=== PATIENT | female | born 1950 | race Caucasian/White ===

== ENCOUNTER → 2016-03-12 | Outpatient (CLI) | payer OTHER ==
[~2016-03-12] MED LIST: ASPI81TA21 PO; ATEN100T PO; BIOT1CAP8 PO; BIOTCAP2 PO; CHOL1TAB42 PO; CINN500T PO; CLON0.1T12 PO; COEN100C7 PO; COEN50CA22 PO; COQ10 PO; CTP/1 PO; CYAN100T6 PO; FLUT1SPR12 NAE; KRIL1CAP7 PO; LISI-461 PO; LISI-725 PO; LORA-741 PO; MECL1TAB42 PO; MULT-1016 PO; NTRGSL/4 UT; OMEG10007 PO; PANT40TA PO; PRT40 PO; PRVHFAIN INH; STRESS TAB PO; TRAM-453 PO; TURM1CAP4 PO; [UNRECOGNIZED DRUG - CODE] PO
[2016-03-12 14:36] LABS: BASO % 0.4 %; BASO ABS # 0.03 K/uL (0-0.2); COMPLETE YES; EOS % 0.7 %; HEMATOCRIT 41.1 % (37-47); IG% 0.1 %; LYMPH % 37.2 %; LYMPH ABS # 3.03 K/uL (1.2-3.4); MEAN CELL VOLUME 88.4 fL (80-100); MEAN CORPUSCULAR HEMOGLOBIN 30.3 pg (25-34); MEAN CORPUSCULAR HGB CONC 34.3 g/dl (32-36); MEAN PLATELET VOLUME 10.2 fL (7.4-10.4); NEUT % 56.6 %; PLATELET COUNT 282 K/uL (130-400); RED BLOOD COUNT 4.65 M/uL (4.2-5.4); WHITE BLOOD COUNT 8.14 K/uL (4.8-10.8)
[2016-03-12 15:07] LABS: ALT/SGPT 24 U/L (12-78); AST/SGOT 13 U/L (15-37); BLOOD UREA NITROGEN 12 mg/dl (7-18); BUN/CREATININE RATIO 14.5 (10-20); CALCIUM 8.8 mg/dl (8.5-10.1); CARBON DIOXIDE 29 mmol/L (21-32); CHLORIDE 104 mmol/L (98-107); CREATININE 0.81 mg/dl (0.60-1.20); GLUCOSE 81 mg/dl (70-99); SODIUM 141 mmol/L (136-145); TRIGLYCERIDES 497 mg/dl (0-150)
[2016-03-12 15:19] LABS: ALB/GLOB RATIO 1.2 (0.9-2); ALKALINE PHOSPHATASE 71 U/L (45-117); CHOLESTEROL 250 mg/dl (0-200); CHOLESTEROL/HDL RATIO 6.1; HDL CHOLESTEROL 41 mg/dl
--- NOTE | 2016-03-16 11:46 | CODING QUERY MEDICAL NECESSITY ---
SUPPORTING DIAGNOSIS NEEDED A supporting diagnosis is required for the test/procedure performed on this patient in order for us to be reimbursed by the patient's insurance. Please provide a supporting diagnosis for the following test/procedure listed below next to the test name along with your signature. *If there is no additional diagnosis for this patient that would support the following test/procedure please document that below next to the test/procedure. Test(s)/Procedure(s) that require a supporting diagnosis: DOS 03/12 * Vitamin D DIAGNOSIS: Provider Signature: Date: Thank you Ana Colindres Health Information Management Once completed, please kindly fax back to [phone] For questions please call [phone]
== END | disposition home or self-care (01) ==
LOC: C.LAB1850 13:26
PROVIDERS: ATTEND Internal Medicine
DX: R73.9 Hyperglycemia, unspecified (principal); E78.00 Pure hypercholesterolemia, unspecified; R53.83 Other fatigue; E55.9 Vitamin D deficiency, unspecified

== ENCOUNTER → 2016-04-13 | Outpatient (CLI) | payer OTHER | END | disposition home or self-care (01) | LOC: C.MAMM 10:34 | PROVIDERS: ATTEND Internal Medicine | DX: Z13.820 Encounter for screening for osteoporosis (principal); M85.852 Other specified disorders of bone density and structure, left thigh ==

== ENCOUNTER → 2016-04-15 | Outpatient (CLI) | payer OTHER ==
--- NOTE | 2016-04-15 16:34 | MAMMOGRAPHY REPORT ---
BILATERAL DIGITAL SCREENING MAMMOGRAM WITH CAD: 04/15/2016 CLINICAL HISTORY: Routine screening. Patient has no complaints. TECHNIQUE: Current study was also evaluated with a Computer Aided Detection (CAD) system. Bilatera l CC and MLO views were obtained. COMPARISON: Comparison is made to exams dated: 11/12/2014 mammogram and 04/25/2003 mammogram - [facility]. BREAST COMPOSITION: There are scattered areas of fibroglandular density in both breasts. FINDINGS: No suspicious masses, calcifications, or areas of architectural distortion are noted in e ither breast. There has been no significant interval change compared to prior exams. Scattered bilat eral benign-appearing calcifications are not significantly changed. IMPRESSION: ACR BI-RADS CATEGORY 2: BENIGN There is no mammographic evidence of malignancy. A 1 year screening mammogram is recommended. The p atient will receive written notification of the results. Approximately 10% of breast cancers are not detected with mammography. A negative mammographic repor t should not delay biopsy if a clinically suggestive mass is present. Elida Ackerman M.D. ah/:04/15/2016 16:21:04 Facility Operations Manager: Keyona ANDREAR, M, [facility] letter sent: Normal 1/2 BI-RADS Code: ACR BI-RADS Category 2: Benign
== END | disposition home or self-care (01) ==
LOC: C.MAMM 15:45
PROVIDERS: ATTEND Internal Medicine
DX: Z12.31 Encounter for screening mammogram for malignant neoplasm of breast (principal)

== ENCOUNTER → 2016-05-25 | Outpatient (CLI) | payer OTHER ==
[2016-05-25 10:18] LABS: ALB/GLOB RATIO 1.1 (0.9-2); ALKALINE PHOSPHATASE 82 U/L (45-117); ALT/SGPT 21 U/L (12-78); AST/SGOT 13 U/L (15-37); BLOOD UREA NITROGEN 14 mg/dl (7-18); BUN/CREATININE RATIO 17.3 (10-20); CALCIUM 8.8 mg/dl (8.5-10.1); CARBON DIOXIDE 26 mmol/L (21-32); CHLORIDE 108 mmol/L (98-107); CHOLESTEROL 258 mg/dl (0-200); CREATININE 0.79 mg/dl (0.60-1.20); GLUCOSE 113 mg/dl (70-99); POTASSIUM 4.2 mmol/L (3.5-5.1); SODIUM 142 mmol/L (136-145); TRIGLYCERIDES 234 mg/dl (0-150); VERY LOW DENSITY LIPOPROT CALC 47 mg/dl
[2016-05-25 10:21] LABS: CHOLESTEROL/HDL RATIO 6.1; HDL CHOLESTEROL 42 mg/dl; LDL CHOLESTEROL CALCULATED 169 mg/dl
== END | disposition home or self-care (01) ==
LOC: C.LAB1850 08:34
PROVIDERS: ATTEND Internal Medicine
DX: E78.00 Pure hypercholesterolemia, unspecified (principal); Z11.59 Encounter for screening for other viral diseases

== ENCOUNTER 2016-06-02 13:31 | Observation (INO) | payer OTHER ==
[~2016-06-02] VITALS: Ht 167.6 cm; Wt 89.4 kg
[~2016-06-02 13:31] MED LIST changes: -BIOT1CAP8 PO; -CLON0.1T12 PO; -COEN100C7 PO; -COQ10 PO; -CYAN100T6 PO; -FLUT1SPR12 NAE; -KRIL1CAP7 PO; -LISI-461 PO; -LORA-741 PO; -MULT-1016 PO; -PANT40TA PO; -PRVHFAIN INH; -STRESS TAB PO; -TRAM-453 PO; -TURM1CAP4 PO
[2016-06-02 14:33] LABS: BASO % 0.4 %; BASO ABS # 0.03 K/uL (0-0.2); COMPLETE YES; EOS % 0.8 %; HEMATOCRIT 40.9 % (37-47); IG% 0.1 %; LYMPH % 34.2 %; LYMPH ABS # 2.46 K/uL (1.2-3.4); MEAN CELL VOLUME 88.3 fL (80-100); MEAN CORPUSCULAR HEMOGLOBIN 30.7 pg (25-34); MEAN CORPUSCULAR HGB CONC 34.7 g/dl (32-36); MEAN PLATELET VOLUME 10.2 fL (7.4-10.4); MONO % 5.8 %; NEUT % 58.7 %; PLATELET COUNT 266 K/uL (130-400); RED BLOOD COUNT 4.63 M/uL (4.2-5.4); WHITE BLOOD COUNT 7.19 K/uL (4.8-10.8)
[2016-06-02] MEDS ORDERED: OPTIRAY 320 IV PRN (14:45)
[2016-06-02 15:05] LABS: ALKALINE PHOSPHATASE 75 U/L (45-117); ALT/SGPT 21 U/L (12-78); AST/SGOT 17 U/L (15-37); BLOOD UREA NITROGEN 14 mg/dl (7-18); BUN/CREATININE RATIO 16.5 (10-20); CALCIUM 8.7 mg/dl (8.5-10.1); CARBON DIOXIDE 27 mmol/L (21-32); CHLORIDE 107 mmol/L (98-107); CREATININE 0.85 mg/dl (0.60-1.20); GLUCOSE 99 mg/dl (70-99); POTASSIUM 4.1 mmol/L (3.5-5.1); SODIUM 141 mmol/L (136-145)
--- NOTE | 2016-06-02 15:08 | DIAGNOSTIC IMAGING REPORT ---
CHEST ONE VIEW PORTABLE HISTORY: chest pressure COMPARISON: Chest 10/31/2014. FINDINGS: No pneumothorax. No pleural fusions. The heart remains mildly enlarged. Mild diffuse interstitial thickening remains unchanged. Bibasilar linear densities favor subsegmental atelectasis or scarring. There is a tortuous thoracic aorta, unchanged. IMPRESSION: No change in the cardiomegaly and mild interstitial thickening. No acute process within the chest. Electronically signed by: Carl Oropeza M.D. 06/02/2016 3:06 PM Dictated Date/Time: 06/02/2016 3:04 PM
[2016-06-02] MEDS ORDERED: MULT-1016 PO (15:11)
[2016-06-02] MEDS ORDERED: LISI-461 PO (15:11)
[2016-06-02 15:51] LABS: URINE APPEARANCE CLEAR (CLEAR); URINE BILIRUBIN NEG (NEG); URINE COLOR YELLOW; URINE NITRITE NEG (NEG); URINE SPECIFIC GRAVITY 1.007 (1.000-1.030); UROBILINOGEN NEG (NEG); ZZUR CULT IF INDIC CLEAN CATCH NO
[2016-06-02 15:52] LABS: MANUAL MICROSCOPIC REQUIRED? NO; REVIEW REQ? NO
--- NOTE | 2016-06-02 16:03 | DIAGNOSTIC IMAGING REPORT ---
CT ABD/PELVIS IV CONTRAST ONLY CLINICAL HISTORY: Left lower quadrant abdominal pain COMPARISON STUDY: 07/21/2015 TECHNIQUE: Following the IV administration of 94 mL of Optiray-320, CT scan of the abdomen and pelvis was performed from the lung bases to the proximal femurs. Images are reviewed in the axial, sagittal, and coronal planes. IV contrast was administered without complication. CT DOSE: 547.90 mGy.cm FINDINGS: Lower chest: There are minor basilar atelectatic changes. There is a small hiatal hernia. Liver: The contrast-enhanced liver is normal in size, contour, and attenuation. There is no intrahepatic biliary ductal dilatation. The hepatic veins and portal veins are patent. Gallbladder: Cholelithiasis. Spleen: Normal in size and attenuation. Pancreas: Unremarkable. Adrenal glands: There is a stable 2 cm left adrenal nodule. This was previously demonstrated to represent an adenoma. 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 There is a 3 mm left renal hypodensity likely representing a cyst Bowel: There are no transition zones to indicate bowel obstruction. There is no evidence of acute diverticulitis. The appendix is not visualized with certainty. There are no findings to indicate acute appendicitis. Peritoneum: There is no intraperitoneal free air or abdominal ascites. Vasculature: The abdominal aorta is normal in course and caliber. Adenopathy: None. Pelvic viscera: The uterus appears surgically absent. Skeletal structures: No destructive osseous lesions are seen. IMPRESSION: 1. No evidence of bowel obstruction. No evidence of free air 2. Stable 2 cm left adrenal adenoma 3. Small hiatal hernia 4. Cholelithiasis 5. No acute inflammatory changes. No evidence of acute diverticulitis. Electronically signed by: Kaden Villela M.D. 06/02/2016 4:01 PM Dictated Date/Time: 06/02/2016 3:55 PM
[2016-06-02] MEDS ORDERED: ASPIRIN 324 MG CHEW PO STA (16:11)
[2016-06-02] MEDS ORDERED: ACETAMINOPHEN 325 MG TAB PO PRN (16:15)
[2016-06-02] MEDS ORDERED: ONDANSETRON INJ 2 MG/ML 2 ML VIAL IV PRN (16:15)
[2016-06-02] MEDS ORDERED: MoRPHine SULFATE 2 MG/ML CARP IV PRN (16:15)
[2016-06-02] MEDS ORDERED: NITROGLYCERIN 0.4 MG SL PER TAB CHARGE SL PRN (16:15)
--- NOTE | 2016-06-02 16:25 | EMERGENCY ROOM VISIT NOTE ---
History Report prepared by Bonita: Rocio New Under the Supervision of: Dr. Jaswinder Bradford M.D. First contact with patient: 14:14 Chief Complaint: CHEST PAIN Stated Complaint: HEART ATTACK SX Nursing Triage Summary: states she had a heart attack in 2011 and that it was "atypical" and so today when she had abdominal pain and "jaw and ear pain" she got scared that she was having an atypical heartattack-took 2 nitro in route-private vehicle from [place] History of Present Illness The patient is a 65 year old female who presents to the Emergency Room with complaints of improving chest pain that started earlier today. She describes the pain as heaviness. She came to the ED by private vehicle, but took [address] into the ED. The patient is also experiencing shortness of breath, which started one week ago, but was worse this morning. She states that she is also experiencing jaw and ear pain along with diffuse abdominal pain that started this morning also. She is also experiencing intermittent back pain, but she states that is chronic. The patient denies hematochezia, diarrhea, and urinary symptoms. She denies any recent sick contacts along with eating anything suspicious. The patient denies any history of diverticulitis, but she states that she has a history of H. pylori. The patient also has a history of a CT in 2011 and she had two stents placed. When she had that CT she also experienced minimal chest pain with intermittent chest pressure, so she wanted to make sure her current symptoms weren't a result of problems with her heart. The patient traveled to [facility] over this past weekend, but otherwise denies any recent travel. The patient denies any history of kidney problems. Source of History: patient Onset: earlier today Position: chest Quality: other (heaviness) Timing: other (improving) Modifying Factors (Relieving): other (nitroglycerin) Associated Symptoms: + SOB, + abdominal pain, + back pain (intermittent), No diarrhea, No hematochezia, No urinary symptoms Note: jaw pain, ear pain Review of Systems See HPI for pertinent positives & negatives. A total of 10 systems reviewed and were otherwise negative. Past Medical & Surgical Medical Problems: (1) Ac Myocard Infarct,Oth Inferior Wall,Init Epis Car (2) Coronary Atherosclerosis Of [place] Coronary Vessel (3) Diaphragmatic Hernia (4) Hypertension Nos Family History Diabetes mellitus Heart disease Hypertension Social History Smoking Status: Former Smoker Alcohol Use: none Drug Use: none Marital Status: single Housing Status: lives alone Occupation Status: employed Current/Historical Medications Scheduled Aspirin Enteric Coated (Ecotrin Or Generic), 81 MG PO DAILY Atenolol (Tenormin), 100 MG PO DAILY Biotin (Biotin 5000), 1 CAP PO DAILY Cholecalciferol (Vitamin D), 5,000 UNITS PO DAILY Cinnamon (Cinnamon), 1,000 MG PO DAILY Coenzyme Q10 (Ubidecarenone) (Coq10), 1 TAB PO DAILY Fish Oil (Levan-3), 1 CAP PO AMPM Lisinopril (Lisinopril), 10 MG PO QAM Multiple Vitamins W/ Minerals (Multivitamin Women 50+), 1 TAB PO QAM Pantoprazole (Pantoprazole Sodium), 40 MG PO QAM Scheduled PRN Clonidine Hcl (Catapres), 0.1 MG PO Q8-12H PRN for SBP =<160 Meclizine Hcl (Meclizine Hcl), 1 TAB PO TID PRN for Dizziness or Vertigo Nitroglycerin (Nitrostat), 0.4 MG UT UD PRN for Chest Pain Allergies Coded Allergies: Clopidogrel (Verified Allergy, Unknown, UNKNOWN, 06/02/16) Codeine (Verified Allergy, Unknown, CODEINE DERIVATIVES, 06/02/16) Latex (Verified Allergy, Unknown, UNKNOWN, 06/02/16) Physical Exam Vital Signs Date Time Temp Pulse Resp B/P Pulse Ox O2 Delivery O2 Flow Rate FiO2 06/02/16 16:14 61 16 158/85 16 06/02/16 14:59 53 16 158/81 99 Room Air 06/02/16 14:03 95 Room Air 06/02/16 14:03 14 144/75 95 Room Air 06/02/16 14:01 53 06/02/16 13:40 36.9 57 18 172/88 97 Room Air Physical Exam GENERAL: Patient is well appearing and in no acute distress. HEENT: No acute trauma, normocephalic atraumatic, mucous membranes moist, no nasal congestion, no scleral icterus. NECK: No stridor, no adenopathy, no meningismus, trachea is midline. LUNGS: No dyspnea. Clear to auscultation and equal bilaterally. No wheeze, no rhonchi. HEART: Regular rate and rhythm. No murmurs, rubs, gallops appreciated. ABDOMEN: Soft, mild LLQ tenderness to palpation, bowel sounds positive, no masses appreciated, no peritonitis. BACK: No midline tenderness, no CVA tenderness EXTREMITIES: Normal motion all extremities, no cyanosis, no edema. NEUROLOGIC: Alert and oriented, no acute motor or sensory deficits, no focal weakness, cranial nerves grossly intact. SKIN: No rash, no jaundice, no diaphoresis. Medical Decision & Procedures ER Provider Diagnostic Interpretation: Radiology results and stated below per my review and radiologist interpretation: CHEST ONE VIEW PORTABLE IMPRESSION: No change in the cardiomegaly and mild interstitial thickening. No acute process within the chest. Electronically signed by: Carl Oropeza M.D. 06/02/2016 3:06 PM Dictated Date/Time: 06/02/2016 3:[address] ABD/PELVIS IV CONTRAST ONLY IMPRESSION: 1. No evidence of bowel obstruction. No evidence of free air 2. Stable 2 cm left adrenal adenoma 3. Small hiatal hernia 4. Cholelithiasis 5. No acute inflammatory changes. No evidence of acute diverticulitis. Electronically signed by: Kaden Villela M.D. 06/02/2016 4:01 PM Dictated Date/Time: 06/02/2016 3:55 PM Laboratory Results 06/02/16 14:05 Red Blood Count 4.63, Mean Corpuscular Volume 88.3, Mean Corpuscular Hemoglobin 30.7, Mean Corpuscular Hemoglobin Concent 34.7, Mean Platelet Volume 10.2, Neutrophils (%) (Auto) 58.7, Lymphocytes (%) (Auto) 34.2, Monocytes (%) (Auto) 5.8, Eosinophils (%) (Auto) 0.8, Basophils (%) (Auto) 0.4, Neutrophils # (Auto) 4.21, Lymphocytes # (Auto) 2.46, Monocytes # (Auto) 0.42, Eosinophils # (Auto) 0.06, Basophils # (Auto) 0.03 06/02/16 14:05 Test 06/02/16 14:05 06/02/16 15:20 White Blood Count 7.19 K/uL (4.8-10.8) Red Blood Count 4.63 M/uL (4.2-5.4) Hemoglobin 14.2 g/dL (12.0-16.0) Hematocrit 40.9 % (37-47) Mean Corpuscular Volume 88.3 fL (80-100) Mean Corpuscular Hemoglobin 30.7 pg (25-34) Mean Corpuscular Hemoglobin Concent 34.7 g/dl (32-36) Platelet Count 266 K/uL (130-400) Mean Platelet Volume 10.2 fL (7.4-10.4) Neutrophils (%) (Auto) 58.7 % Lymphocytes (%) (Auto) 34.2 % Monocytes (%) (Auto) 5.8 % Eosinophils (%) (Auto) 0.8 % Basophils (%) (Auto) 0.4 % Neutrophils # (Auto) 4.21 K/uL (1.4-6.5) Lymphocytes # (Auto) 2.46 K/uL (1.2-3.4) Monocytes # (Auto) 0.42 K/uL (0.11-0.59) Eosinophils # (Auto) 0.06 K/uL (0-0.5) Basophils # (Auto) 0.03 K/uL (0-0.2) RDW Standard Deviation 41.8 fL (36.4-46.3) RDW Coefficient of Variation 12.9 % (11.5-14.5) Immature Granulocyte % (Auto) 0.1 % Immature Granulocyte # (Auto) 0.01 K/uL (0.00-0.02) Anion Gap 7.0 mmol/L (3-11) Est Creatinine Clear Calc Drug Dose 74.5 ml/min Estimated GFR () 83.3 Estimated GFR (Non- 71.9 BUN/Creatinine Ratio 16.5 (10-20) Calcium Level 8.7 mg/dl (8.5-10.1) Total Bilirubin 0.4 mg/dl (0.2-1) Direct Bilirubin < 0.1 mg/dl (0-0.2) Aspartate Amino Transf (AST/SGOT) 17 U/L (15-37) Alanine Aminotransferase (ALT/SGPT) 21 U/L (12-78) Alkaline Phosphatase 75 U/L (45-117) Troponin I < 0.015 ng/ml (0-0.045) Total Protein 7.2 gm/dl (6.4-8.2) Albumin 3.7 gm/dl (3.4-5.0) Lipase 217 U/L (73-393) Urine Color YELLOW Urine Appearance CLEAR (CLEAR) Urine pH 7.0 (4.5-7.5) Urine Specific [place] 1.007 (1.000-1.030) Urine Protein NEG (NEG) Urine Glucose (UA) NEG (NEG) Urine Ketones NEG (NEG) Urine Occult Blood NEG (NEG) Urine Nitrite NEG (NEG) Urine Bilirubin NEG (NEG) Urine Urobilinogen NEG (NEG) Urine Leukocyte Esterase NEG (NEG) Urine WBC (Auto) 0 /hpf (0-5) Urine RBC (Auto) 0-4 /hpf (0-4) Urine Hyaline Casts (Auto) 0 /lpf (0-5) Urine Epithelial Cells (Auto) 10-20 /lpf (0-5) Urine Bacteria (Auto) NEG (NEG) Laboratory results as reviewed by me. ECG Indication: chest pain Rate (beats per minute): 57 Rhythm: sinus bradycardia Findings: no acute ischemic change, no ectopy ED Course 1418: The patient was evaluated in room C5. A complete history and physical exam was performed. 1610: Upon reevaluation, the patient is resting comfortably. Discussed results and treatment plan with the patient. She verbalized understanding and agreement with the treatment plan. The patient will be evaluated for further management. 1611: Ordered Aspirin 324 mg PO 1613: Discussed the patient's case with Dr. Rj LEON. The patient will be evaluated for further treatment and disposition. Medical Decision Differential: Cardiac Ischemia (STEMI, NSTEMI, Unstable Angina, etc), Aortic Dissection, Arrhythmia, Pulmonary Embolism, Pneumonia, Pneumothorax, MSK, Infectious, Pericarditis/Myocarditis, Esophageal Rupture, Gastrointestinal, amongst other pathologies entertained. 65 yr old female arrives with resolving chest pressure and LLQ abdominal discomfort. Work-up benign with normal CT abdo. EKG and trop negative. With her history will need cardiac rule out. No evidence sepsis and symptoms not consistent with PE. Stable and in no distress at time of hospitalist evaluation. Given ASA 324mg PO. Consults Time Called: 161 Consulting Physician: Dr. Rj LEON Returned Call: [phone] Discussed the patient's case with Dr. Rj LEON. The patient will be evaluated for further treatment and disposition. Impression Primary Impression: Chest pressure Additional Impression: LLQ abdominal pain Scribe Attestation The scribe's documentation has been prepared under my direction and personally reviewed by me in its entirety. I confirm that the note above accurately reflects all work, treatment, procedures, and medical decision making performed by me. Departure Information Dispostion Being Evaluated By Hospitalist Referrals RV. Sommer MD (PCP) Patient Instructions My [facility] Problem Qualifiers
[2016-06-02] MEDS ORDERED: MECLIZINE HCL 12.5 MG TAB PO PRN (16:30)
[2016-06-02] MEDS ORDERED: IV FLUIDS COMPLETED PRN (16:45)
--- NOTE | 2016-06-02 17:09 | History and Physical ---
History & Physical Date & Time of Service: Jun 02, 2016 at 16:55 Chief Complaint: Heart Attack Sx Primary Care Physician: RV. Sommer MD History of Present Illness Source: patient, hospital records 65 yo female with history of CAD with stenting in 2011 to the RCA after a STEMI and then later to the LAD due to 80% lesion, presents to the ED today with c/o chest pain/pressure. The chest pressure occurred while she was working, she cleans houses for a living. She was not exerting herself any more than she typically does. The pressure was substernal and she also had some associated epigastric pain and nausea and she felt short of breath. Denied diaphoresis. She had nitro and aspirin en route and her symptoms resolved. She admits that her symptoms today have been ongoing intermittently for a few weeks. She has just felt "off." She made an appointment to see cardiology and she saw them last week. They arranged for a nuclear stress test in early June. As far as the abdominal pain, she typically does not have any pain. She has known gall stones and admits to some epigastric pain if she eats too much fats. She moves her bowels regularly and had a BM this morning that was normal. EKG was normal and troponin negative and vitals stable in the ED. CT of the abdomen/pelvis did not show any acute changes to explain her pain. Admission requested. Past Medical/Surgical History HTN Hyperlipidemia Obesity GERD CAD with stenting to the RCA and LAD STEMI in 2011 Gall stones h/o tobacco abuse, quit in 2011 Family History Diabetes mellitus Heart disease Hypertension Social History Smoking Status: Former Smoker (quit 2011) Drug Use: none Marital Status: single Occupational Status: employed Immunizations History of Influenza Vaccine: No History of Tetanus Vaccine?: No History of Pneumococcal: No History of Hepatitis B Vaccine: No Multi-Drug Resistant Organisms History of MDRO: No Allergies Coded Allergies: Clopidogrel (Verified Allergy, Unknown, UNKNOWN, 06/02/16) Codeine (Verified Allergy, Unknown, CODEINE DERIVATIVES, 06/02/16) Latex (Verified Allergy, Unknown, UNKNOWN, 06/02/16) Home Medications Scheduled Aspirin Enteric Coated (Ecotrin Or Generic), 81 MG PO DAILY Atenolol (Tenormin), 100 MG PO DAILY Biotin (Biotin 5000), 1 CAP PO DAILY Cholecalciferol (Vitamin D), 5,000 UNITS PO DAILY Cinnamon (Cinnamon), 1,000 MG PO DAILY Coenzyme Q10 (Ubidecarenone) (Coq10), 1 TAB PO DAILY Fish Oil (Brooks-3), 1 CAP PO AMPM Lisinopril (Lisinopril), 10 MG PO QAM Multiple Vitamins W/ Minerals (Multivitamin Women 50+), 1 TAB PO QAM Pantoprazole (Pantoprazole Sodium), 40 MG PO QAM Scheduled PRN Clonidine Hcl (Catapres), 0.1 MG PO Q8-12H PRN for SBP =<160 Meclizine Hcl (Meclizine Hcl), 1 TAB PO TID PRN for Dizziness or Vertigo Nitroglycerin (Nitrostat), 0.4 MG UT UD PRN for Chest Pain Review of Systems Constitutional: + fatigue, + sweats, + weakness, No chills, No fever, No problem reported, No weight loss Eyes: No diplopia, No discharge, No eye pain, No problem reported, No redness, No worsening of vision ENT: No dental problems, No hearing loss, No nasal symptoms, No problem reported, No sore throat, No tinnitus, No trouble swallowing, No unusual epistaxis Respiratory: + dyspnea on exertion, No cough, No dyspnea at rest, No hemoptysis , No problem reported, No shortness of breath, No sputum, No wheezing Cardiovascular: + chest pain, No PND, No claudication, No edema, No orthopnea, No palpitations Abdomen: + nausea, + pain (epigastric), No GI bleeding, No constipation, No diarrhea, No vomiting Musculoskeletal: No calf pain, No joint pain, No muscle pain, No problem reported, No swelling Genitourinary - Female: No dysuria, No hematuria, No urinary frequency, No urinary incontinence, No urinary retention, No urinary urgency Neurologic: No balance problems, No memory loss, No numbness/tingling, No paralysis, No problem reported, No vertigo, No weakness Psychiatric: No anhedonism, No anxiety, No depression symptoms, No insomnia, No problem reported, No substance abuse Endocrine: No excessive thirst, No excessive urination, No fatigue, No problem reported Hematologic / Lymphatic: No abnormal bleeding/bruising, No clotting problems, No night sweats, No problem reported, No swollen lymph nodes Integumentary: No bleeding, No color change, No itch, No new/changing skin lesions, No problem reported, No rash Allergic / Immunologic: No environmental allergies, No food allergies, No frequent infections, No hives, No pet sensitivities, No poor healing, No problem reported, No prolonged convalescence, No seasonal allergies Physical Exam Vital Signs Date Time Temp Pulse Resp B/P Pulse Ox O2 Delivery O2 Flow Rate FiO2 06/02/16 16:14 61 16 158/85 16 06/02/16 14:59 53 16 158/81 99 Room Air 06/02/16 14:03 95 Room Air 06/02/16 14:03 14 144/75 95 Room Air 06/02/16 14:01 53 06/02/16 13:40 36.9 57 18 172/88 97 Room Air General Appearance: no apparent distress, + obese Head: normocephalic, atraumatic Eyes: normal inspection, EOMI, sclerae normal ENT: normal ENT inspection, hearing grossly normal, pharynx normal Neck: supple, no adenopathy, no JVD, trachea midline Respiratory/Chest: chest non-tender, lungs clear, normal breath sounds, no respiratory distress, no accessory muscle use Cardiovascular: regular rate, rhythm, no edema, no gallop, no JVD, no murmur, normal peripheral pulses Abdomen/GI: normal bowel sounds, soft, no organomegaly, + tenderness (mild RUQ tenderness, negative Tali's sign) Back: normal inspection, no CVA tenderness, no muscle spasm, normal range of motion Extremities/Musculoskelatal: normal inspection, no calf tenderness, normal capillary refill, no pedal edema, normal range of motion 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, no motor/sensory deficits, alert, normal mood/affect, normal reflexes, oriented x 3 Skin: normal color, warm/dry, no rash Diagnostics Laboratory Results Results Past 24 Hours Test 06/02/16 14:05 06/02/16 15:20 Range/Units White Blood Count 7.19 4.8-10.8 K/uL Red Blood Count 4.63 4.2-5.4 M/uL Hemoglobin 14.2 12.0-16.0 g/dL Hematocrit 40.9 37-47 % Mean Corpuscular Volume 88.3 80-100 fL Mean Corpuscular Hemoglobin 30.7 25-34 pg Mean Corpuscular Hemoglobin Concent 34.7 32-36 g/dl Platelet Count 266 130-400 K/uL Mean Platelet Volume 10.2 7.4-10.4 fL Neutrophils (%) (Auto) 58.7 % Lymphocytes (%) (Auto) 34.2 % Monocytes (%) (Auto) 5.8 % Eosinophils (%) (Auto) 0.8 % Basophils (%) (Auto) 0.4 % Neutrophils # (Auto) 4.21 1.4-6.5 K/uL Lymphocytes # (Auto) 2.46 1.2-3.4 K/uL Monocytes # (Auto) 0.42 0.11-0.59 K/uL Eosinophils # (Auto) 0.06 0-0.5 K/uL Basophils # (Auto) 0.03 0-0.2 K/uL RDW Standard Deviation 41.8 36.4-46.3 fL RDW Coefficient of Variation 12.9 11.5-14.5 % Immature Granulocyte % (Auto) 0.1 % Immature Granulocyte # (Auto) 0.01 0.00-0.02 K/uL Sodium Level 141 136-145 mmol/L Potassium Level 4.1 3.5-5.1 mmol/L Chloride Level 107 98-107 mmol/L Carbon Dioxide Level 27 21-32 mmol/L Anion Gap 7.0 3-11 mmol/L Blood Urea Nitrogen 14 7-18 mg/dl Creatinine 0.85 0.60-1.20 mg/dl Est Creatinine Clear Calc Drug Dose 74.5 ml/min Estimated GFR () 83.3 Estimated GFR (Non- 71.9 BUN/Creatinine Ratio 16.5 10-20 Random Glucose 99 70-99 mg/dl Calcium Level 8.7 8.5-10.1 mg/dl Total Bilirubin 0.4 0.2-1 mg/dl Direct Bilirubin < 0.1 0-0.2 mg/dl Aspartate Amino Transf (AST/SGOT) 17 15-37 U/L Alanine Aminotransferase (ALT/SGPT) 21 12-78 U/L Alkaline Phosphatase 75 45-117 U/L Troponin I < 0.015 0-0.045 ng/ml Total Protein 7.2 6.4-8.2 gm/dl Albumin 3.7 3.4-5.0 gm/dl Lipase 217 73-393 U/L Urine Color YELLOW Urine Appearance CLEAR CLEAR Urine pH 7.0 4.5-7.5 Urine Specific Hewlett 1.007 1.000-1.030 Urine Protein NEG NEG Urine Glucose (UA) NEG NEG Urine Ketones NEG NEG Urine Occult Blood NEG NEG Urine Nitrite NEG NEG Urine Bilirubin NEG NEG Urine Urobilinogen NEG NEG Urine Leukocyte Esterase NEG NEG Urine WBC (Auto) 0 0-5 /hpf Urine RBC (Auto) 0-4 0-4 /hpf Urine Hyaline Casts (Auto) 0 0-5 /lpf Urine Epithelial Cells (Auto) 10-20 0-5 /lpf Urine Bacteria (Auto) NEG NEG Diagnostic Radiology CT ABD/PELVIS IV CONTRAST ONLY CLINICAL HISTORY: Left lower quadrant abdominal pain COMPARISON STUDY: 07/21/2015 TECHNIQUE: Following the IV administration of 94 mL of Optiray-320, CT scan of the abdomen and pelvis was performed from the lung bases to the proximal femurs. Images are reviewed in the axial, sagittal, and coronal planes. IV contrast was administered without complication. CT DOSE: 547.90 mGy.cm FINDINGS: Lower chest: There are minor basilar atelectatic changes. There is a small hiatal hernia. Liver: The contrast-enhanced liver is normal in size, contour, and attenuation. There is no intrahepatic biliary ductal dilatation. The hepatic veins and portal veins are patent. Gallbladder: Cholelithiasis. Spleen: Normal in size and attenuation. Pancreas: Unremarkable. Adrenal glands: There is a stable 2 cm left adrenal nodule. This was previously demonstrated to represent an adenoma. 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 There is a 3 mm left renal hypodensity likely representing a cyst Bowel: There are no transition zones to indicate bowel obstruction. There is no evidence of acute diverticulitis. The appendix is not visualized with certainty. There are no findings to indicate acute appendicitis. Peritoneum: There is no intraperitoneal free air or abdominal ascites. Vasculature: The abdominal aorta is normal in course and caliber. Adenopathy: None. Pelvic viscera: The uterus appears surgically absent. Skeletal structures: No destructive osseous lesions are seen. IMPRESSION: 1. No evidence of bowel obstruction. No evidence of free air 2. Stable 2 cm left adrenal adenoma 3. Small hiatal hernia 4. Cholelithiasis 5. No acute inflammatory changes. No evidence of acute diverticulitis. CXR normal EKG sinus bradycardia Impression Assessment and Plan 65 yo female with h/o CAD s/p stenting, presents with chest pressure and nausea and epigastric pain - Chest pain/pressure in patient with known CAD: no signs of acute CT currently observe on tele, cycle troponin x 2 more sets, repeat EKG with chest pain and in the AM if troponin negative, will perform Lexiscan stress test tomorrow for answer on CAD (was scheduled as outpatient in a few weeks) continue aspirin, Atenolol, fish oil use Nitro SL and Morphine PRN for increased pain - Epigastric pain: check GB ultrasound to look for any cholecystitis doubt this with normal WBC and LFT - HTN: stable, continue home meds - Hyperlipidemia: fish oil - DVT prophylaxis: Lovenox Level of Care Telemetry Resuscitation Status FULL RESUSCITATION VTE Prophylaxis VTE Risk Assessment Done? Y/N: Yes Risk Level: Moderate Given or contraindicated: Enoxaparin (Lovenox)SQ Additional Copies To RV. Sommer MD; Kamron Fuentes M.D.
[2016-06-02 19:04] VITALS: BP 161/90; PULSE 55; TEMP 36.8; O2SAT 100; Ht 167.6 cm; Wt 89.4 kg
[2016-06-02 19:35] VITALS: BP 158/88; PULSE 59; TEMP 36.8; O2SAT 94
[2016-06-02] MEDS: OMEGA-3 (PURIFIED FISH OIL) 1 GM CAP PO SCH (20:25)
[2016-06-02 20:26] LABS: PROTHROMBIN TIME (PATIENT) 10.2 SECONDS (9.0-12.0)
[2016-06-02] MEDS ORDERED: ENOXAPARIN 40 MG/0.4 ML SYR SC SCH (22:00)
[2016-06-02 23:26] VITALS: BP 151/79; PULSE 62; TEMP 36.7; O2SAT 96
[2016-06-03] VITALS (7 sets, daily range): BP systolic 119–174; BP diastolic 67–97; PULSE 51–89; TEMP 36.6–36.9; O2SAT 95–97
[2016-06-03 06:29] LABS: BASO % 0.3 %; BASO ABS # 0.02 K/uL (0-0.2); COMPLETE YES; EOS % 1.1 %; HEMATOCRIT 41.5 % (37-47); IG% 0.2 %; LYMPH % 36.4 %; LYMPH ABS # 2.32 K/uL (1.2-3.4); MEAN CELL VOLUME 88.7 fL (80-100); MEAN CORPUSCULAR HEMOGLOBIN 30.1 pg (25-34); MEAN PLATELET VOLUME 10.2 fL (7.4-10.4); PLATELET COUNT 233 K/uL (130-400); RED BLOOD COUNT 4.68 M/uL (4.2-5.4); WHITE BLOOD COUNT 6.37 K/uL (4.8-10.8)
[2016-06-03 07:04] LABS: BLOOD UREA NITROGEN 14 mg/dl (7-18); BUN/CREATININE RATIO 18.6 (10-20); CALCIUM 8.5 mg/dl (8.5-10.1); CARBON DIOXIDE 26 mmol/L (21-32); CHLORIDE 110 mmol/L (98-107); CREATININE 0.74 mg/dl (0.60-1.20); GLUCOSE 101 mg/dl (70-99); SODIUM 144 mmol/L (136-145)
--- NOTE | 2016-06-03 07:47 | DIAGNOSTIC IMAGING REPORT ---
ABDOMINAL ULTRASOUND, RIGHT UPPER QUADRANT HISTORY: Pain. Nausea. Epigastric pain, evaluate gall bladder. COMPARISON: None. FINDINGS: Pancreas: The pancreas demonstrates a normal echotexture. Liver: Unremarkable. Gallbladder: Several gallstones. Normal caliber gallbladder wall CBD: 4 mm Right kidney: No hydronephrosis. IMPRESSION: Several small gallstones. Normal caliber bile ducts and otherwise negative study Electronically signed by: Flip Beckwith M.D. 06/03/2016 7:45 AM Dictated Date/Time: 06/03/2016 7:44 AM
[2016-06-03] MEDS ORDERED: REGADENOSON 0.4 MG/5 ML SYR ONE (08:07)
[2016-06-03] MEDS ORDERED: PANTOprazole SOD 40 MG TAB PO SCH (09:00)
[2016-06-03] MEDS ORDERED: LISINOPRIL 10 MG TAB PO SCH (09:00)
[2016-06-03] MEDS ORDERED: ASPIRIN 81 MG ECTAB PO SCH (09:00)
[2016-06-03] MEDS: OMEGA-3 (PURIFIED FISH OIL) 1 GM CAP PO SCH (10:39)
--- NOTE | 2016-06-03 13:13 | MYOCARDIAL PERFUSION SCAN ---
DATE OF PROCEDURE: 06/03/2016. TIME: 12:36 p.m. ORDERING PHYSICIAN: Dr. Lewis De La Rosa. PRIMARY GUILLOTINE TRIMMER: Dr. Fuentes. PROCEDURE: 1. Myocardial perfusion study performed in multiple views/images. 2. Lexiscan pharmacologic stress ECG. INDICATIONS: 1. Chest pain. 2. CAD status post PCI in 2012 to RCA and LAD. CONSENT: Informed written consent was obtained. PROCEDURAL DETAILS: For the stress portion of the study, Lexiscan 0.4 mg was intravenously administered over 10-15 seconds followed by saline flush. This was followed by 33.2 mCi of technetium-99m Cardiolite injected intravenously at 9:25 a.m. on 06/03/2016. Thirty minutes following the injection, imaging of the heart was performed in multiple projections. For the rest portion of the study 10.7 mCi of technetium-99m Cardiolite was intravenously injected at 7:40 a.m. on the same day. One hour following the injection, imaging of the heart was performed in the same projections. LEXISCAN ECG STRESS: Baseline ECG demonstrated sinus bradycardia at 57 BPM. Possible septal infarct. Lexiscan ECG demonstrated no significant ST changes. No arrhythmia. No significant pause. There was mild chest discomfort following Lexiscan infusion which quickly resolved without intervention. Maximum heart rate was 81 beats per minute representing 52% maximum predicted heart rate. Resting blood pressure was 176/88 mmHg. Peak blood pressure was 183/97 mmHg. FINDINGS: Rotating raw imaging demonstrated no significant motion artifact or lung uptake. Heart size appeared normal. Myocardial perfusion demonstrated a moderate-sized area of moderately reduced uptake in the inferolateral wall from base to distal left ventricle which was fixed in post-stress and rest imaging. There was a small area of mildly reduced uptake in the mid to distal anterior septum which was also fixed in post-stress and rest imaging. There were no significant reversible defects to suggest ischemia. Ejection fraction calculated 60%. WALL MOTION: The mid to distal anterior septum appeared hypokinetic. The inferolateral wall appeared hypokinetic. Other wall motion segments appeared normal. There was no significant transient ischemic dilation. IMPRESSION: 1. There were no significant ischemic changes suggestive of myocardial perfusion study. 2. Proximal to distal inferolateral wall, and mid to distal anteroseptal had fixed defects suggesting prior infarcts. 3. Hypokinesis of the mid to distal anteroseptal and proximal to distal inferolateral wall. 4. Normal left ventricular systolic function with calculated ejection fraction 60%. 5. Lexiscan induced chest discomfort. 6. Nondiagnostic Lexiscan electrocardiogram.
--- NOTE | 2016-06-03 13:35 | Discharge Instructions ---
Discharge Instructions Date of Service Jun 03, 2016. Admission Reason for Admission: Chest Pain Discharge Discharge Diagnosis / Problem: Chest pain/discomfort Discharge Goals Goal(s): Decrease discomfort, Improve function, Diagnostic testing, Therapeutic intervention Activity Recommendations Activity Limitations: resume your previous activity . Instructions / Follow-Up Instructions / Follow-Up You were admitted to the hospital for overnight observation after presenting to the ER with chest discomfort. You received a full cardiac work up which included cardiac monitoring, EKGs, cardiac enzymes, and a nuclear stress test. Cardiac monitoring did not reveal any arrhythmias or acute events. Your EKGs also did not show any ischemic changes. Cardiac enzymes were normal. Your nuclear stress test did not show any significant ischemic changes, although the agent given did seem to induce more chest discomfort. From a cardiology standpoint, there does not seem to be any concern for an acute event, and you are medically stable for discharge. Medications: *No changes have been made to your medications. Please continue to take your home medications as prescribed. Follow up: *Please follow up with your primary care provider within 1 week regarding your hospital stay. *Due to the presentation of your chronic right upper quadrant abdominal pain, it is recommended that you follow up with Dr. Art of gastroenterology for further diagnostic studies and a possible elective cholecystectomy (removal of the gall bladder). You may try eating a low fat diet to see if this helps with your symptoms. Try to take note if the abdominal pain is correlated to eating, especially fatty foods. Please seek medical attention if you experience fevers, chills, sweats, chest pain, shortness of breath, nausea, vomiting, lightheadedness, loss of consciousness, numbness or tingling. Current Hospital Diet Patient's current hospital diet: AHA Diet (Heart Healthy) Discharge Diet Recommended Diet: AHA Diet (Heart Healthy) Procedures Procedures Performed: Nuclear stress test--no ischemic changes Pending Studies Studies pending at discharge: no Laboratory Results Lipid Panel Test 05/25/16 08:36 Range/Units Triglycerides Level 234 H 0-150 mg/dl Cholesterol Level 258 H 0-200 mg/dl HDL Cholesterol 42 mg/dl Cholesterol/HDL Ratio 6.1 LDL Cholesterol, Calculated 169 mg/dl Medical Emergencies . Who to Call and When: Medical Emergencies: If at any time you feel your situation is an emergency, please call 911 immediately. . Non-Emergent Contact Non-Emergency issues call your: Primary Care Provider Call Non-Emergent contact if: you have a fever, your pain is not controlled, your pain is worsening, your pain is unusual for you, your pain is concerning you, you have any medication questions . Past History Medical & Surgical History: (1) Chest pain (2) Abdominal pain . "Provider Documentation" section prepared by Shannan Mcdaniel. . VTE Core Measure Inpt VTE Proph given/why not?: Enoxaparin (Lovenox)SQ
--- NOTE | 2016-06-03 13:58 | Discharge Summary ---
Discharge Summary Date of Service Jun 03, 2016. (Shannan Mcdaniel PA-C) Discharge Summary Admission Date: Jun 02, 2016 at 16:17 Discharge Date: Jun 03, 2016 Discharge Disposition: Home Principal Diagnosis: Chest pain Immunizations: Have You Had Influenza Vaccine: No History of Tetanus Vaccine?: No History of Pneumococcal: No History of Hepatitis B Vaccine: No Procedures: Nuclear stress test: IMPRESSION: 1. There were no significant ischemic changes suggestive of myocardial perfusion study. 2. Proximal to distal inferolateral wall, and mid to distal anteroseptal had fixed defects suggesting prior infarcts. 3. Hypokinesis of the mid to distal anteroseptal and proximal to distal inferolateral wall. 4. Normal left ventricular systolic function with calculated ejection fraction 60%. 5. Lexiscan induced chest discomfort. 6. Nondiagnostic Lexiscan electrocardiogram. (Shannan Mcdaniel PA-C) Medication Reconciliation Continued Medications: Aspirin Enteric Coated (Ecotrin Or Generic) 81 Mg Tab 81 MG PO DAILY Atenolol (Tenormin) 100 Mg Tab 100 MG PO DAILY Biotin (Biotin 5000) 5 Mg Cap 1 CAP PO DAILY Cholecalciferol (Vitamin D) 5,000 Unit Tab 5000 UNITS PO DAILY Cinnamon (Cinnamon) 500 Mg Tab 1000 MG PO DAILY Clonidine Hcl (Catapres) 0.1 Mg Tab 0.1 MG PO Q8-12H PRN for SBP =<160, TAB Coenzyme Q10 (Ubidecarenone) (Coq10) Unknown Strength Cap 1 TAB PO DAILY Fish Oil (Anselmo-3) 1 Ea Cap 1 CAP PO AMPM, CAP Lisinopril (Lisinopril) 10 Mg Tab 10 MG PO QAM Meclizine Hcl (Meclizine Hcl) 25 Mg Tab 1 TAB PO TID PRN for Dizziness or Vertigo for 10 Days, #30 TAB Multiple Vitamins W/ Minerals (Multivitamin Women 50+) 1 Tab Tab 1 TAB PO QAM Nitroglycerin (Nitrostat) 0.4 Mg Tab 0.4 MG UT UD PRN for Chest Pain Pantoprazole (Pantoprazole Sodium) 40 Mg Tab 40 MG PO QAM, #30 TAB Referrals At Discharge Follow up Referrals: Family Practice Referral - Within 1 Week with RV. Sommer MD Reception Interviewer Referral - Within a Month with Phil Art D.O. Discharge Exam Patient complains of a 6/10 tight/cramping pain in her RUQ, although this is improved compared to admission, which was a 10/10 pain. The patient states that this pain has been chronic for the last 3 years. It is not always this severe, but it is constant. She has had several other "attacks" in the past, which were thought to be due to her gallbladder. Abdomen/pelvis CT and RUQ ultrasound show gallstones but no other acute findings. The patient currently denies any chest discomfort or nausea. She does report feeling fatigued with everything going on. The patient denies fevers, chills, sweats, palpitations, claudication, cough, wheezing, shortness of breath, nausea, vomiting, dysuria, hematuria, urinary retention, paralysis, weakness, numbness and tingling. Review of Systems: Constitutional: + fatigue, No chills, No fever, No sweats, No weakness Eyes: No diplopia, No eye pain, No worsening of vision ENT: No hearing loss, No sore throat, No trouble swallowing Respiratory: No cough, No shortness of breath, No wheezing Cardiovascular: No chest pain, No claudication, No palpitations Abdomen: + pain (6/10 tight/cramping pain in RUQ), No nausea, No vomiting Musculoskeletal: No calf pain, No joint pain, No muscle pain Genitourinary - Female: No dysuria, No hematuria, No urinary retention Neurologic: No numbness/tingling, No paralysis, No weakness Integumentary: No color change, No itch, No rash Physical Exam: General Appearance: WD/WN, no apparent distress, + obese Eyes: normal inspection, PERRL, EOMI ENT: normal ENT inspection, hearing grossly normal, pharynx normal Neck: supple, no JVD, trachea midline Respiratory/Chest: lungs clear, normal breath sounds, no respiratory distress Cardiovascular: regular rate, rhythm, no gallop, no murmur Abdomen / GI: normal bowel sounds, soft, + tenderness (marked RUQ tenderness , mild LUQ tenderness), + pertinent finding (+ Rueda's sign) Extremities: normal inspection, no calf tenderness, no pedal edema Neurologic/Psychiatric: alert, normal mood/affect, oriented x 3 Skin: normal color, warm/dry, no rash (Shannan Mcdaniel, DARREN) Hospital Course 65 y/o female with a history of CAD s/p stenting, STEMI, HTN, HLD, and GERD who presents to the ED with chest pressure, nausea and epigastric pain. Chest pain--pt reports episode feels just like previous MN -Admitted to telemetry. Pt had no acute events overnight on tele, remained in sinus bradycardia with HR in 50s -Troponin negative x 3 -Repeat EKG no ischemic changes -Lexiscan stress test negative for ischemic changes. Normal LVEF. -Continue ASA, BB, fish oil Epigastric pain--chronic for last 3 years, pt has had several more acute attacks which have been though to be GB related -Abd/pelvis CT shows no evidence bowel obstruction or free air. Stable 2 cm left adrenal adenoma. Small hiatal hernia. Cholelithiasis without acute cholecystitis. No acute inflammatory changes or acute diverticulitis. -RUQ ultrasound confirms gallstones, otherwise negative -No fevers, leukocytosis, or LFT changes -Positive Rueda's sign on physical exam -Recommended following up with GI regarding gallbladder for further testing, possible cholecystectomy despite normal CT and ultrasound HTN--stable -Continue atenolol 100 mg PO qd and lisinopril 10 mg PO qd -Pt initially hypertensive on arrival, possible secondary to stress and pt admits to anxiety -After receiving morning BP meds, BP improved to 158/91 HLD -Continue fish oil supplement GERD -Continue Protonix 40 mg PO qd DVT prophylaxis -Enoxaparin 40 mg SC q24h Code Status -Level I, FULL RESUSCITATION STATUS Dispo -Cardiac chest pain ruled out, pt stable for discharge home -Discussed following up with GI regarding chronic abdominal pain. Pt has seen Dr. Art in the past for scopes Total Time Spent: Greater than 30 minutes This includes examination of the patient, discharge planning, medication reconciliation, and communication with other providers. (Shannan Mcdaniel, FRANCISCO-C) I agree with PA assessment and plan and have seen and examined pt myself Pt resting comfortably in bed Presents with chest pain Trops neg x 3 sets Strong cardiac hx Underwent stress test, preserved EF, no ischemic changes Pt stable for discharge home (Lamine Harris, D.O.) Discharge Instructions Please refer to the electronic Patient Visit Report (Discharge Instructions) for additional information. (Shannan Mcdaniel ., PA-C) Follow-Up F/u with PCP in 1 week F/u with GI (Dr. Art) w/in 1 month (Shannan Mcdaniel PA-C) Additional Copies To RV. Sommer MD
[2016-06-24] MEDS ORDERED: COEN100C7 PO (11:34)
[2016-06-24] MEDS ORDERED: LORA-741 PO (11:34)
[2016-06-24] MEDS ORDERED: TURM1CAP4 PO (11:34)
[2016-06-24] MEDS ORDERED: FLUT1SPR12 NAE (11:34)
[2016-06-24] MEDS ORDERED: STRESS TAB PO (11:34)
[2016-08-20] MEDS ORDERED: CYAN100T6 PO (09:04)
[2016-08-20] MEDS ORDERED: COQ10 PO (09:04)
[2016-08-20] MEDS ORDERED: BIOT1CAP8 PO (09:04)
[2016-08-20] MEDS ORDERED: CLON0.1T12 PO (09:06)
[2016-08-20] MEDS ORDERED: PANT40TA PO (09:06)
[2016-08-20] MEDS ORDERED: KRIL1CAP7 PO (09:07)
[2016-08-20] MEDS ORDERED: PRVHFAIN INH (09:15)
== END 2016-06-03 14:45 | disposition home or self-care (01) ==
LOC: ENRESERVDT → ENRESERVTM → C.EDB 13:32 → C.2T 16:17
PROVIDERS: ADMIT Internal Medicine; ATTEND Internal Medicine
DX: R07.9 Chest pain, unspecified (principal); R10.13 Epigastric pain; I10 Essential (primary) hypertension; E78.5 Hyperlipidemia, unspecified; K21.9 Gastro-esophageal reflux disease without esophagitis; E66.9 Obesity, unspecified; I25.10 Atherosclerotic heart disease of native coronary artery without angina pectoris; K80.20 Calculus of gallbladder without cholecystitis without obstruction; I25.2 Old myocardial infarction; Z79.82 Long term (current) use of aspirin; Z87.891 Personal history of nicotine dependence; Z83.3 Family history of diabetes mellitus; Z82.49 Family history of ischemic heart disease and other diseases of the circulatory system

== ENCOUNTER → 2016-06-18 | Outpatient (CLI) | payer OTHER ==
[~2016-06-18] MED LIST changes: +BIOT1CAP8 PO; +CLON0.1T12 PO; +COEN100C7 PO; +COQ10 PO; +CYAN100T6 PO; +FLUT1SPR12 NAE; +KRIL1CAP7 PO; +LISI-461 PO; -LISI-725 PO; +LORA-741 PO; +MULT-1016 PO; +PANT40TA PO; +PRVHFAIN INH; +STRESS TAB PO; +TRAM-453 PO; +TURM1CAP4 PO; -[UNRECOGNIZED DRUG - CODE] PO
--- NOTE | 2016-06-18 13:41 | DIAGNOSTIC IMAGING REPORT ---
NUCLEAR MEDICINE HEPATOBILIARY SCAN CLINICAL HISTORY: Right upper quadrant abdominal pain. Cholelithiasis. COMPARISON: Right upper quadrant ultrasound June 02, 2016 and hepatobiliary scan May 09, 2014. TECHNIQUE: 5.5 mCi of technetium 99m Choletec IV was injected at 12:25 PM on June 18, 2016. Immediately following injection, imaging of the abdomen was carried out for 60 minutes in the anterior projection. FINDINGS: Hepatic uptake of radiotracer is prompt and homogeneous. Activity is first identified within the common bile duct and gallbladder at 10 minutes. Small bowel activity is first identified at 45 minutes. IMPRESSION: Normal hepatobiliary scan. No evidence of acute cholecystitis. Electronically signed by: Lucio Orozco M.D. 06/18/2016 1:40 PM Dictated Date/Time: 06/18/2016 1:38 PM
== END | disposition home or self-care (01) ==
LOC: C.NUCL 12:00
PROVIDERS: ATTEND Nurse Practitioner Adult Health
DX: K80.20 Calculus of gallbladder without cholecystitis without obstruction (principal); R10.11 Right upper quadrant pain

== ENCOUNTER → 2016-06-24 | Outpatient (CLI) | payer OTHER ==
--- NOTE | 2016-06-24 17:02 | DIAGNOSTIC IMAGING REPORT ---
CHEST 2 VIEWS ROUTINE CLINICAL HISTORY: Shortness of breath. Fatigue. COMPARISON STUDY: Chest radiograph June 02, 2016. FINDINGS: Lung volumes are normal. Lungs are clear. There is no pneumothorax or pleural effusion. Mild cardiomegaly is unchanged. There is no evidence of pulmonary edema. IMPRESSION: No acute cardiopulmonary findings. Electronically signed by: Lucio Orozco M.D. 06/24/2016 5:01 PM Dictated Date/Time: 06/24/2016 5:00 PM
[2016-06-24 17:37] LABS: BASO % 0.4 %; BASO ABS # 0.04 K/uL (0-0.2); COMPLETE YES; EOS % 0.8 %; HEMATOCRIT 44.1 % (37-47); IG% 0.1 %; LYMPH % 31.3 %; LYMPH ABS # 3.02 K/uL (1.2-3.4); MEAN CELL VOLUME 88.2 fL (80-100); MEAN CORPUSCULAR HEMOGLOBIN 29.6 pg (25-34); MEAN CORPUSCULAR HGB CONC 33.6 g/dl (32-36); MONO % 4.9 %; NEUT % 62.5 %; PLATELET COUNT 299 K/uL (130-400); WHITE BLOOD COUNT 9.64 K/uL (4.8-10.8)
[2016-06-24 18:13] LABS: BLOOD UREA NITROGEN 11 mg/dl (7-18); CALCIUM 9.2 mg/dl (8.5-10.1); CARBON DIOXIDE 31 mmol/L (21-32); CHLORIDE 104 mmol/L (98-107); CREATININE 0.76 mg/dl (0.60-1.20); GLUCOSE 100 mg/dl (70-99); POTASSIUM 4.1 mmol/L (3.5-5.1); SODIUM 140 mmol/L (136-145)
== END ==
LOC: C.RAD1850 16:33
PROVIDERS: ATTEND Nurse Practitioner Adult Health
DX: R06.02 Shortness of breath (principal); R53.83 Other fatigue; I10 Essential (primary) hypertension

== ENCOUNTER → 2016-06-29 | Outpatient (CLI) | payer OTHER ==
[~2016-06-29] MED LIST changes: -COEN50CA22 PO; -CTP/1 PO; +OPTIRAY 320 IV PRN
--- NOTE | 2016-06-29 11:09 | DIAGNOSTIC IMAGING REPORT ---
CT SCAN OF THE CHEST WITH IV CONTRAST CLINICAL HISTORY: Chronic dyspnea. COMPARISON STUDY: Chest x-ray dated 06/24/2016. TECHNIQUE: Following the IV administration of 120 cc of Optiray 320, CT scan of the thorax was performed from the thoracic inlet to the upper abdomen. Images are reviewed in the axial, sagittal, and coronal planes. IV contrast was administered without complication. CT DOSE: 402.29 mGy.cm FINDINGS: Thyroid: Imaged portions of the thyroid gland are normal in size and attenuation. Bilateral low-attenuation nodules measure up to 1.3 cm. Thoracic aorta: There is mild atherosclerotic calcification of the thoracic aorta, which is normal in caliber and demonstrates 4-vessel variant arch anatomy. An aberrant right subclavian artery arises as the fourth branch and courses posterior to the esophagus. No dissection is seen. Pulmonary vasculature: The pulmonary trunk is normal in caliber. There are no filling defects identified in the central pulmonary vessels to indicate pulmonary embolus. Note that this examination was not protocoled for evaluation of the pulmonary arteries. Heart: The heart is enlarged and without pericardial effusion. The coronary arteries are densely calcified. Lungs and pleural spaces: There are mild emphysematous changes. No airspace consolidation or pleural effusion is identified. There are scattered calcified granulomas. The trachea and central airways are clear. Mediastinum: There are scattered subcentimeter mediastinal lymph nodes. These are not pathologically enlarged by size criteria. Rosi: Clear. Axillae: There is no axillary lymphadenopathy. Upper abdomen: A 2.3 cm left adrenal nodule meets CT criteria for a fat-containing adenoma. There is a moderate hiatal hernia. Skeletal structures: The skeletal structures are osteopenic. Mild degenerative change is noted throughout the thoracic spine. No lytic or blastic bony lesions are seen. IMPRESSION: 1. Cardiomegaly and mild emphysema. 2. There is no airspace consolidation or pleural effusion. 3. An aberrant right subclavian artery is incidentally noted. 4. Moderate hiatal hernia. 5. There are low-attenuation thyroid nodules measure up to 1.3 cm. Follow-up with a nonemergent thyroid ultrasound is recommended for further assessment. 6. Additional changes as above. Electronically signed by: Josue Corral M.D. 06/29/2016 11:08 AM Dictated Date/Time: 06/29/2016 11:00 AM
== END | disposition home or self-care (01) ==
LOC: C.CTS 10:25
PROVIDERS: ATTEND Nurse Practitioner Adult Health
DX: R06.02 Shortness of breath (principal)

== ENCOUNTER → 2016-06-30 | Day surgery (SDC) | payer OTHER ==
[2016-06-24 11:35] VITALS: Ht 168.9 cm; Wt 89.1 kg
[~2016-06-30] VITALS: Ht 168.9 cm; Wt 89.1 kg
[~2016-06-30] MED LIST changes: +LIDOCAINE HCL 2% 2 ML VIAL (20MG/ML) ONE; +ONDANSETRON INJ 2 MG/ML 2 ML VIAL ONE; -OPTIRAY 320 IV PRN; +PROPOFOL IV EMULSION 10 MG/ML 20 ML VIAL IV ONE; +SODIUM CHLORIDE 0.9% 500ML 500 ML IV ONE
[2016-06-30 08:05] VITALS: TEMP 36.7
--- NOTE | 2016-06-30 08:36 | Endo History and Physical ---
History & Physical Date of Service: June 30, 2016. Chief Complaint: RUQ pain, reflux, hiatal hernia, schatzki ring Referring Physician: Dr Louis History of Present Illness 65 yo CF who presents for EGD secondary to RUQ abdominal pain, GERD, Hiatal hernia and Schatzki's Ring. Past Medical History Angioplasty/Stent, Arthritis, Anxiety, Reflux, High Cholesterol, Hypertension, HI Past Surgical History Hx Cardiac Surgery: No (HEART CATH X 2-2 STENTS PLACED) Hx Internal Defibrillator: No Hx Pacemaker: No Hx Abdominal Surgery: Yes ( X 3, JUDE BSO) Hx of Implantable Prosthesis: No Hx Post-Op Nausea and Vomiting: No Hx Cancer Surgery: No Hx Thoracic Surgery: No Hx Orthopedic: No Hx Urinary Tract Surgery: No Family History Colon CA, Polyp Social History Smoking Status: Former Smoker Hx Substance Use: No Hx Alcohol Use: No Allergies Coded Allergies: Clopidogrel (Verified Allergy, Unknown, BRUISING, 06/24/16) Codeine (Verified Allergy, Unknown, CODEINE DERIVATIVES-CODED AFTER TAKING , 06/24/16) Latex (Verified Allergy, Unknown, SWELLING, 06/24/16) Current Medications Reported Home Medications Medications Dose Route/Sig Max Daily Dose Days Date Category Ativan (Lorazepam) 0.5 Mg Tab 0.5 Mg PO TID PRN 06/24/16 Reported [Stress Tab] 1 Tab PO QAM 06/24/16 Reported Turmeric (Turmeric (Curcuma Longa)) 500 Mg Cap 1 Cap PO QAM 06/24/16 Reported Flonase Allergy Relief Ch (Fluticasone Propionate (Nasal)) 50 Mcg/Act Spr 1 [place] TAMICA BID 06/24/16 Reported Coq10 (Coenzyme Q10 (Ubidecarenone)) 100 Mg Cap 1 Cap PO QAM 06/24/16 Reported Lisinopril 10 Mg Tab 10 Mg PO QAM 06/02/16 Reported Multivitamin Women 50+ (Multiple Vitamins W/ Minerals) 1 Tab Tab 1 Tab PO QAM 06/02/16 Reported Meclizine Hcl 25 Mg Tab 1 Tab PO TID PRN 10 07/31/15 Reported [place]-3 (Fish Oil) 1 Ea Cap 1 Cap PO AMPM 07/07/15 Reported Pantoprazole Sodium (Pantoprazole) 40 Mg Tab 40 Mg PO QAM 08/28/14 Rx Vitamin D (Cholecalciferol) 5,000 Unit Tab 5,000 Units PO DAILY 08/27/14 Reported Nitrostat (Nitroglycerin) 0.4 Mg Tab 0.4 Mg UT UD PRN 02/27/14 Reported Biotin 5000 (Biotin) 5 Mg Cap 1 Cap PO DAILY 09/06/13 Reported Cinnamon 500 Mg Tab 1,000 Mg PO DAILY 09/06/13 Reported Tenormin (Atenolol) 100 Mg Tab 100 Mg PO QAM 10/07/12 Reported Ecotrin Or Generic (Aspirin) 81 Mg Tab 81 Mg PO QAM 02/11/12 Reported Vital Signs Weight (Kilograms): 89.09 Height (Feet): 5 Height (Inches): 6.5 Date Time Temp Pulse Resp B/P Pulse Ox O2 Delivery O2 Flow Rate FiO2 06/30/16 08:05 36.7 53 20 149/100 97 Room Air Physical Exam General Appearance: WD/WN, no apparent distress Respiratory/Chest: Auscultation: breath sounds normal Cardiovascular: Heart Auscultation: RRR Abdomen: Bowel Sounds: normal Inspection & Palpation: soft, non-distended, no tenderness, guarding & rebound Assessment and Plan Assessment: 65 yo CF who presents for EGD secondary to RUQ abdominal pain, GERD, Hiatal hernia and Schatzki's Ring. Plan: Proceed with EGD.
--- NOTE | 2016-06-30 08:52 | GI REPORT ---
Procedure Date: 06/30/2016 8:26 AM Procedure: Upper GI endoscopy Indications: Abdominal pain in the right upper quadrant, Follow-up of gastro-esophageal reflux disease Medicines: Monitored Anesthesia Care Complications: No immediate complications. Estimated Blood Loss: Estimated blood loss: none. Procedure: Pre-Anesthesia Assessment: - Prior to the procedure, a History and Physical was performed, and patient medications and allergies were reviewed. The patient's tolerance of previous anesthesia was also reviewed. The risks and benefits of the procedure and the sedation options and risks were discussed with the patient. All questions were answered, and informed consent was obtained. Prior Anticoagulants: The patient has taken aspirin, last dose was 10 days prior to procedure. ASA Grade Assessment: III - A patient with severe systemic disease. After reviewing the risks and benefits, the patient was deemed in satisfactory condition to undergo the procedure. After obtaining informed consent, the endoscope was passed under direct vision. Throughout the procedure, the patient's blood pressure, pulse, and oxygen saturations were monitored continuously. The scope was introduced through the mouth, and advanced to the second part of duodenum. The upper GI endoscopy was accomplished without difficulty. The patient tolerated the procedure well. Findings: LA Grade A (one or more mucosal breaks less than 5 mm, not extending between tops of 2 mucosal folds) esophagitis with no bleeding was found. Biopsies were taken with a cold forceps for histology. A medium-sized hiatus hernia was present. The examined duodenum was normal. Impression: - LA Grade A reflux esophagitis. Biopsied. - Medium-sized hiatus hernia. - Normal examined duodenum. Recommendation: - Resume previous diet. - Use Protonix (pantoprazole) 40 mg PO BID. - Await pathology results. - Return to GI office as previously scheduled. Phil Art DO 06/30/2016 8:51:34 AM This report has been signed electronically. Note Initiated On: 06/30/2016 8:26 AM I attest to the content of the Intraoperative Record and orders documented therein, exceptions below
--- NOTE | 2016-06-30 08:57 | Discharge Instructions ---
Endoscopy Patient Instructions Date / Procedure(s) Performed June 30, 2016. EGD Allergy Information Coded Allergies: Clopidogrel (Verified Allergy, Unknown, BRUISING, 06/24/16) Codeine (Verified Allergy, Unknown, CODEINE DERIVATIVES-CODED AFTER TAKING , 06/24/16) Latex (Verified Allergy, Unknown, SWELLING, 06/24/16) Discharge Date / Findings June 30, 2016. Hiatal hernia Esophagitis s/p biopsies Medication Instructions Stopped Medication(s): ASA 1) Increase Pantoprazole to 40mg by mouth twice daily, 1/2 hour prior to breakfast and dinner. 2) Continue all other medications today as prescribed. Reported Home Medications Medications Dose Route/Sig Max Daily Dose Days Date Category Ativan (Lorazepam) 0.5 Mg Tab 0.5 Mg PO TID PRN 06/24/16 Reported [Stress Tab] 1 Tab PO QAM 06/24/16 Reported Turmeric (Turmeric (Curcuma Longa)) 500 Mg Cap 1 Cap PO QAM 06/24/16 Reported Flonase Allergy Relief Ch (Fluticasone Propionate (Nasal)) 50 Mcg/Act Spr 1 [place] TAMICA BID 06/24/16 Reported Coq10 (Coenzyme Q10 (Ubidecarenone)) 100 Mg Cap 1 Cap PO QAM 06/24/16 Reported Lisinopril 10 Mg Tab 10 Mg PO QAM 06/02/16 Reported Multivitamin Women 50+ (Multiple Vitamins W/ Minerals) 1 Tab Tab 1 Tab PO QAM 06/02/16 Reported Meclizine Hcl 25 Mg Tab 1 Tab PO TID PRN 10 07/31/15 Reported [place]-3 (Fish Oil) 1 Ea Cap 1 Cap PO AMPM 07/07/15 Reported Pantoprazole Sodium (Pantoprazole) 40 Mg Tab 40 Mg PO QAM 08/28/14 Rx Vitamin D (Cholecalciferol) 5,000 Unit Tab 5,000 Units PO DAILY 08/27/14 Reported Nitrostat (Nitroglycerin) 0.4 Mg Tab 0.4 Mg UT UD PRN 02/27/14 Reported Biotin 5000 (Biotin) 5 Mg Cap 1 Cap PO DAILY 09/06/13 Reported Cinnamon 500 Mg Tab 1,000 Mg PO DAILY 09/06/13 Reported Tenormin (Atenolol) 100 Mg Tab 100 Mg PO QAM 10/07/12 Reported Ecotrin Or Generic (Aspirin) 81 Mg Tab 81 Mg PO QAM 02/11/12 Reported Provider Instructions Activity Restrictions - No exercising or heavy lifting for 24 hours. - Do not drink alcohol the day of the procedure. - Do not drive a car or operate machinery until the day after the procedure. - Do not make any important decisions or sign important papers in 24 hours after the procedure. Following Day: - Return to full activity which may include returning to work/school. Diet Start your diet with liquids and light foods (jello, soup, juice, toast). Then eat your usual diet if not nauseated. Treatment For Common After Affects For mild abdominal pain, bloating, or excessive gas: - Rest - Eat lightly - Lie on right side Follow-Up Information Follow-up with Dr Louis as scheduled Anesthesia Information What You Should Know You have had a procedure that required some medicine to reduce anxiety and discomfort. This treatment is called moderate sedation. After receiving the treatment, you may be sleepy, but you will be able to breathe on your own. The effects of the treatment may last for several hours. Follow these instructions along with Activity/Diet recommendations noted above: * Do NOT do anything where dizziness or clumsiness would be dangerous. * Rest quietly at home today, then you can be up and about tomorrow. * Have a responsible person stay with you the rest of today. * You may have had an I.V. today. If so, you may take the dressing off later today. Recommendations Call your doctor if: * Trouble breathing * Continuous vomiting for more than 24 hours * Temperature above 101 degrees * Severe abdominal pain or bloating * Pain not relieved by pain medicine ordered * There is increased drainage or redness from any incision * A large amount of rectal bleeding greater than 2-3 tablespoons. (If you had a polyp/s removed or have hemorrhoids, a small amount of blood - from the rectum is to be expected.) * You have any unanswered questions or concerns. IN THE EVENT OF A SERIOUS EMERGENCY, GO TO THE NEAREST EMERGENCY ROOM Your discharge instructions were prepared by provider Phil Art. Patient Instructions Signature Page Daja Spivey Patient (or Guardian) Signature/Date: I have read and understand the instructions given to me by my caregivers. Caregiver/RN/Doctor Signature/Date: The above-named patient and/or guardian has received patient instructions on this date. + Original Patient Signature Page (only) stays with chart. Please make copy for patient.
--- NOTE | 2016-06-30 09:25 | Anesthesiology Progress Note ---
Anesthesia Post Op Note Date & Time June 30, 2016 at 09:25 Vital Signs Pain Intensity: 0 Vital Signs Past 12 Hours Date Time Temp Pulse Resp B/P Pulse Ox O2 Delivery O2 Flow Rate FiO2 06/30/16 09:12 55 18 143/72 97 Room Air 06/30/16 08:57 58 16 114/53 95 Room Air 06/30/16 08:05 36.7 53 20 149/100 97 Room Air Notes Mental Status: alert / awake / arousable, participated in evaluation Pt Amnestic to Procedure: Yes Nausea / Vomiting: adequately controlled Pain: adequately controlled Airway Patency, RR, SpO2: stable & adequate BP & HR: stable & adequate Hydration State: stable & adequate Anesthetic Complications: no major complications apparent
[2016-06-30 09:27] VITALS: BP 159/86; PULSE 55; O2SAT 96
== END | disposition home or self-care (01) ==
LOC: C.GI 07:39
PROVIDERS: ATTEND Internal Medicine
DX: R10.11 Right upper quadrant pain (principal); K44.9 Diaphragmatic hernia without obstruction or gangrene; K21.0 Gastro-esophageal reflux disease with esophagitis; Z95.5 Presence of coronary angioplasty implant and graft; M19.90 Unspecified osteoarthritis, unspecified site; I25.10 Atherosclerotic heart disease of native coronary artery without angina pectoris; F41.9 Anxiety disorder, unspecified; E78.00 Pure hypercholesterolemia, unspecified; I10 Essential (primary) hypertension; I25.2 Old myocardial infarction; Z96.649 Presence of unspecified artificial hip joint; Z83.71 Family history of colonic polyps; Z87.891 Personal history of nicotine dependence; Z79.82 Long term (current) use of aspirin

== ENCOUNTER → 2016-08-05 | Outpatient (CLI) | payer OTHER ==
[~2016-08-05] MED LIST changes: -LIDOCAINE HCL 2% 2 ML VIAL (20MG/ML) ONE; -ONDANSETRON INJ 2 MG/ML 2 ML VIAL ONE; -PROPOFOL IV EMULSION 10 MG/ML 20 ML VIAL IV ONE; -SODIUM CHLORIDE 0.9% 500ML 500 ML IV ONE
--- NOTE | 2016-08-05 14:31 | DIAGNOSTIC IMAGING REPORT ---
THYROID ULTRASOUND HISTORY: Nodule E04.1 Solitary thyroid [id number] COMPARISON: 12/06/2014 FINDINGS: Right lobe: Maximum dimension 5.2 cm. Multiple cystic as well as nodular-type densities. Largest measures 1.1 cm at the lower pole. The largest partially cystic nodule measuring up to 2 cm. This is unchanged. Left lobe: Maximum dimension 4.2 cm. Heterogeneous internal architecture. Several nodules and and/or cystic nodules measuring up to 8 mm. Isthmus: No nodules. IMPRESSION: Multicystic multinodular thyroid. Essentially unchanged compared to the prior study. Electronically signed by: Flip Beckwith M.D. 08/05/2016 2:29 PM Dictated Date/Time: 08/05/2016 2:24 PM
== END | disposition home or self-care (01) ==
LOC: C.ULTR 13:50
PROVIDERS: ATTEND Nurse Practitioner Adult Health
DX: E04.1 Nontoxic single thyroid nodule (principal)

== ENCOUNTER 2016-08-31 06:48 | Day surgery (SDC) | payer OTHER ==
[2016-08-20 09:10] VITALS: BMI 31.0
--- NOTE | 2016-08-20 09:38 | PAT Medication Instructions ---
Service Date Aug 20, 2016. Current Home Medication List Albuterol (Ventolin Hfa), 1-2 PUFFS INH BID Aspirin Enteric Coated (Ecotrin Or Generic), 81 MG PO QAM Atenolol (Tenormin), 100 MG PO QAM Biotin (Biotin), 1 MG PO QAM Cholecalciferol (Vitamin D), 5,000 UNITS PO QAM Cinnamon (Cinnamon), 1,000 MG PO QAM Clonidine Hcl (Catapres), 1 TAB PO Q8-12H Cyanocobalamin (Vitamin B12 100 Mcg), 100 MCG PO QAM Fluticasone Propionate (Nasal) (Flonase Allergy Relief Ch), 1 SPRAY [place] BID Krill Oil (Krill Oil [place]odeo-3), 1 TAB PO QAM Lisinopril (Lisinopril), 10 MG PO QAM Lorazepam (Ativan), 0.5 MG PO TID PRN for Anxiety Meclizine Hcl (Meclizine Hcl), 1 TAB PO TID PRN for Dizziness or Vertigo Multiple Vitamins W/ Minerals (Multivitamin Women 50+), 1 TAB PO QAM Nitroglycerin (Nitrostat), 0.4 MG UT UD PRN for Chest Pain Pantoprazole (Protonix), 40 MG PO BID Turmeric (Curcuma Longa) (Turmeric), 1 CAP PO QAM [Coq10], 25 MG PO QAM [Stress Tab], 1 TAB PO QAM Medication Instructions For Your Scheduled Surgery - Continue as directed: Nitroglycerin (Nitrostat), 0.4 MG UT UD PRN for Chest Pain - Hold the following medications as of 08/21/16: Biotin (Biotin), 1 MG PO QAM Krill Oil (Krill Oil Rodeo-3), 1 TAB PO QAM Turmeric (Curcuma Longa) (Turmeric), 1 CAP PO QAM [Coq10], 25 MG PO QAM [Stress Tab], 1 TAB PO QAM Cinnamon (Cinnamon), 1,000 MG PO QAM - Hold the following medications the morning of surgery: Lisinopril (Lisinopril), 10 MG PO QAM Cholecalciferol (Vitamin D), 5,000 UNITS PO QAM Multiple Vitamins W/ Minerals (Multivitamin Women 50+), 1 TAB PO QAM Cyanocobalamin (Vitamin B12 100 Mcg), 100 MCG PO QAM - Take the following medications the morning of surgery with a sip of water OTHERWISE NOTHING TO EAT OR DRINK AFTER MIDNIGHT: Fluticasone Propionate (Nasal) (Flonase Allergy Relief Ch), 1 SPRAY [place]AM[place] BID Albuterol (Ventolin Hfa), 1-2 PUFFS INH BID (use if needed; BRING TO HOSPITAL) Atenolol (Tenormin), 100 MG PO QAM Clonidine Hcl (Catapres), 1 TAB PO Q8-12H Pantoprazole (Protonix), 40 MG PO BID Lorazepam (Ativan), 0.5 MG PO TID PRN for Anxiety Meclizine Hcl (Meclizine Hcl), 1 TAB PO TID PRN for Dizziness or Vertigo Aspirin Enteric Coated (Ecotrin Or Generic), 81 MG PO QAM (okay to continue per surgeon) - Take the following medications as scheduled the night before surgery: Fluticasone Propionate (Nasal) (Flonase Allergy Relief Ch), 1 SPRAY [place]AM[place] BID Albuterol (Ventolin Hfa), 1-2 PUFFS INH BID Clonidine Hcl (Catapres), 1 TAB PO Q8-12H Pantoprazole (Protonix), 40 MG PO BID Lorazepam (Ativan), 0.5 MG PO TID PRN for Anxiety Meclizine Hcl (Meclizine Hcl), 1 TAB PO TID PRN for Dizziness or Vertigo If you have any questions please call us at [phone] or [phone] or [phone]
[2016-08-20 10:06] LABS: BASO % 0.5 %; BASO ABS # 0.03 K/uL (0-0.2); COMPLETE YES; EOS % 0.7 %; HEMATOCRIT 43.8 % (37-47); IG% 0.2 %; LYMPH % 32.1 %; LYMPH ABS # 1.95 K/uL (1.2-3.4); MEAN CELL VOLUME 88.8 fL (80-100); MEAN CORPUSCULAR HEMOGLOBIN 30.2 pg (25-34); MEAN PLATELET VOLUME 9.9 fL (7.4-10.4); MONO % 6.3 %; NEUT % 60.2 %; PLATELET COUNT 261 K/uL (130-400); RED BLOOD COUNT 4.93 M/uL (4.2-5.4); WHITE BLOOD COUNT 6.07 K/uL (4.8-10.8)
[2016-08-20 11:08] LABS: BUN/CREATININE RATIO 18.1 (10-20); CREATININE 0.77 mg/dl (0.60-1.20); POTASSIUM 4.6 mmol/L (3.5-5.1)
[~2016-08-31] VITALS: Ht 167.6 cm; Wt 88.6 kg
[~2016-08-31 06:48] MED LIST changes: -BIOTCAP2 PO; -COEN100C7 PO; +LACTATED RINGER'S 1000ML 1,000 ML IV SCH; -OMEG10007 PO; -PRT40 PO; +SCOPOLAMINE 1.5 MG TDSY TD SCH; -TRAM-453 PO
[2016-08-31] MEDS ORDERED: MIDAZOLAM HCL 1 MG/ML 2ML VIAL ONE (07:01)
[2016-08-31] MEDS ORDERED: FENTANYL CITRATE INJ 50 MCG/1 ML 2 ML VIAL ONE ×2 (07:01→09:10)
[2016-08-31 07:10] VITALS: BP 166/87; PULSE 59; TEMP 36.7; O2SAT 96; Ht 167.6 cm; Wt 88.6 kg
[2016-08-31] MEDS ORDERED: LIDOCAINE/EPINEPHRINE 1% 20 ML VIAL ONE (07:15)
[2016-08-31] MEDS ORDERED: CONRAY 60% 50 ML VIAL ONE (07:15)
[2016-08-31] MEDS ORDERED: ATROPINE SULFATE 0.1 MG/ML 5ML SYR IV PRN (07:30)
[2016-08-31] MEDS ORDERED: HYDROmorphone INJ 1 MG/ML SYR IV PRN (07:30)
[2016-08-31] MEDS ORDERED: EpHEDrine SULFATE INJ 50 MG/ML AMP IV PRN (07:30)
[2016-08-31] MEDS ORDERED: ONDANSETRON INJ 2 MG/ML 2 ML VIAL IV PRN ×2 (07:30→09:45)
[2016-08-31] MEDS ORDERED: FENTANYL CITRATE INJ 50 MCG/1 ML 2 ML VIAL IV PRN (07:30)
[2016-08-31] MEDS ORDERED: ACETAMINOPHEN 500 MG TAB PO ONE (07:57)
[2016-08-31] MEDS ORDERED: ACETAMINOPHEN 500 MG TAB PO STA (07:58)
[2016-08-31] MEDS ORDERED: MoRPHine SULFATE 10 MG/ML CARP/VIAL IV PRN (08:00)
--- NOTE | 2016-08-31 08:05 | History & Physical Bridge Note ---
H&P Re-Evaluation Bridge Note: I have examined the patient, reviewed the History & Physical and in the interval since the performance of the History & Physical I have noted the following changes of clinical significance: No changes noted son at bedside
[2016-08-31] MEDS ORDERED: PROPOFOL IV EMULSION 10 MG/ML 20 ML VIAL IV ONE (09:11)
[2016-08-31] MEDS ORDERED: GLYCOPYRROLATE INJ 0.2 MG/ML VIAL ONE ×2 (09:11→09:23)
[2016-08-31] MEDS ORDERED: LIDOCAINE HCL 2% 2 ML VIAL (20MG/ML) ONE (09:12)
[2016-08-31] MEDS ORDERED: DEXAMETHASONE SOD INJ 4 MG/ML VIAL ONE (09:12)
[2016-08-31] MEDS ORDERED: EpHEDrine SULFATE INJ 50 MG/ML AMP ONE (09:12)
[2016-08-31] MEDS ORDERED: ROCURONIUM BROMIDE 10 MG/ML 5 ML VIAL ONE (09:12)
[2016-08-31] MEDS ORDERED: ONDANSETRON INJ 2 MG/ML 2 ML VIAL ONE (09:12)
[2016-08-31] MEDS ORDERED: NEOSTIGMINE METHYLSULFATE 5 MG/5 ML SYR ONE (09:13)
--- NOTE | 2016-08-31 09:17 | DIAGNOSTIC IMAGING REPORT ---
CHOLANGIOGRAM O.R. CLINICAL HISTORY: 65 years-old Female presenting with LAP ALEJANDRO. TECHNIQUE: Fluoroscopy was provided for an intraoperative cholangiogram status post cholecystectomy. Contrast was injected through the cystic duct remnant. COMPARISON: Correlation made to nuclear medicine hepatobiliary scan from 06/18/[address] from 07/21/2015. FLUOROSCOPY TIME: 2.8 seconds. FINDINGS: The common bile duct is normal in course and caliber. There are no filling defects seen within the common bile duct to suggest a retained stone. Apparent filling defect within the cystic duct may represent a gallstone. The gallbladder is reportedly absent. Contrast extends into the small bowel. Conventional intrahepatic biliary bifurcation. There is no intrahepatic bile duct dilatation. IMPRESSION: Fluoroscopy provided for an intraoperative cholangiogram status post cholecystectomy. No filling defects within the common bile duct. Electronically signed by: Heber Marin M.D. 08/31/2016 9:16 AM Dictated Date/Time: 08/31/2016 9:14 AM
[2016-08-31] MEDS ORDERED: LACTATED RINGER'S 1000ML 1,000 ML IV SCH (09:36)
--- NOTE | 2016-08-31 09:36 | [facility] Operative Report ---
Operative Report Operative Date Aug 31, 2016. Pre-Operative Diagnosis Cholelithiasis Post-Operative Diagnosis Same as preoperative Procedure(s) Performed Laparoscopic Cholecystectomy with Cholangiogram Surgeon Dr. Jake Broosk Dental Resident Surgeon(s) Leif Wilson PA-C Estimated Blood Loss 5ML Findings chronic cholecystitis cholelithiasis Specimens A.) Gallbladder and contents Anesthesia >5% marcaine preemptive trocar sites Disposition Recovery Room / PACU Indications symptomatic chronic cholecystitis cholelithiasis Description of Procedure general endotracheal anesthesia sterile prep Veres needle supraumbilically followed by 5 mm trocar also 5 mm epigastric and 2 5mm subcostal with preemptive local, triangle calot dissected 2 structure going into gallbladder 4 ureteral cath transversing abd wall in 14 angio cath positioned in cystic duct cholangiogram obtained no filling defect, cystic duct doubly clipped and divided cystic artery similar clipped and divided(used 1 cm clip replacing 5 mm trocar epigastric area with 11 since 5mm clip agricultural plow operator x3 failed to work), gallbladder removed antigrade fashion with electric cautery leaving posterior peritoneum placed in endo pouch and removed intact, hemostasis checked all port sites and liver bed. wound closed with 0 vycryl epigastric area and 4-0 monocryl sub cut ss applied procedure tolerated well ebl 5-10cc spec gallbladder and contents to path I attest to the content of the Intraoperative Record and any orders documented therein. Any exceptions are noted below.
[2016-08-31] MEDS ORDERED: TRAM-453 PO (09:39)
--- NOTE | 2016-08-31 09:40 | Discharge Instructions ---
Discharge Instructions Date of Service Aug 31, 2016. Visit Reason for Visit: Cholelithiasis Discharge Discharge Diagnosis / Problem: laparoscopic cholecystectomy Discharge Goals Goal(s): Decrease discomfort Activity Recommendations Activity Limitations: as noted below Lifting Limitations: no more than 10 pounds Shower/Bathe: tomorrow Driving or Machine Use: resume 3 days after discharge Anesthesia . Post Anesthesia Instructions: If you have had General Anesthesia or IV Sedation: * Do not drive today. * Resume driving when surgeon permits. * Do not make important decisions or sign legal documents today. * Call surgeon for: 1. Temperature elevations greater than 101 degrees F. 2. Uncontrollable pain. 3. Excessive bleeding. 4. Persistent nausea and vomiting. 5. Medication intolerance (nausea, vomiting or rash). * For nausea and vomiting use only clear liquids such as: tea, soda, bouillon until nausea subsides, then gradually increase diet as tolerated. * If you have any concerns or questions, call your surgeon's office. If physician is unavailable and it is an emergency, call 911 or go to the nearest emergency room. . Instructions / Follow-Up Instructions / Follow-Up Dr. Brooks in 1 week, call [phone] for any questions or for an appt if you do not already have one Diet Recommendations Recommended Home Diet: no limitations Procedures Procedures Performed: Laparoscopic Cholecystectomy with Cholangiogram Pending Studies Studies pending at discharge: no Medical Emergencies . Who to Call and When: Medical Emergencies: If at any time you feel your situation is an emergency, please call 911 immediately. . Non-Emergent Contact Non-Emergency issues call your: Surgeon Call Non-Emergent contact if: you have a fever, temperature is above 101.5, your pain is not controlled, wound has increased redness, you have any medication questions . . "Provider Documentation" section prepared by Leif Wilson. . [place] Drug Monitoring Program Search Results: no issues identified
[2016-08-31] MEDS ORDERED: DiphenhydrAMINE HCL 50 MG/ML VIAL ONE (09:45)
[2016-08-31] MEDS ORDERED: TRAMADOL HCL 50 MG TAB PO PRN (09:45)
[2016-08-31] MEDS ORDERED: NURSING VERBAL MED ORDER ONE (10:15)
[2016-08-31] MEDS ORDERED: KETOROLAC TROMETHAMINE 30 MG/ML VIAL ONE (10:16)
[2016-08-31 10:45] VITALS: BP 140/68; PULSE 50; TEMP 36.8; O2SAT 95
[2016-08-31 11:15] VITALS: BP 139/73; PULSE 61; TEMP 36.8; O2SAT 93
--- NOTE | 2016-08-31 11:19 | Anesthesiology Progress Note ---
Anesthesia Post Op Note Date & Time Aug 31, 2016 at 11:18 Vital Signs Pain Intensity: 0 Vital Signs Past 12 Hours Date Time Temp Pulse Resp B/P (MAP) Pulse Ox O2 Delivery O2 Flow Rate FiO2 08/31/16 10:45 36.8 50 18 140/68 95 Room Air 08/31/16 10:35 36.2 08/31/16 10:25 36.2 53 18 133/71 92 Room Air 08/31/16 10:15 55 18 130/85 92 Room Air 08/31/16 10:05 62 18 135/73 100 Oxymask 10 08/31/16 09:55 65 18 144/83 100 Oxymask 10 08/31/16 09:49 36.1 69 18 143/81 98 Oxymask 10 08/31/16 07:10 36.7 59 18 166/87 (113) 96 Room Air Notes Mental Status: alert / awake / arousable, participated in evaluation Pt Amnestic to Procedure: Yes Nausea / Vomiting: adequately controlled Pain: adequately controlled Airway Patency, RR, SpO2: stable & adequate BP & HR: stable & adequate Hydration State: stable & adequate Anesthetic Complications: no major complications apparent
[2016-08-31 11:45] VITALS: BP 138/76; PULSE 61; TEMP 36.8; O2SAT 93
[2016-08-31] MEDS ORDERED: CHECK SCOPOLAMINE PATCH PLACEMENT SCH (16:00)
== END 2016-08-31 12:30 | disposition home or self-care (01) ==
LOC: C.ACU 06:48
PROVIDERS: ATTEND Surgery
DX: K80.12 Calculus of gallbladder with acute and chronic cholecystitis without obstruction (principal); K21.9 Gastro-esophageal reflux disease without esophagitis; F41.9 Anxiety disorder, unspecified; I25.10 Atherosclerotic heart disease of native coronary artery without angina pectoris; H81.10 Benign paroxysmal vertigo, unspecified ear; J43.9 Emphysema, unspecified; I10 Essential (primary) hypertension; E78.00 Pure hypercholesterolemia, unspecified; K22.2 Esophageal obstruction; K44.9 Diaphragmatic hernia without obstruction or gangrene; I25.2 Old myocardial infarction; E04.2 Nontoxic multinodular goiter; E55.9 Vitamin D deficiency, unspecified; Z87.891 Personal history of nicotine dependence; Z79.82 Long term (current) use of aspirin; Z79.899 Other long term (current) drug therapy

== ENCOUNTER → 2016-11-29 | Outpatient (CLI) | payer OTHER ==
[~2016-11-29] MED LIST changes: -LACTATED RINGER'S 1000ML 1,000 ML IV SCH; -SCOPOLAMINE 1.5 MG TDSY TD SCH
--- NOTE | 2016-11-29 13:26 | DIAGNOSTIC IMAGING REPORT ---
LEFT HAND 3 VIEWS CLINICAL HISTORY: Finger swelling. FINDINGS: 3 views of left hand are compared to study dated 04/19/2013. The skeletal structures are osteopenic. No fracture is seen. Moderate to advanced osteoarthritic change is seen at the first carpometacarpal joint where there is bony sclerosis, overgrowth, and mild subluxation. Mild osteoarthritic change is seen at the first metacarpophalangeal joint. Osteoarthritic change is seen in the interphalangeal joints, distal greater than proximal. Mild erosion is seen at the second, third, and fifth distal interphalangeal joints as well as the fourth proximal interphalangeal joint. A large bone island is present in the fifth metacarpal head. Soft tissue swelling is present in the fingers, greatest in the fourth digit around the proximal interphalangeal joint. IMPRESSION: 1. No acute bony abnormality is seen in the left hand. 2. Osteopenia with osteoarthritic and erosive osteoarthritic change as above with associated soft tissue swelling. Electronically signed by: Josue Corral M.D. 11/29/2016 1:25 PM Dictated Date/Time: 11/29/2016 1:22 PM
== END | disposition home or self-care (01) ==
LOC: C.RAD1850 13:09
PROVIDERS: ATTEND Internal Medicine
DX: M79.89 Other specified soft tissue disorders (principal)

== ENCOUNTER → 2016-12-03 | Outpatient (CLI) | payer OTHER ==
[2016-12-03 18:22] LABS: C-REACTIVE PROTEIN 0.83 mg/dl (0-0.29); RHEUMATOID FACTOR < 10.0 U/mL (0-15)
== END | disposition home or self-care (01) ==
LOC: C.LAB1850 17:00
PROVIDERS: ATTEND Internal Medicine
DX: M15.4 Erosive (osteo)arthritis (principal)

== ENCOUNTER → 2016-12-06 | Outpatient (CLI) | payer OTHER ==
[2016-12-06 10:12] LABS: TOTAL IRON BINDING CAPACITY 367 mcg/dl (250-450)
[2016-12-06 10:24] LABS: URINE APPEARANCE CLEAR (CLEAR); URINE BILIRUBIN NEG (NEG); URINE COLOR YELLOW; URINE EPITHELIAL CELL AUTO >30 /lpf (0-5); URINE NITRITE NEG (NEG); URINE PH 6.5 (4.5-7.5); URINE SPECIFIC GRAVITY 1.012 (1.000-1.030); UROBILINOGEN NEG (NEG)
[2016-12-06 10:25] LABS: MANUAL MICROSCOPIC REQUIRED? NO; REVIEW REQ? NO
[2016-12-11 11:05] LABS: ANTI-CENTROMERE AB <1.0 NEG AI (<1.0 NEG); ANTI-SS-A <1.0 NEG AI (<1.0 NEG); ANTI-SS-B <1.0 NEG AI (<1.0 NEG); DNA ds CRITHIDIA NEGATIVE (NEGATIVE); Sm Antibody <1.0 NEG AI (<1.0 NEG)
== END | disposition home or self-care (01) ==
LOC: C.LAB1850 08:46
PROVIDERS: ATTEND Internal Medicine Rheumatology
DX: M79.89 Other specified soft tissue disorders (principal); M15.4 Erosive (osteo)arthritis; R70.0 Elevated erythrocyte sedimentation rate; M25.449 Effusion, unspecified hand

== ENCOUNTER → 2016-12-28 | Outpatient (CLI) | payer OTHER ==
--- NOTE | 2016-12-28 11:07 | DIAGNOSTIC IMAGING REPORT ---
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 COMPARISON: None. DISCUSSION: There is a small joint effusion. There are moderately advanced osteoarthritic changes most pronounced involving the medial joint compartment. No acute fractures are visualized. IMPRESSION: Moderately advanced osteoarthritic changes, most pronounced involving the medial joint compartment. No acute fractures. Small joint effusion. Electronically signed by: Kaden Villela M.D. 12/28/2016 11:06 AM Dictated Date/Time: 12/28/2016 11:04 AM
== END | disposition home or self-care (01) ==
LOC: C.RAD1850 10:50
PROVIDERS: ATTEND Internal Medicine Rheumatology
DX: M25.469 Effusion, unspecified knee (principal); M71.20 Synovial cyst of popliteal space [Baker], unspecified knee

== ENCOUNTER → 2017-02-09 | Outpatient (CLI) | payer OTHER ==
[~2017-02-09] MED LIST changes: +ACET-1222 PO; +ASPI-319 PO; -ASPI81TA21 PO; +ATEN-175 PO; +BACL10TA PO; +CEPH500C PO; +COEN50CA2 PO; +COEN50CA22 PO; +CYM20 PO; +DICLOFENAC GEL TOP; +FENO48TA9 PO; +KRIL1000 PO; +LISI20TA3 PO; +NYST100033 TD; +ONDA4TAB46 PO; +PHEN-775 PO
--- NOTE | 2017-02-09 07:55 | DIAGNOSTIC IMAGING REPORT ---
R LOWER EXT JOINT WITHOUT CLINICAL HISTORY: 66 years-old Female presenting with M25.469 Knee [id number], right knee pain for several years. TECHNIQUE: Multisequence, multiplanar MR imaging of the right knee was performed without the use of intravenous contrast. IV contrast: None. COMPARISON: Plain radiographs of the right knee from 12/28/2016. FINDINGS: Localizer images: Unremarkable. Cystic change noted in the intercondylar notch of the tibial plateau. Subchondral cystic change also noted in the lateral patellar facet. There is full-thickness cartilage fissuring and irregularity of the lateral patellar facet. Near full-thickness articular cartilage thinning of the lateral trochlea. The medial patellar facet and median prominence of the patella also demonstrate near full-thickness cartilage thinning and irregularity. The medial trochlea is relatively preserved. Over 50% cartilage thinning of the posterior aspect of the mid weightbearing portion of the medial femoral condyle. Irregularity of the anterior weightbearing portion of the medial femoral condyle suggesting grade 1 cartilage injury. Over 50% cartilage thinning of the medial tibial plateau centrally. This results in joint space narrowing medially. Prominent osteophytosis of the femoral condyles, medial greater than lateral, as well as the medial tibial plateau. Subchondral sclerosis noted in the medial tibial plateau. Irregularity, increased signal intensity, and a blunted appearance of the posterior horn of the medial meniscus, which is slightly extruded laterally. This likely represents a complex and/or degenerative type tear. Increased signal intensity of the free edge of the body of the lateral meniscus as well as increased intrasubstance signal intensity in the anterior horn. A degenerative type tear is suspected in the body. Thickening, increased signal intensity, and wavy appearance of the anterior cruciate ligament most consistent with mucoid degeneration. Posterior cruciate ligament intact. Slight thickening of the origin of the medial cruciate ligament without evidence of a tear. Lateral collateral ligament intact, including the biceps femoris tendon, fibular collateral ligament, popliteal tendon, and iliotibial band. Quadriceps and patellar tendons intact. Nonspecific infrapatellar subcutaneous edema. Parameniscal cyst noted anteriorly in the intercondylar region. Small knee joint effusion with evidence of synovitis and/or debris. No popliteal cyst. Normal muscle bulk and muscle signal intensity. IMPRESSION: 1. Tricompartmental degenerative change greatest in the medial compartment, where there is significant cartilage loss, osteophytosis, subchondral sclerosis, and joint space narrowing as detailed above. 2. Complex and are degenerative type tear of the posterior horn of the medial meniscus. 3. Degenerative type tear of the body of the lateral meniscus suspected. 4. Mucoid degeneration of the anterior cruciate ligament. 5. Small knee joint effusion with evidence of synovitis and/or intra-articular debris. Electronically signed by: Heber Marin M.D. 02/09/2017 7:54 AM Dictated Date/Time: 02/09/2017 7:42 AM
== END | disposition home or self-care (01) ==
LOC: C.MRI 06:48
PROVIDERS: ATTEND Internal Medicine Rheumatology
DX: M23.221 Derangement of posterior horn of medial meniscus due to old tear or injury, right knee (principal); M25.761 Osteophyte, right knee; M17.11 Unilateral primary osteoarthritis, right knee; M85.88 Other specified disorders of bone density and structure, other site

== ENCOUNTER → 2017-03-10 | Outpatient (CLI) | payer OTHER ==
[~2017-03-10] MED LIST changes: -ACET-1222 PO; -ASPI-319 PO; +ASPI81TA21 PO; -ATEN-175 PO; -BACL10TA PO; -CEPH500C PO; -COEN50CA2 PO; -COEN50CA22 PO; -CYM20 PO; -DICLOFENAC GEL TOP; -FENO48TA9 PO; -KRIL1000 PO; -LISI20TA3 PO; -NYST100033 TD; -ONDA4TAB46 PO; -PHEN-775 PO
[2017-03-10 10:04] LABS: ALBUMIN 3.7 gm/dl (3.4-5.0); ALT/SGPT 25 U/L (12-78); AST/SGOT 17 U/L (15-37); BLOOD UREA NITROGEN 18 mg/dl (7-18); CALCIUM 8.7 mg/dl (8.5-10.1); CARBON DIOXIDE 27 mmol/L (21-32); CREATININE 1.06 mg/dl (0.60-1.20); GLUCOSE 118 mg/dl (70-99); POTASSIUM 4.4 mmol/L (3.5-5.1); SODIUM 137 mmol/L (136-145)
[2017-03-10 10:13] LABS: ALKALINE PHOSPHATASE 75 U/L (45-117); CHOLESTEROL 306 mg/dl (0-200); LDL CHOLESTEROL CALCULATED 200 mg/dl; TOTAL PROTEIN 7.7 gm/dl (6.4-8.2)
== END | disposition home or self-care (01) ==
LOC: C.LAB1850 08:46
PROVIDERS: ATTEND Internal Medicine
DX: I10 Essential (primary) hypertension (principal); E04.1 Nontoxic single thyroid nodule; E55.9 Vitamin D deficiency, unspecified

== ENCOUNTER 2017-03-21 00:24 | Emergency (ER) | payer OTHER ==
[~2017-03-21] VITALS: Ht 168.9 cm; Wt 89.8 kg
[2017-03-21 00:26] VITALS: TEMP 36.7; Ht 168.9 cm; Wt 89.8 kg
[2017-03-21 01:12] LABS: BASO % 0.5 %; BASO ABS # 0.04 K/uL (0-0.2); EOS % 1.3 %; EOS ABS # 0.11 K/uL (0-0.5); HEMATOCRIT 40.9 % (37-47); HEMOGLOBIN 14.3 g/dL (12.0-16.0); IG# 0.01 K/uL (0.00-0.02); LYMPH % 33.9 %; LYMPH ABS # 2.98 K/uL (1.2-3.4); MEAN CELL VOLUME 88.7 fL (80-100); MEAN PLATELET VOLUME 9.7 fL (7.4-10.4); MONO % 6.9 %; MONO ABS # 0.61 K/uL (0.11-0.59); NEUT % 57.3 %; NEUT ABS # 5.05 K/uL (1.4-6.5); PLATELET COUNT 275 K/uL (130-400); RED CELL DISTRIBUTION WIDTH CV 13.1 % (11.5-14.5); RED CELL DISTRIBUTION WIDTH SD 41.9 fL (36.4-46.3)
[2017-03-21] MEDS ORDERED: ACETAMINOPHEN IV 650 MG in EMPTY BAG 0 ML IV STA (01:31)
[2017-03-21] MEDS ORDERED: SODIUM CHLORIDE 0.9% 1000ML 1,000 ML IV STA (01:31)
[2017-03-21] MEDS ORDERED: ONDANSETRON INJ 2 MG/ML 2 ML VIAL IV STA (01:31)
[2017-03-21] MEDS ORDERED: OPTIRAY 320 IV PRN (01:45)
[2017-03-21 01:51] LABS: ALBUMIN 3.6 gm/dl (3.4-5.0); ALKALINE PHOSPHATASE 73 U/L (45-117); ALT/SGPT 22 U/L (12-78); AST/SGOT 18 U/L (15-37); BLOOD UREA NITROGEN 15 mg/dl (7-18); CALCIUM 8.7 mg/dl (8.5-10.1); CARBON DIOXIDE 24 mmol/L (21-32); CREATININE 0.78 mg/dl (0.60-1.20); GLUCOSE 108 mg/dl (70-99); LIPASE 278 U/L (73-393); POTASSIUM 4.1 mmol/L (3.5-5.1); SODIUM 138 mmol/L (136-145); TOTAL PROTEIN 7.5 gm/dl (6.4-8.2)
[2017-03-21] MEDS ORDERED: COEN50CA2 PO (01:59)
--- NOTE | 2017-03-21 05:10 | EMERGENCY ROOM VISIT NOTE ---
History Report prepared by Bonita: Graham Roberts Under the Supervision of: Dr. Julia Guerra D.O. First contact with patient: 01:20 Chief Complaint: ABDOMINAL PAIN Stated Complaint: PAIN IN BACK/RT SIDE OF ABD,DRY THROAT,HIGH BP Nursing Triage Summary: c/o right back pain that radiates into right upper abd. pt reports that she had her gall bladder out 6 months ago and symptoms feel just like a gallbladder attack. pt concerned that she is having a reaction to fenofibrate which she started 5 days ago. and her abdominal pains and nausea started approx 3-4 days ago. pt states she has been watching her diet and doesn't eat things she shouldn't except last tuesday she ate some chips but feels the symptoms wouldn't be persisting. pt states "i just feel awful". pt took 2 tylenol arthritis this evening. pt researched symptoms of fenofibrate and states she has had itching in her abdomen, indigestion, and right sided abdominal pain that radiates to her back, all of which are listed in the reaction section of the the drug info sheet. History of Present Illness The patient is a 66 year old female who presents to the Emergency Room with complaints of worsening RUQ abdominal pain beginning three days ago. Her pain wraps around to her back. Her pain was initially intermittent, but has become constant. The patient's pain is improved with rest. Her pain is worsened with eating any food. She also complains of nausea and dizziness. The patient has a history of cholecystectomy occurring six months ago. She states that she experienced similar pain prior to her surgery. She has a history of similar pain associated with eating, but states that it always resolves shortly. The patient denies vomiting, diarrhea, urinary symptoms, fevers, chills, or cough. She has a history of duodenal ulcers, H. pylori and GERD. She has been able to pass gas today. The patient recently began taking medication for high cholesterol. Source of History: patient Onset: Three days ago Position: abdomen (RUQ) Timing: worsening Modifying Factors (Worsening): eating (any food) Modifying Factors (Relieving): rest Associated Symptoms: + nausea, + back pain, No fevers, No chills, No cough, No vomiting, No diarrhea, No urinary symptoms Note: Additional symptoms: dizziness. Review of Systems See HPI for pertinent positives & negatives. A total of 10 systems reviewed and were otherwise negative. Past Medical & Surgical Medical Problems: (1) Ac Myocard Infarct,Oth Inferior Wall,Init Epis Car (2) Coronary Atherosclerosis Of [place] Coronary Vessel (3) Diaphragmatic Hernia (4) Hypertension Nos Family History Diabetes mellitus Heart disease Hypertension Social History Smoking Status: Former Smoker Alcohol Use: none Drug Use: none Marital Status: single Housing Status: lives alone Occupation Status: employed Current/Historical Medications Scheduled Aspirin Enteric Coated (Ecotrin Or Generic), 81 MG PO QAM Atenolol (Tenormin), 100 MG PO QAM Biotin (Biotin), 1 MG PO QAM Cholecalciferol (Vitamin D), 5,000 UNITS PO QAM Cinnamon (Cinnamon), 1,000 MG PO QAM Coenzyme Q10 (Ubidecarenone) (Co Q-10), 50 MG PO QAM Cyanocobalamin (Vitamin B12 100 Mcg), 100 MCG PO QAM Fluticasone Propionate (Nasal) (Flonase Allergy Relief Ch), 1 SPRAY TAMICA DAILY Krill Oil (Krill Oil [place]-3), 1 TAB PO QAM Lisinopril (Lisinopril), 10 MG PO HS Multiple Vitamins W/ Minerals (Multivitamin Women 50+), 1 TAB PO QAM Pantoprazole (Protonix), 40 MG PO DAILY Scheduled PRN Albuterol (Ventolin Hfa), 1-2 PUFFS INH BID PRN for SOB/Wheezing Clonidine Hcl (Catapres), 1 TAB PO Q8-12H PRN for Dizziness or Vertigo Lorazepam (Ativan), 0.5 MG PO TID PRN for Anxiety Meclizine Hcl (Meclizine Hcl), 1 TAB PO TID PRN for Dizziness or Vertigo Nitroglycerin (Nitrostat), 0.4 MG UT UD PRN for Chest Pain Allergies Coded Allergies: Clopidogrel (Verified Allergy, Unknown, BRUISING, 03/21/17) Codeine (Verified Allergy, Unknown, CODEINE DERIVATIVES-CODED AFTER TAKING -VERY LOW BP,PASSING, 03/21/17) OUT Latex (Verified Allergy, Unknown, SWELLING AT SITE OF CONTACT, 03/21/17) SOB NAUSEA IN ROOM PAINTING WITH LATEX PAINT AND BLOWING UP BALLOONS Statins (Verified Allergy, Unknown, MUSCLE ACHES, 2/5/18) Physical Exam Vital Signs Date Time Temp Pulse Resp B/P (MAP) Pulse Ox O2 Delivery O2 Flow Rate FiO2 03/21/17 05:46 59 20 168/98 96 03/21/17 05:01 57 20 175/90 96 Room Air 03/21/17 03:01 57 17 152/83 96 Room Air 03/21/17 02:31 56 17 146/80 95 Room Air 03/21/17 02:01 55 14 142/87 95 Room Air 03/21/17 01:31 55 15 173/94 95 Room Air 03/21/17 01:04 50 03/21/17 01:00 48 17 183/91 96 Room Air 03/21/17 00:26 36.7 61 20 182/85 96 Room Air Physical Exam GENERAL: alert, well appearing, well nourished, no distress, non-toxic EYE EXAM: normal conjunctiva, PERRL and EOM's grossly intact OROPHARYNX: no exudate, no erythema, lips, buccal mucosa, and tongue normal and mucous membranes are mildly dry. NECK: supple, no nuchal rigidity, no adenopathy, non-tender LUNGS: Clear to auscultation. Normal chest wall mechanics HEART: no murmurs, S1 normal and S2 normal ABDOMEN: abdomen soft, normo-active bowel sounds, no masses, no rebound or guarding. Mild tenderness to the RUQ. BACK: Back is symmetrical on inspection and there is no deformity, no midline tenderness, no CVA tenderness. SKIN: no rashes and no bruising UPPER EXTREMITIES: upper extremities are grossly normal. LOWER EXTREMITIES: No pitting edema. NEURO EXAM: Normal sensorium, cranial nerves II-XII grossly intact, normal speech, no gross weakness of arms, no gross weakness of legs. Medical Decision & Procedures ER Provider Diagnostic Interpretation: CT results per statrad and my review. CT ABDOMEN & PELVIS With Contrast: Comparison 06/02/2016. Gallbladder is surgically absent. Liver, pancreas, and spleen are unremarkable. Mild thickening of the left adrenal gland. Cysts are noted within both kidneys. No hydronephrosis. Uterus is surgically absent. Small hiatal hernia. Appendix is likely surgically absent or diminutive. Noninflammed colonic diverticulosis. No acute osseous abnormality. Laboratory Results 03/21/17 00:55 Red Blood Count 4.61, Mean Corpuscular Volume 88.7, Mean Corpuscular Hemoglobin 31.0, Mean Corpuscular Hemoglobin Concent 35.0, Mean Platelet Volume 9.7, Neutrophils (%) (Auto) 57.3, Lymphocytes (%) (Auto) 33.9, Monocytes (%) (Auto) 6.9, Eosinophils (%) (Auto) 1.3, Basophils (%) (Auto) 0.5, Neutrophils # (Auto) 5.05, Lymphocytes # (Auto) 2.98, Monocytes # (Auto) 0.61, Eosinophils # (Auto) 0.11, Basophils # (Auto) 0.04 03/21/17 00:55 Test 03/21/17 00:55 White Blood Count 8.80 K/uL (4.8-10.8) Red Blood Count 4.61 M/uL (4.2-5.4) Hemoglobin 14.3 g/dL (12.0-16.0) Hematocrit 40.9 % (37-47) Mean Corpuscular Volume 88.7 fL (80-100) Mean Corpuscular Hemoglobin 31.0 pg (25-34) Mean Corpuscular Hemoglobin Concent 35.0 g/dl (32-36) Platelet Count 275 K/uL (130-400) Mean Platelet Volume 9.7 fL (7.4-10.4) Neutrophils (%) (Auto) 57.3 % Lymphocytes (%) (Auto) 33.9 % Monocytes (%) (Auto) 6.9 % Eosinophils (%) (Auto) 1.3 % Basophils (%) (Auto) 0.5 % Neutrophils # (Auto) 5.05 K/uL (1.4-6.5) Lymphocytes # (Auto) 2.98 K/uL (1.2-3.4) Monocytes # (Auto) 0.61 K/uL (0.11-0.59) Eosinophils # (Auto) 0.11 K/uL (0-0.5) Basophils # (Auto) 0.04 K/uL (0-0.2) RDW Standard Deviation 41.9 fL (36.4-46.3) RDW Coefficient of Variation 13.1 % (11.5-14.5) Immature Granulocyte % (Auto) 0.1 % Immature Granulocyte # (Auto) 0.01 K/uL (0.00-0.02) Urine Color YELLOW Urine Appearance CLEAR (CLEAR) Urine pH 5.0 (4.5-7.5) Urine Specific [place] 1.021 (1.000-1.030) Urine Protein NEG (NEG) Urine Glucose (UA) NEG (NEG) Urine Ketones NEG (NEG) Urine Occult Blood NEG (NEG) Urine Nitrite NEG (NEG) Urine Bilirubin NEG (NEG) Urine Urobilinogen NEG (NEG) Urine Leukocyte Esterase MODERATE (NEG) Urine WBC (Auto) 10-30 /hpf (0-5) Urine RBC (Auto) 0-4 /hpf (0-4) Urine Hyaline Casts (Auto) 1-5 /lpf (0-5) Urine Epithelial Cells (Auto) >30 /lpf (0-5) Urine Bacteria (Auto) NEG (NEG) Anion Gap 8.0 mmol/L (3-11) Est Creatinine Clear Calc Drug Dose 80.8 ml/min Estimated GFR () 91.8 Estimated GFR (Non- 79.2 BUN/Creatinine Ratio 19.6 (10-20) Calcium Level 8.7 mg/dl (8.5-10.1) Total Bilirubin 0.2 mg/dl (0.2-1) Aspartate Amino Transf (AST/SGOT) 18 U/L (15-37) Alanine Aminotransferase (ALT/SGPT) 22 U/L (12-78) Alkaline Phosphatase 73 U/L (45-117) Troponin I < 0.015 ng/ml (0-0.045) Total Protein 7.5 gm/dl (6.4-8.2) Albumin 3.6 gm/dl (3.4-5.0) Globulin 3.9 gm/dl (2.5-4.0) Albumin/Globulin Ratio 0.9 (0.9-2) Lipase 278 U/L (73-393) Chemistry Specimen Hemolysis Laboratory results per my review. Medications Administered Medications (Trade) Dose Ordered Sig/Rosalinda Route Start Time Stop Time Status Last Admin Dose Admin Sodium Chloride 1,000 ml @ 999 mls/hr Q1H1M STAT IV 03/21/17 01:31 03/21/17 02:31 DC 03/21/17 02:13 999 MLS/HR Acetaminophen 650 mg/Empty Bag 65 ml @ 260 mls/hr NOW STAT IV 03/21/17 01:31 03/21/17 01:45 DC 03/21/17 02:26 260 MLS/HR Ondansetron HCl (Zofran Inj) 4 mg NOW STAT IV 03/21/17 01:31 03/21/17 01:34 DC 03/21/17 02:12 4 MG ECG Indication: abdominal pain Rate (beats per minute): 48 Rhythm: sinus bradycardia Findings: Q waves (V2-V3), no acute ischemic change, no ectopy, other (Normal axis. Normal intervals. ) ED Course 0123: The patient was evaluated in room B12B. A complete history and physical exam was performed. 0440: I updated the patient on her results. She will complete a PO challenge. 0530: Upon reevaluation, the patient is feeling better. She has tolerated sips, and has been able to successfully ambulate to the bathroom. I discussed the findings and the treatment plan with the patient. She verbalizes agreement and understanding. She was discharged home. Medical Decision Differential diagnosis: Etiologies such as appendicitis, diverticulitis, PUD, biliary pathology, UTI, pancreatitis, obstruction, mesenteric ischemia, aortic pathology, infections, inflammatory bowel disease, renal colic, as well as others were entertained. Patient presented with worsening upper abdominal pain over the last 3 days. Labs and imaging reassuring. Doubt cardiac or pulmonary pathology. Doubt PE. Discussed with patient possibly related to history of peptic ulcer disease and duodenitis. Patient states she has been compliant with her routine medications which include an acid reducing medication. Discussed bland diet, follow-up with family doctor, follow-up with GI specialist, symptoms to watch and return for, she verbalized understanding was agreeable with plan. Patient stated pain improved following administration of initial GI medications. Patient with no vomiting or diarrhea while here, afebrile. Doubt occult infectious etiology, bacteremia/sepsis. Patient feels possibly related to cholesterol medication as she has had issue with prior cluster medications in the past. Discussed while possible, additional testing may be required. No evidence for perforation, doubt mesenteric ischemia, colitis. Have a low suspicion for an occult GI bleed. Patient hemodynamically stable throughout, stable H&H. UA suboptimal specimen, likely contaminated, doubt acute infection including UTI. Medication Reconcilliation Current Medication List: was personally reviewed by me Blood Pressure Screening Patient's blood pressure: Elevated blood pressure Blood pressure disposition: Referred to PCP Impression Primary Impression: Abdominal pain Scribe Attestation The scribe's documentation has been prepared under my direction and personally reviewed by me in its entirety. I confirm that the note above accurately reflects all work, treatment, procedures, and medical decision making performed by me. Departure Information Dispostion Home / Self-Care Referrals RV. Sommer MD (PCP) Patient Instructions My [facility] Additional Instructions Please call and follow-up with your family doctor. Please continue your regular medications. You may try stopping your new cholesterol medication in the interim, but if your symptoms return or persist, you may need to see a GI specialist also. Please continue taking your pantoprazole daily. If you have any recurrent pain, vomiting, black or bloody stools, develop fevers/chills, back pain, chest pain, trouble breathing, dizziness, or you have any other new or concerning symptoms, please return to the emergency room. Problem Qualifiers Primary Impression: Abdominal pain Abdominal location: right upper quadrant Qualified Codes: R10.11 - Right upper quadrant pain
[2017-03-21 05:46] VITALS: BP 168/98; PULSE 59; O2SAT 96
--- NOTE | 2017-03-21 07:27 | DIAGNOSTIC IMAGING REPORT ---
CT SCAN OF THE ABDOMEN AND PELVIS WITH IV CONTRAST CLINICAL HISTORY: Right upper quadrant abdominal pain. COMPARISON STUDY: Abdominal CT dated 06/02/2016. TECHNIQUE: Following the IV administration of 115 cc of Optiray 320, CT scan of the abdomen and pelvis is performed from the lung bases to the proximal femora. Images are reviewed in the axial, sagittal, and coronal planes. IV contrast was administered without complication. A dose lowering technique was utilized adhering to the principles of ALARA. CT DOSE: 709.96 mGy.cm FINDINGS: Lung bases: The heart is normal in size and without pericardial effusion. The coronary arteries are densely calcified. The lung bases are clear. There is a small to moderate hiatal hernia. Liver: The contrast-enhanced liver is enlarged, measuring 20 cm in length. The liver demonstrates diffusely diminished attenuation consistent with hepatic steatosis. There is no intrahepatic biliary ductal dilatation. The hepatic veins and portal veins are patent. Gallbladder: Surgically absent noting clips in the gallbladder fossa. Spleen: Normal in size and attenuation. Pancreas: Unremarkable. Adrenal glands: A 1.7 cm left adrenal nodule adenoma is unchanged. The right adrenal gland is unremarkable. Kidneys: The contrast enhanced kidneys are normal in size and without hydronephrosis. The kidneys enhance symmetrically. 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 Abdominal vasculature: The abdominal aorta is normal in course and caliber noting moderate atherosclerotic calcification. Bowel: There is mild colonic diverticulosis without CT evidence of acute diverticulitis. Mild colonic fecal retention is observed. No bowel obstruction is seen. The appendix is not identified. Postoperative change in the right lower quadrant suggests previous appendectomy. Peritoneum: There is no intraperitoneal free air or abdominal ascites. Lymphadenopathy: None. Pelvic viscera: The bladder is normal as visualized. The uterus is surgically absent. No adnexal lesion is seen. Skeletal structures: The skeletal structures are osteopenic. There is mild lumbosacral spondylosis. No lytic or blastic lesions are seen. IMPRESSION: 1. There are no acute infectious or inflammatory findings in the abdomen or pelvis. 2. Hepatomegaly and hepatic steatosis. 3. Mild colonic diverticulosis without CT evidence of acute diverticulitis. 4. Additional findings as above. Electronically signed by: Josue Corral M.D. 03/21/2017 7:26 AM Dictated Date/Time: 03/21/2017 7:19 AM
--- NOTE | 2017-03-23 11:56 | Pharmacy Progress Note ---
ED Pharmacist Culture FollowUp Date of Service: Mar 23, 2017. Patient's urine culture growing Gardnerella-like bacilli >100,000 CFU/ml. UA > 30 epis, neg bacteria. Likely contaminate. Discussed with Dr. Benedict who agrees no treatment necessary at this time.
== END 2017-03-21 05:48 | disposition home or self-care (01) ==
LOC: C.EDB 00:25
DX: R10.11 Right upper quadrant pain (principal); Z90.49 Acquired absence of other specified parts of digestive tract; K21.9 Gastro-esophageal reflux disease without esophagitis; I25.2 Old myocardial infarction; I25.10 Atherosclerotic heart disease of native coronary artery without angina pectoris; I10 Essential (primary) hypertension; Z83.3 Family history of diabetes mellitus; Z82.49 Family history of ischemic heart disease and other diseases of the circulatory system; Z87.891 Personal history of nicotine dependence; Z79.82 Long term (current) use of aspirin; Z79.899 Other long term (current) drug therapy

== ENCOUNTER → 2017-07-04 | Outpatient (CLI) | payer OTHER ==
[~2017-07-04] MED LIST changes: +ASPI-319 PO; -ASPI81TA21 PO; +ATEN-175 PO; -ATEN100T PO; +BACL10TA PO; +COEN50CA22 PO; -COQ10 PO; +FENO48TA9 PO; +KRIL1000 PO; -KRIL1CAP7 PO; -STRESS TAB PO; -TURM1CAP4 PO
[2017-07-04 11:17] LABS: BLOOD UREA NITROGEN 13 mg/dl (7-18); CREATININE 0.87 mg/dl (0.60-1.20)
== END | disposition home or self-care (01) ==
LOC: C.LAB1850 10:30
PROVIDERS: ATTEND Urology
DX: D49.7 Neoplasm of unspecified behavior of endocrine glands and other parts of nervous system (principal)

== ENCOUNTER → 2017-09-10 | Outpatient (CLI) | payer OTHER ==
[~2017-09-10] MED LIST changes: +CYM20 PO
[2017-09-10 13:01] LABS: ALBUMIN 3.7 gm/dl (3.4-5.0); ALKALINE PHOSPHATASE 84 U/L (45-117); ALT/SGPT 30 U/L (12-78); AST/SGOT 20 U/L (15-37); BLOOD UREA NITROGEN 13 mg/dl (7-18); CALCIUM 8.8 mg/dl (8.5-10.1); CARBON DIOXIDE 27 mmol/L (21-32); CHOLESTEROL 313 mg/dl (0-200); GLUCOSE 104 mg/dl (70-99); LDL CHOLESTEROL CALCULATED 218 mg/dl; SODIUM 140 mmol/L (136-145); TOTAL PROTEIN 7.4 gm/dl (6.4-8.2)
[2017-09-10 13:04] LABS: HEMOGLOBIN A1C 5.7 % (4.5-5.6)
== END | disposition home or self-care (01) ==
LOC: C.LAB1850 10:13
PROVIDERS: ATTEND Internal Medicine
DX: R73.9 Hyperglycemia, unspecified (principal); E78.00 Pure hypercholesterolemia, unspecified

== ENCOUNTER → 2017-09-28 | Day surgery (SDC) | payer OTHER ==
[2017-09-26 15:41] VITALS: Ht 172.7 cm; Wt 84.1 kg
[~2017-09-28] VITALS: Ht 172.7 cm; Wt 84.1 kg
[~2017-09-28] MED LIST changes: +ACET-1222 PO; +DICLOFENAC GEL TOP; -FLUT1SPR12 NAE; +LIDOCAINE HCL 2% 2 ML VIAL (20MG/ML) ONE; -LISI-461 PO; +LISI20TA3 PO; +NYST100033 TD; +ONDA4TAB46 PO; +PROPOFOL IV EMULSION 10 MG/ML 20 ML VIAL ONE; +SODIUM CHLORIDE 0.9% 500ML 500 ML IV ONE
--- NOTE | 2017-09-28 12:56 | Endo History and Physical ---
History & Physical Date of Service: Sep 28, 2017. Chief Complaint: History of Gastric ulcer, H. pylori, Schatzki's ring Referring Physician: Dr. Louis History of Present Illness 66 yo CF who presents for EGD secondary to history of gastric ulcer, history of H. pylori and Schatzki's Ring. Past Medical History Angioplasty/Stent, Arthritis, Anxiety, Reflux, High Cholesterol, Hypertension, SD Past Surgical History Hx Cardiac Surgery: Yes (HEART CATH X 2-2 STENTS PLACED-01/2012) Hx Internal Defibrillator: No Hx Pacemaker: No Hx Abdominal Surgery: Yes ( X 3, JUDE BSO, ALEJANDRO) Hx of Implantable Prosthesis: No Hx Post-Op Nausea and Vomiting: Yes (HX VERTIGO-WORRIED SHE WILL GET PONV/ VERTIGO IF WAKES UP TOO FAST) Hx Cancer Surgery: No Hx Thoracic Surgery: No Hx Orthopedic: No Hx Urinary Tract Surgery: No Family History Colon CA Social History Smoking Status: Former Smoker Hx Substance Use: Yes (LORAZEPAM PRN) Hx Alcohol Use: No Allergies Coded Allergies: Clopidogrel (Verified Allergy, Unknown, BRUISING, 09/26/17) Codeine (Verified Allergy, Unknown, CODEINE DERIVATIVES-CODED AFTER TAKING -VERY LOW BP,PASSING, 09/26/17) OUT pt prefers to avoid all pain medication other than tylenol Latex (Verified Allergy, Unknown, SWELLING AT SITE OF CONTACT, 09/26/17) SOB NAUSEA IN ROOM PAINTING WITH LATEX PAINT AND BLOWING UP BALLOONS Statins (Verified Allergy, Unknown, MUSCLE ACHES, 09/26/17) Current Medications Reported Home Medications Medications Dose Route/Sig Max Daily Dose Days Date Category Acetaminophen Extra Stren (Acetaminophen) 500 Mg Tab 2 Tab PO Q6 09/26/17 Reported Zofran (Ondansetron HCl) 4 Mg Tab 4 Mg PO Q6 PRN 09/26/17 Reported Nystatin (Nystatin (Topical)) 100,000 Unit/Gm Pow 2-3 Appln TD DIRECTED 09/26/17 Reported [Diclofenac Gel] 1 Appln TOP DIRECTED 09/26/17 Reported Prinivil (Lisinopril) 20 Mg Tab 20 Mg PO HS 09/26/17 Reported Duloxetine HCl 20 Mg Cap 40 Mg PO DAILY 08/09/17 Reported Tricor (Fenofibrate) 48 Mg Tab 1 Tab PO QPM 03/29/17 Reported Protonix (Pantoprazole Sodium) 40 Mg Tab 40 Mg PO BID 03/29/17 Reported Krill Oil 1 Cap Cap 1 Cap PO QPM 03/29/17 Reported Coq10 (Coenzyme Q10 (Ubidecarenone)) 50 Mg Cap 1 Cap PO QPM 03/29/17 Reported Tenormin (Atenolol) 100 Mg Tab 100 Mg PO HS 03/29/17 Reported Lioresal (Baclofen) 10 Mg Tab 5 Mg PO BID 03/29/17 Reported Ventolin Hfa (Albuterol) 60 Puffs/5400 Mcg Aers 1-2 Puffs INH BID PRN 08/20/16 Reported Catapres (Clonidine Hcl) 0.1 Mg Tab 1 Tab PO Q8-12H PRN 90 08/20/16 Reported Vitamin B12 100 Mcg (Cyanocobalamin) 100 Mcg Tab 100 Mcg PO QAM 08/20/16 Reported Biotin 1 Mg Cap 1 Mg PO QAM 08/20/16 Reported Ativan (Lorazepam) 0.5 Mg Tab 0.5 Mg PO TID PRN 06/24/16 Reported Multivitamin Women 50+ (Multiple Vitamins W/ Minerals) 1 Tab Tab 1 Tab PO QAM 06/02/16 Reported Meclizine Hcl 25 Mg Tab 1 Tab PO TID PRN 10 07/31/15 Reported Vitamin D (Cholecalciferol) 5,000 Unit Tab 5,000 Units PO QAM 08/27/14 Reported Nitrostat (Nitroglycerin) 0.4 Mg Tab 0.4 Mg UT UD PRN 02/27/14 Reported Cinnamon 500 Mg Tab 1,000 Mg PO QAM 09/06/13 Reported Ecotrin Or Generic (Aspirin) 81 Mg Tab 81 Mg PO QAM 02/11/12 Reported Vital Signs Weight (Kilograms): 84.09 Height (Feet): 5 Height (Inches): 8 Physical Exam General Appearance: WD/WN, no apparent distress Respiratory/Chest: Auscultation: breath sounds normal Cardiovascular: Heart Auscultation: RRR Abdomen: Bowel Sounds: normal Inspection & Palpation: soft, non-distended, no tenderness, guarding & rebound Assessment and Plan Assessment: 66 yo CF who presents for EGD secondary to history of gastric ulcer, history of H. pylori and Schatzki's Ring. Plan: Proceed with EGD.
--- NOTE | 2017-09-28 14:17 | GI REPORT ---
Patient Name: Daja Spivey Procedure Date: 09/28/2017 1:43 PM Date of : 1950 Admit Type: Outpatient Age: 66 Gender: Female Attending MD: Phil Art DO Procedure: Upper GI endoscopy Providers: Phil Art DO Referring MD: Alisha Croft Indications: Follow-up of gastric ulcer, History of H. pylori infection, History of Schatzki's ring Medicines: Monitored Anesthesia Care Complications: No immediate complications. Estimated Blood Loss: Estimated blood loss: none. Procedure: Pre-Anesthesia Assessment: - Prior to the procedure, a History and Physical was performed, and patient medications and allergies were reviewed. The patient's tolerance of previous anesthesia was also reviewed. The risks and benefits of the procedure and the sedation options and risks were discussed with the patient. All questions were answered, and informed consent was obtained. Prior Anticoagulants: The patient has taken aspirin, last dose was 1 day prior to procedure. ASA Grade Assessment: III - A patient with severe systemic disease. After reviewing the risks and benefits, the patient was deemed in satisfactory condition to undergo the procedure. After obtaining informed consent, the endoscope was passed under direct vision. Throughout the procedure, the patient's blood pressure, pulse, and oxygen saturations were monitored continuously. The Scope was introduced through the mouth, and advanced to the second part of duodenum. The upper GI endoscopy was accomplished without difficulty. The patient tolerated the procedure well. Findings: A mild Schatzki ring (acquired) was found at the gastroesophageal junction. A TTS dilator was passed through the scope. Dilation with an 18-19-20 mm balloon dilator was performed to 20 mm. A small hiatal hernia was present. Biopsies were taken with a cold forceps in the gastric antrum for Helicobacter pylori testing. The examined duodenum was normal. Impression: - Mild Schatzki ring. Dilated. - Small hiatal hernia. - Normal examined duodenum. - Biopsies were taken with a cold forceps for Helicobacter pylori testing. Recommendation: - Resume previous diet. - Continue present medications. - Await pathology results. - Return to primary care physician as previously scheduled. Phil Art DO 09/28/2017 2:17:17 PM This report has been signed electronically. Note Initiated On: 09/28/2017 1:43 PM Number of Addenda: 0 I attest to the content of the Intraoperative Record and orders documented therein, exceptions below {[id number]}
--- NOTE | 2017-09-28 14:18 | Anesthesiology Progress Note ---
Anesthesia Post Op Note Date & Time Sep 28, 2017 at 14:18 Vital Signs Pain Intensity: 0 Vital Signs Past 12 Hours Date Time Temp Pulse Resp B/P (MAP) Pulse Ox O2 Delivery O2 Flow Rate FiO2 09/28/17 14:08 56 16 129/74 (92) 94 Room Air 09/28/17 13:03 36.8 60 18 163/82 (109) 97 Room Air Notes Mental Status: alert / awake / arousable, participated in evaluation Pt Amnestic to Procedure: Yes Nausea / Vomiting: adequately controlled Pain: adequately controlled Airway Patency, RR, SpO2: stable & adequate BP & HR: stable & adequate Hydration State: stable & adequate Anesthetic Complications: no major complications apparent
--- NOTE | 2017-09-28 14:29 | Discharge Instructions ---
Endoscopy Patient Instructions Date / Procedure(s) Performed Sep 28, 2017. EGD Allergy Information Coded Allergies: Clopidogrel (Verified Allergy, Unknown, BRUISING, 09/26/17) Codeine (Verified Allergy, Unknown, CODEINE DERIVATIVES-CODED AFTER TAKING -VERY LOW BP,PASSING, 09/26/17) OUT pt prefers to avoid all pain medication other than tylenol Latex (Verified Allergy, Unknown, SWELLING AT SITE OF CONTACT, 09/26/17) SOB NAUSEA IN ROOM PAINTING WITH LATEX PAINT AND BLOWING UP BALLOONS Statins (Verified Allergy, Unknown, MUSCLE ACHES, 09/26/17) Discharge Date / Findings Sep 28, 2017. Schatzki's ring s/p dilation Hiatal hernia Gastric antrum biopsies Medication Instructions Stopped Medication(s): Patient only took her protonix this am. OK to resume all medications today as prescribed Reported Home Medications Medications Dose Route/Sig Max Daily Dose Days Date Category Acetaminophen Extra Stren (Acetaminophen) 500 Mg Tab 2 Tab PO Q6 09/26/17 Reported Zofran (Ondansetron HCl) 4 Mg Tab 4 Mg PO Q6 PRN 09/26/17 Reported Nystatin (Nystatin (Topical)) 100,000 Unit/Gm Pow 2-3 Appln TD DIRECTED 09/26/17 Reported [Diclofenac Gel] 1 Appln TOP DIRECTED 09/26/17 Reported Prinivil (Lisinopril) 20 Mg Tab 20 Mg PO HS 09/26/17 Reported Duloxetine HCl 20 Mg Cap 40 Mg PO DAILY 08/09/17 Reported Tricor (Fenofibrate) 48 Mg Tab 1 Tab PO QPM 03/29/17 Reported Protonix (Pantoprazole Sodium) 40 Mg Tab 40 Mg PO BID 03/29/17 Reported Krill Oil 1 Cap Cap 1 Cap PO QPM 03/29/17 Reported Coq10 (Coenzyme Q10 (Ubidecarenone)) 50 Mg Cap 1 Cap PO QPM 03/29/17 Reported Tenormin (Atenolol) 100 Mg Tab 100 Mg PO HS 03/29/17 Reported Lioresal (Baclofen) 10 Mg Tab 5 Mg PO BID 03/29/17 Reported Ventolin Hfa (Albuterol) 60 Puffs/5400 Mcg Aers 1-2 Puffs INH BID PRN 08/20/16 Reported Catapres (Clonidine Hcl) 0.1 Mg Tab 1 Tab PO Q8-12H PRN 90 08/20/16 Reported Vitamin B12 100 Mcg (Cyanocobalamin) 100 Mcg Tab 100 Mcg PO QAM 08/20/16 Reported Biotin 1 Mg Cap 1 Mg PO QAM 08/20/16 Reported Ativan (Lorazepam) 0.5 Mg Tab 0.5 Mg PO TID PRN 06/24/16 Reported Multivitamin Women 50+ (Multiple Vitamins W/ Minerals) 1 Tab Tab 1 Tab PO QAM 06/02/16 Reported Meclizine Hcl 25 Mg Tab 1 Tab PO TID PRN 10 07/31/15 Reported Vitamin D (Cholecalciferol) 5,000 Unit Tab 5,000 Units PO QAM 08/27/14 Reported Nitrostat (Nitroglycerin) 0.4 Mg Tab 0.4 Mg UT UD PRN 02/27/14 Reported Cinnamon 500 Mg Tab 1,000 Mg PO QAM 09/06/13 Reported Ecotrin Or Generic (Aspirin) 81 Mg Tab 81 Mg PO QAM 02/11/12 Reported Provider Instructions Activity Restrictions - No exercising or heavy lifting for 24 hours. - Do not drink alcohol the day of the procedure. - Do not drive a car or operate machinery until the day after the procedure. - Do not make any important decisions or sign important papers in 24 hours after the procedure. Following Day: - Return to full activity which may include returning to work/school. Diet Start your diet with liquids and light foods (jello, soup, juice, toast). Then eat your usual diet if not nauseated. Treatment For Common After Affects For mild abdominal pain, bloating, or excessive gas: - Rest - Eat lightly - Lie on right side Follow-Up Information Follow-up with Dr. Sommer as scheduled Anesthesia Information What You Should Know You have had a procedure that required some medicine to reduce anxiety and discomfort. This treatment is called moderate sedation. After receiving the treatment, you may be sleepy, but you will be able to breathe on your own. The effects of the treatment may last for several hours. Follow these instructions along with Activity/Diet recommendations noted above: * Do NOT do anything where dizziness or clumsiness would be dangerous. * Rest quietly at home today, then you can be up and about tomorrow. * Have a responsible person stay with you the rest of today. * You may have had an I.V. today. If so, you may take the dressing off later today. Recommendations Call your doctor if: * Trouble breathing * Continuous vomiting for more than 24 hours * Temperature above 101 degrees * Severe abdominal pain or bloating * Pain not relieved by pain medicine ordered * There is increased drainage or redness from any incision * A large amount of rectal bleeding greater than 2-3 tablespoons. (If you had a polyp/s removed or have hemorrhoids, a small amount of blood - from the rectum is to be expected.) * You have any unanswered questions or concerns. IN THE EVENT OF A SERIOUS EMERGENCY, GO TO THE NEAREST EMERGENCY ROOM Your discharge instructions were prepared by provider Phil Art. Patient Instructions Signature Page Daja Spivey Patient (or Guardian) Signature/Date: I have read and understand the instructions given to me by my caregivers. Caregiver/RN/Doctor Signature/Date: The above-named patient and/or guardian has received patient instructions on this date. + Original Patient Signature Page (only) stays with chart. Please make copy for patient.
[2017-09-28 14:38] VITALS: BP 152/89; PULSE 61; O2SAT 98
== END | disposition home or self-care (01) ==
LOC: C.GI 12:23
PROVIDERS: ATTEND Internal Medicine
DX: Z09 Encounter for follow-up examination after completed treatment for conditions other than malignant neoplasm (principal); K22.2 Esophageal obstruction; K44.9 Diaphragmatic hernia without obstruction or gangrene; K29.50 Unspecified chronic gastritis without bleeding; I25.10 Atherosclerotic heart disease of native coronary artery without angina pectoris; I25.2 Old myocardial infarction; I10 Essential (primary) hypertension; Z87.891 Personal history of nicotine dependence; J44.9 Chronic obstructive pulmonary disease, unspecified; Z88.5 Allergy status to narcotic agent; Z88.8 Allergy status to other drugs, medicaments and biological substances

== ENCOUNTER 2018-03-20 18:50 | Inpatient (IN) ==
[2018-03-20] MEDS ORDERED: LORazepam 1 MG/2 ML VIAL IV PRN (20:07)
[2018-03-20] MEDS ORDERED: LORazepam 1 MG/2 ML VIAL IV STA (20:07)
[2018-03-20] MEDS ORDERED: GADOBUTROL 65ML VIAL IV PRN (21:18)
--- NOTE | 2018-03-20 21:34 | Magnetic Resonance Report ---
MR brain wo/w con HISTORY: 67 years-old Female dysarthria, word finding difficulty, fall on Satur acute strokelike sym ptoms COMPARISON: CT head 03/19/2018, MRI brain 08/20/2015 TECHNIQUE: Multiplanar multisequence MRI of the brain was obtained both with and without the use of 7 mL Gadavist FINDINGS: Ampoule Filler And Sealer localizer images demonstrate no gross extracranial abnormality. The midline structures includin g the corpus callosum, brainstem, optic chiasm, pituitary and pineal glands appear unremarkable the s agittal T1 series. No cerebellar tonsillar herniation. Degenerative changes about the cervical spine noted. There are multiple subcentimeter foci of restricted diffusion about the watershed distribution of the left centrum semiovale and subcortical white matter of the left parietal and temporal lobes measurin g up to 4 mm demonstrating intermediate to low signal on the ADC map and intermediate slightly increa sed signal on the T2/FLAIR series compatible with areas of acute to subacute infarction. No large acu te territorial infarct identified. Right cerebral hemisphere appears unremarkable. Single focus of sl ightly increased diffusion-weighted signal about the right frontal lobe on image 12 series 5 is favor ed be artifactual. Study is motion degraded. No acute intracranial hemorrhage, midline shift, abnormal extra axial colle ctions, hydrocephalus or intracranial mass. Mild age-related involutional changes. Moderate T2/FLAIR hyperintensities about the white matter are suggestive of chronic microvascular ischemic changes. No pathologic blooming artifact on the T2 star series. There is no abnormal intra-axial or extra-axial e nhancement identified. A normal right vertebral artery flow-void is not seen and may be secondary to hypoplastic or chronica lly occluded vessel. The remaining flow voids appear unremarkable. Orbits are unremarkable. Mastoid a ir cells are clear. Mild mucosal thickening about the ethmoid air cells. The skull and soft tissues a re unremarkable. IMPRESSION: 1. Multiple subcentimeter foci of restricted diffusion about the watershed distribution of the left c entrum semiovale and subcortical white matter of the left parietal and temporal lobes are compatible with areas of acute to subacute infarction. 2. No significant cytotoxic edema, midline shift or intracranial hemorrhage. 3. Suggestion of moderate chronic microvascular ischemic changes. 4. No abnormal enhancement. 5. Motion degraded exam. The above report was generated using voice recognition software. It may contain grammatical, syntax o r spelling errors. Electronically signed by: Jeremy Pelaez M.D. 03/20/2018 9:32 PM
[2018-03-20 21:36] LABS: Basophils # (auto) 0.03 K/uL (0-0.2); Basophils % (auto) 0.4 %; Eosinophils # (auto) 0.05 K/uL (0-0.5); Eosinophils % (auto) 0.6 %; Hematocrit (blood only) 40.5 % (37-47); Hemoglobin 13.1 g/dL (12.0-16.0); Immature Granulocytes # (auto) 0.02 K/uL (0.00-0.02); Immature Granulocytes % (auto) 0.2 %; Lymphocytes # (auto) 2.61 K/uL (1.2-3.4); Lymphocytes % (auto) 30.8 %; Mean Corpuscular Hgb Conc 32.3 g/dL (32-36); Mean Corpuscular Volume 86.5 fL (80-100); Monocytes # (auto) 0.45 K/uL (0.11-0.59); Monocytes % (auto) 5.3 %; Neutrophils # (auto) 5.32 K/uL (1.4-6.5); Neutrophils % (auto) 62.7 %; Platelet Count 323 K/uL (130-400); RDW Coefficient of Variation 13.6 % (11.5-14.5); RDW Standard Deviation 42.7 fL (36.4-46.3); Red Blood Count 4.68 M/uL (4.2-5.4); White Blood Count 8.48 K/uL (4.8-10.8)
[2018-03-20 21:39] LABS: Alanine Aminotransferase 29 U/L (12-78); Albumin Level 3.6 gm/dl (3.4-5.0); Aspartate Aminotransferase 17 U/L (15-37); BUN Creatinine Ratio 21.8 (10-20); Blood Urea Nitrogen 20 mg/dl (7-18); Calcium 9.1 mg/dl (8.5-10.1); Carbon Dioxide 27 mmol/L (21-32); Chloride 106 mmol/L (98-107); Creatinine Clr Calc Pharmacy 61.2 ml/min; Est GFR (African American) 76.7; Est GFR (Non-African American) 66.2; Glucose 101 mg/dl (70-99); Potassium 4.2 mmol/L (3.5-5.1); Sodium 139 mmol/L (136-145)
[2018-03-20 21:50] LABS: Albumin Globulin Ratio 0.9 (0.9-2); Alkaline Phosphatase 95 U/L (45-117); Bilirubin,Total 0.4 mg/dl (0.2-1); Total Protein 7.6 gm/dl (6.4-8.2); Troponin I < 0.015 ng/ml (0-0.045)
[2018-03-20] MEDS ORDERED: ASPIRIN CHEW 324 MG PO STA (22:12)
--- NOTE | 2018-03-21 00:37 | History & Physical Report ---
Addendum entered and electronically signed by Charissa Manriquez MD 03/21/18 05:17 : Addendum (Blank) Addendum March 21, 2018 05:16 Patient's son and point of contact is Luis Dickinson, cell phone number . He plans to be at his mother's bedside after work on 03/21/2018 at about 4 PM. Addendum entered and electronically signed by Charissa Manriquez MD 03/21/18 02:43 : Addendum (Blank) Addendum March 21, 2018 02:40 0218: Stat rad report reviewed of CTA head: Shows high-grade stenosis or critical occlusion of M 1 branch of the left MCA. CTA neck: Shows common carotid and internal carotid arteries are patent. Original Note: Date of Service March 21, 2018 Assessment & Plan (1) CVA (cerebral vascular accident): 67-year-old female here with PMH HLD, CAD s/p stents x2, HTN who presents with multiple neurological complaints starting 4 days ago with syncope at home, nonspecific weakness and difficulty finding her words. She was seen in the emergency room yesterday. A CT of the head without contrast showed no acute abnormalities. She did not present with any neurologic findings on exam. She was advised to proceed with MRI however patient declined and said she would go to her PCP to schedule as outpatient. Patient was seen for physical exam today in her PCP office. Imaging was scheduled. Patient then presented to the emergency room. Brain MRI with and without contrast showed acute to subacute infarct in the left temporal and parietal lobes. Imaging also suggests moderate chronic microvascular ischemic changes, no intracranial hemorrhage. Cerebrovascular accident -Per report nonspecific neurologic symptoms began at least 4 days ago, with dysarthria presenting on day 4. -CT of the head without contrast showed no acute abnormalities. MRI with and without contrast today shows evidence of acute/subacute infarct in the left parietal and temporal lobes consistent with patient's findings today of right facial droop and dysarthria. -Received 324 mg aspirin in ED Plan -Stroke pathway initiated -Consult neurology -will need to coordinate optimal medical therapy moving forward -CTA of the head and neck now -Not a candidate for TPA given timeline -N.p.o. until speech can evaluate -Neurochecks per protocol -Echocardiogram, lipids, A1c in the a.m. -PT OT FEN/GI: N.p.o. until speech can evaluate DVT ppx: Lovenox every 12 CODE STATUS: Full code, as confirmed with patient's son DISPO: Telemetry Other ongoing medical problems CAD, hyperlipidemia, status post 2 stents RCA and LAD, intolerant of statins and Plavix, hypercholesterolemia -This certainly presents a difficult situation with regard to risk prevention -Currently on fenofibrate 48 mg p.o. at bedtime, lisinopril 20 mg daily, atenolol 100 mg daily, aspirin 81 mg daily Anxiety Continue home p.o. meds when cleared by speech -Duloxetine, lorazepam 0.5 mg p.o. 3 times daily GERD -Pantoprazole 40 mg p.o. twice daily (2) CAD (coronary artery disease): (3) Hypercholesterolemia with LDL greater than 190 mg/dL: (4) Benign essential hypertension: (5) Statin intolerance: (6) History of coronary artery stent placement: (7) Anxiety: (8) Dysarthria as late effect of cerebrovascular accident (CVA): History of Present Illness Chief Complaint: Stroke Primary Care Provider: Broderick Sommer MD 67-year-old female here with multiple neurological complaints starting 4 days ago with syncope at home, nonspecific weakness and difficulty finding her words. She was seen in the emergency room yesterday. A CT of the head without contrast showed no acute abnormalities. She did not present with any neurologic findings on exam. She was advised to proceed with MRI however patient declined and said she would go to her PCP to schedule as outpatient. Patient was seen for physical exam today in her PCP office. Imaging was scheduled. Patient then presented to the emergency room. Brain MRI with and without contrast showed acute to subacute infarct in the left temporal and parietal lobes. Imaging also suggests moderate chronic microvascular ischemic changes, no intracranial hemorrhage. On my examination, patient was status post 1 mg of Ativan for sedation for MRI. Review of systems and history very limited due to her somnolence subsequently. History provided by review of outpatient records as well as patient's son Luis Dickinson at the bedside. He says she has not been able to form her words or make any sense today. On review of outpatient records, patient was seen earlier today and there was no mention of speech deficit. Her speech deficit seems to have progressed within a few hours upon presenting to the emergency room. PMH 1. GERD 2. Anxiety 3. Coronary artery disease, status post stents to RCA and LAD 4. Chronic pain 5. Intolerant of statins including atorvastatin, pravastatin, Crestor, Zetia. 6. Not on Plavix due to side effect of bruising 7. Hypertension 8. Hypercholesterolemia, LDL over 200 9. History of tobacco use PSH 1. Cardiac cath 2. 3. Cholecystectomy 4. Hysterectomy Social history: Owns her own business. Lives alone. Has a son Luis Dickinson who lives 45 minutes away, 2 other children in [place] and [place]. Former smoker, no alcohol or drug use. Allergies Allergy/AdvReac Type Severity Reaction Status Date / Time clopidogrel Allergy Unknown BRUISING Verified 03/19/18 16:04 codeine Allergy Unknown CODEINE Verified 03/19/18 16:04 DERIVATIVES-CODED AFTER TAKING-VERY LOW BP,PASSING latex Allergy Unknown SWELLING Verified 03/19/18 16:04 AT SITE OF CONTACT Mexmbox-[id number] Reductase Allergy Unknown MUSCLE Verified 03/19/18 16:04 Inhibitor ACHES analgesics AdvReac Hypotension Uncoded 03/19/18 16:04 Home Medications Home Medications Medication Instructions Recorded Confirmed Type acetaminophen [Tylenol Extra 1,000 mg PO Q6 PRN 03/19/18 03/20/18 History Strength] albuterol sulfate 1 - 2 puff INHALATION Q6H PRN 03/19/18 03/20/18 History aspirin [Aspir-81] 81 mg PO DAILY 03/19/18 03/20/18 History atenolol 100 mg PO DAILY 03/19/18 03/20/18 History biotin 1 mg PO DAILY 03/19/18 03/20/18 History cholecalciferol (vitamin D3) 5,000 unit PO DAILY 03/19/18 03/20/18 History cinnamon bark [Cinnamon] 1,000 mg PO DAILY 03/19/18 03/20/18 History clonidine HCl 0.1 mg PO UD PRN 03/19/18 03/20/18 History coenzyme Q10 [CoQ-10] 100 mg PO DAILY 03/19/18 03/20/18 History cyanocobalamin (vitamin B-12) 100 mcg PO DAILY 03/19/18 03/20/18 History diclofenac sodium 2 g TOPICAL UD PRN 03/19/18 03/20/18 History duloxetine 40 mg PO DAILY 03/19/18 03/20/18 History fenofibrate nanocrystallized 48 mg PO HS 03/19/18 03/20/18 History lisinopril 20 mg PO DAILY 03/19/18 03/20/18 History lorazepam 0.5 mg PO TID PRN 03/19/18 03/20/18 History meclizine 25 mg PO TID PRN 03/19/18 03/20/18 History multivitamin 1 tab PO DAILY 03/19/18 03/20/18 History nitroglycerin 0.4 mg SUBLINGUAL UD 03/19/18 03/20/18 History nystatin [Nystop] 1 applic TOPICAL UD PRN 03/19/18 03/20/18 History ondansetron HCl 4 mg PO Q6 PRN 03/19/18 03/20/18 History pantoprazole 40 mg PO BID 03/19/18 03/20/18 History Past Med/Surg History Medical History Heart attack (Acute) Anxiety (Chronic) Family History Other Cancer Diabetes Heart disease Hypertension Social History Current Living Situation: Alone Feels Safe at Home: Yes Safety Concerns: Feels Safe At This Time Smoking Status: Unknown if ever smoked Beliefs That Will Affect Care: None Preferred Language: [place] Review of Systems Unobtainable due to cognitive status (Status post Ativan sedation for imaging, somnolent.) Physical Exam 2 Vital Signs (Past 24 Hours): Last Vital Signs Temp 36.6 C 03/20/18 18:53 Pulse 67 03/20/18 22:50 Resp 16 03/20/18 22:50 BP 152/82 H 03/20/18 22:50 Pulse Ox 97 03/20/18 22:50 Physical Exam: Vitals noted as above and within normal limits with the exception of hypertension. GENERAL: Somnolent but arousable, , , and , nontoxic-appearing, in no distress HENT: , atraumatic. . Mucus membranes appear moist. Right facial droop present. EYES: Normal conjunctiva. Sclera non-icteric. Prefers rightward gaze.. NECK: Supple. Full range of motion. No JVD RESPIRATORY: Clear to auscultation. Normal work of breathing. CARDIAC: Regular rate, normal rhythm. Extremities warm and well perfused, 2+ radial pulses bilaterally; 2+ posterior tibialis pulses bilaterally. ABDOMEN: Soft, non-distended. No tenderness to palpation in all four quadrants. No rebound or guarding. No masses. Bowel sounds are normal. LOWER EXTREMITIES: Inspection of calves reveal equal size bilaterally. They are non-tender. Trace edema. No discoloration. NEURO: Mental status is somnolent but arousable, can follow directions but is also very sleepy. Musculoskeletal: Right facial droop noted, symmetric strength in upper and lower extremities.. Sensation in tact. CN II-XII grossly in tact with the exception of right facial droop.. Dysarthria present SKIN: Rash not present. No jaundice noted. Significant lesions not present. PSYCH: Sedated. Exam as done by Charissa Manriquez MD, Timber Management Technician. Results & Data Laboratory Results 03/20/18 03/20/18 03/20/18 Range/Units 20:30 19:55 19:55 WBC 8.48 (4.8-10.8) K/uL RBC 4.68 (4.2-5.4) M/uL Hgb 13.1 (12.0-16.0) g/dL Hct 40.5 (37-47) % MCV 86.5 (80-100) fL MCH 28.0 (25-34) pg MCHC 32.3 (32-36) g/dL RDW Std Deviation 42.7 (36.4-46.3) fL RDW Coeff of Joni 13.6 (11.5-14.5) % Plt Count 323 (130-400) K/uL MPV 10.0 (7.4-10.4) fL Immature Gran % (Auto) 0.2 % Neut % (Auto) 62.7 % Lymph % (Auto) 30.8 % Kerr % (Auto) 5.3 % Eos % (Auto) 0.6 % Baso % (Auto) 0.4 % Immature Gran # (Auto) 0.02 (0.00-0.02) K/uL Neut # (Auto) 5.32 (1.4-6.5) K/uL Lymph # (Auto) 2.61 (1.2-3.4) K/uL Kerr # (Auto) 0.45 (0.11-0.59) K/uL Eos # (Auto) 0.05 (0-0.5) K/uL Baso # (Auto) 0.03 (0-0.2) K/uL Sodium 139 (136-145) mmol/L Potassium 4.2 (3.5-5.1) mmol/L Chloride 106 (98-107) mmol/L Carbon Dioxide 27 (21-32) mmol/L Anion Gap 6.0 (3-11) BUN 20 H (7-18) mg/dl Creatinine 0.90 (0.6-1.2) mg/dl Est Cr Clr Drug Dosing 61.2 ml/min Est GFR ( Amer) 76.7 Est GFR (Non-Af Amer) 66.2 BUN/Creatinine Ratio 21.8 H (10-20) Glucose 101 H (70-99) mg/dl POC Glucose 109 H (70-99) Calcium 9.1 (8.5-10.1) mg/dl Total Bilirubin 0.4 (0.2-1) mg/dl AST 17 (15-37) U/L ALT 29 (12-78) U/L Alkaline Phosphatase 95 (45-117) U/L Troponin I < 0.015 (0-0.045) ng/ml Total Protein 7.6 (6.4-8.2) gm/dl Albumin 3.6 (3.4-5.0) gm/dl Globulin 4.0 (2.5-4.0) gm/dl Albumin/Globulin Ratio 0.9 (0.9-2) TSH 1.610 (0.300-4.500) uIu/ml Diagnostic Findings MR brain wo/w con HISTORY: 67 years-old Female dysarthria, word finding difficulty, fall on Satur acute strokelike symptoms COMPARISON: CT head 03/19/2018, MRI brain 08/20/2015 TECHNIQUE: Multiplanar multisequence MRI of the brain was obtained both with and without the use of 7 mL Gadavist FINDINGS: Visual Effects Editor localizer images demonstrate no gross extracranial abnormality. The midline structures including the corpus callosum, brainstem, optic chiasm, pituitary and pineal glands appear unremarkable the sagittal T1 series. No cerebellar tonsillar herniation. Degenerative changes about the cervical spine noted. There are multiple subcentimeter foci of restricted diffusion about the watershed distribution of the left centrum semiovale and subcortical white matter of the left parietal and temporal lobes measuring up to 4 mm demonstrating intermediate to low signal on the ADC map and intermediate slightly increased signal on the T2/FLAIR series compatible with areas of acute to subacute infarction. No large acute territorial infarct identified. Right cerebral hemisphere appears unremarkable. Single focus of slightly increased diffusion-weighted signal about the right frontal lobe on image 12 series 5 is favored be artifactual. Study is motion degraded. No acute intracranial hemorrhage, midline shift, abnormal extra axial collections, hydrocephalus or intracranial mass. Mild age- related involutional changes. Moderate T2/FLAIR hyperintensities about the white matter are suggestive of chronic microvascular ischemic changes. No pathologic blooming artifact on the T2 star series. There is no abnormal intra- axial or extra-axial enhancement identified. A normal right vertebral artery flow-void is not seen and may be secondary to hypoplastic or chronically occluded vessel. The remaining flow voids appear unremarkable. Orbits are unremarkable. Mastoid air cells are clear. Mild mucosal thickening about the ethmoid air cells. The skull and soft tissues are unremarkable. IMPRESSION: 1. Multiple subcentimeter foci of restricted diffusion about the watershed distribution of the left centrum semiovale and subcortical white matter of the left parietal and temporal lobes are compatible with areas of acute to subacute infarction. 2. No significant cytotoxic edema, midline shift or intracranial hemorrhage. 3. Suggestion of moderate chronic microvascular ischemic changes. 4. No abnormal enhancement. 5. Motion degraded exam. The above report was generated using voice recognition software. It may contain grammatical, syntax or spelling errors. Electronically signed by: Jeremy Pelaez M.D. 03/20/2018 9:32 PM Medications Administered Gadobutrol, Ativan, aspirin 324 mg p.o. ECG Additional Comments: Sinus rhythm, no prolonged QT or ischemic changes. Code Status & VTE Plan Code Status Full code, as confirmed by patient's son VTE Prophylaxis Plan VTE Prophylaxis will be ordered: Yes Supervising Physician Co-Signing Physician Notes Attending addendum: I have physically seen this patient, have supervised the medical residents activities, and agree with the H&P unless as otherwise noted. Assessment and Plan: Multiple subcentimeter areas of acute to subacute infarction of the left parietal and temporal lobes, as noted on MRI of brain with and without contrast. Follow-up CTA of head and neck shows high-grade stenosis or critical occlusion of M1 branch of left MCA, felt to be possible source of above stroke. Patient is well outside time interval for intervention. Symptoms have been ongoing for 4 days. She has been able to tolerate aspirin, which she was on as an outpatient, but has been intolerant of clopidogrel and all statins. Ischemic stroke without TPA protocol started. NPO Order complete echocardiogram. Consult PT/OT/social human services assistants/neurology. Discussed with Dr. Cabral, main additional treatment option is retry clopidogrel, or change to aggrenox. Resident Activity Tracking Resident Involvement: Resident Care Provided Care Provided: [facility] Medicine _ (1) CVA (cerebral vascular accident) CVA mechanism: unspecified Laterality of affected vessel: Precerebral and cerebral artery: Qualified Code(s): I63.9 - Cerebral infarction, unspecified
[2018-03-21] MEDS ORDERED: OPTIRAY 320 125ml IV PRN (01:29)
[2018-03-21] MEDS ORDERED: cloNIDine HCl 0.1 MG TAB PO PRN (02:16)
[2018-03-21] MEDS ORDERED: PHARMACIST DISCHARGE MED REC CONSULT PRN (02:16)
[2018-03-21] MEDS ORDERED: ONDANSETRON 4 MG TAB PO PRN (02:16)
[2018-03-21] MEDS ORDERED: NITROGLYCERIN SL 0.4 MG/TAB TAB SL SCH (02:16)
[2018-03-21] MEDS ORDERED: LORazepam 0.5 MG TAB PO PRN (02:16)
[2018-03-21] MEDS ORDERED: METOPROLOL TARTRATE 1 MG/ML VIAL IV PRN (03:03)
[2018-03-21] MEDS: SODIUM CHLORIDE 0.9% 1000ML 1,000 ML IV SCH ×2 (03:08→15:59)
[2018-03-21] MEDS: ENOXAPARIN INJ 30 MG/0.3 ML SYR SQ SCH ×2 (06:08→18:32)
[2018-03-21] MEDS ORDERED: PNEUMOCOCCAL POLYSACCHARIDES 25 MCG/0.5 ML VIAL/SYR IM ONE (06:30)
[2018-03-21] MEDS ORDERED: PNEUMOCOCCAL ADMINISTRATION CHARGE ONE (06:30)
--- NOTE | 2018-03-21 06:59 | CT Scan Report ---
CTA ANGIOGRAPHY OF THE HEAD CLINICAL HISTORY: Cerebrovascular accident. COMPARISON STUDY: Head CT March 19, 2018 and MRI of the brain March 20, 2018. TECHNIQUE: Helical axial images of the head were obtained following uneventful intravenous administr ation of 119 cc of Optiray 320. Automated exposure control was utilized for the study. A dose lower ing technique was utilized adhering to the principles of ALARA. CT DOSE: 558.86 mGy.cm FINDINGS: Please note that the CTA of the neck will be reported separately. No acute intracranial hem orrhage, midline shift or mass effect is present. Ventricular system is normal. The basilar cisterns are patent. There are no extra-axial collections. There is severe stenosis versus short segment occlu blu of the M1 segment of the left middle cerebral artery shown on axial image 50 of 125. There is re constitution of the MCA distally as well as patent sylvian branches of the left middle cerebral arter y. The intracranial portion of the right vertebral artery is not visualized. The right vertebral joseph ry on the CTA of the neck is diminutive. The findings likely reflect a hypoplastic vertebral artery. The right M1 and M2 segments are patent. No additional stenoses are identified. There is no intracran ial aneurysm. IMPRESSION: 1. Short segment occlusion versus severe stenosis of the M1 segment of the left middle cerebral arter y with distal reconstitution. 2. 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 3. No intracranial aneurysm. Electronically signed by: Lucio Orozco M.D. 03/21/2018 6:57 AM
[2018-03-21 07:00] LABS: Basophils # (auto) 0.03 K/uL (0-0.2); Basophils % (auto) 0.5 %; Eosinophils # (auto) 0.05 K/uL (0-0.5); Eosinophils % (auto) 0.8 %; Hematocrit (blood only) 39.2 % (37-47); Immature Granulocytes # (auto) 0.01 K/uL (0.00-0.02); Immature Granulocytes % (auto) 0.2 %; Lymphocytes % (auto) 30.9 %; Mean Corpuscular Hgb Conc 33.2 g/dL (32-36); Mean Corpuscular Volume 86.5 fL (80-100); Mean Platelet Volume 9.4 fL (7.4-10.4); Monocytes # (auto) 0.36 K/uL (0.11-0.59); Monocytes % (auto) 5.9 %; Neutrophils % (auto) 61.7 %; Platelet Count 248 K/uL (130-400); RDW Coefficient of Variation 13.4 % (11.5-14.5); RDW Standard Deviation 42.4 fL (36.4-46.3); Red Blood Count 4.53 M/uL (4.2-5.4); White Blood Count 6.15 K/uL (4.8-10.8)
--- NOTE | 2018-03-21 07:03 | CT Scan Report ---
CT angio neck with con HISTORY: Mental status change CVA TECHNIQUE: Multiaxial CT angiography of the neck was performed IV contrast: 50 cc All measurem ents were calculated based on NASCET criteria. Maximum intensity projection images were also obtaine d. A dose lowering technique was utilized adhering to the principles of ALARA. COMPARISON STUDY: None. FINDINGS: The aortic arch and proximal great vessels are widely patent. There is no significant sten osis, occlusion, or dissection identified within the bilateral common carotid, internal carotid, or l eft vertebral artery. Left vertebral artery is dominant. The proximal to mid right vertebral artery i s small in caliber possibly a congenital basis. Appears to be occlusion at its distal aspect of uncer tain etiology. His note is made of a high-grade stenosis of the proximal left middle cerebral artery. IMPRESSION: 1. No significant stenosis of the carotid system. 2. 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 3. High-grade stenosis proximal left middle cerebral artery. The above report was generated using voice recognition software. It may contain grammatical, syntax or spelling errors. Electronically signed by: Flip Beckwith M.D. 03/21/2018 7:02 AM
[2018-03-21 07:11] LABS: Prothrombin Time 10.2 Seconds (9.0-12.0)
[2018-03-21 07:16] LABS: Estimated Average Glucose 126 mg/dl
[2018-03-21 07:29] LABS: BUN Creatinine Ratio 21.5 (10-20); Calcium 8.6 mg/dl (8.5-10.1); Est GFR (African American) 95.6; Est GFR (Non-African American) 82.5; Potassium 3.8 mmol/L (3.5-5.1)
--- NOTE | 2018-03-21 09:47 | Neurology Consultation ---
Date of Consultation March 21, 2018 Assessment & Plan (1) CVA (cerebral vascular accident): This is a 67-year-old right-handed female who presents with subacute symptoms of mixed expressive and receptive aphasia after syncopal episode 4 days ago. Residual neurological deficits include mixed aphasia and a mild right lower facial droop. Stroke etiology may be secondary to large vessel atherosclerotic disease, but considering that she does have signs of moderate subcortical ischemic changes bilaterally on imaging, and had an episode of syncope 4 days ago, need to rule out cardiac arrhythmias causing cardioembolic thrombus. Known stroke risk factors include hypertension and uncontrolled dyslipidemia. Recommendations: Recommend initiating Plavix for secondary stroke prevention in the setting large vessel atherosclerotic disease. Discontinue aspirin 1 week after Plavix initiation. I am aware that she has been noted to have a Plavix intolerance in the past with noted bruising. It is unclear how severe this intolerance is. If the patient does have severe bleeding and bruising on Plavix, can try Aggrenox. Recommend starting low-dose pravastatin. Aware that she has been noted to have myalgias with multiple statin medications in the past. Unclear if this is dose dependent or not. Overall it would be beneficial from a stroke prevention standpoint to at least be on a low dose statin medication rather than no statin medication. Recommend trying co-Q10 supplement to see if this would prevent myalgias while taking statin medication. Follow-up echocardiogram results to rule out cardioembolic sources for stroke. If no arrhythmias are detected in hospital, recommend a 30-day cardiac event monitor as an outpatient to rule out cardiac arrhythmias and A. fib (especially since 1 of her initial symptoms was syncope.) Follow-up PT/OT and speech therapies for discharge planning. Blood pressure recommendations while in hospital 175/95-150/80 (MAPS 90-110) Avoid hypotension and dehydration Stroke risk factor modifications and recommendations: Blood pressure recommendations for the first month post hospital discharge 150/ 90-130/80, and after that blood pressure recommendations 130/80-110/70 Total cholesterol goal 100- 200 and LDL goal less than 100 Hemoglobin A1c goal less than 7 (at goal) Encourage cardiovascular exercise at least 3 times a week for 30 minutes. Follow-up in neurology clinic in 1 month for post stroke hospital follow-up. If there is any questions or concerns, feel free to call/page me. History of Present Illness Reason for Consultation: Consultation for stroke Attending Physician: Tommy Fleming DO History of Present Illness This is a 67-year-old right-handed female who presents with a history of speech changes and trouble getting her words out. Reportedly 4 days ago she had some sort of syncopal or near syncopal event with noted nonspecific weakness and word finding issues afterwards. She was seen in the emergency room with workup and was recommended an MRI of the brain, but declined at the time and followed up with her primary care physician as an outpatient. Ended up going back to the emergency room on the day of admission, although the patient has a difficult time telling me specifically why she returned back to the emergency room. History is somewhat limited from the patient due to mixed aphasia. Patient denied any side effects to statin medications stating that it was not necessary. In addition also denied any side effects to Plavix. Uncertain if this is true or if there is a lack of understanding. Outpatient chart was reviewed and per her outpatient chart there is noted to be intolerance to Plavix with bruising (not sure how bad) and reported statin intolerance to simvastatin, atorvastatin, pravastatin, Crestor, and Zetia with arthralgias and myalgias. According to the patient when she was never on dual antiplatelet with aspirin and Plavix. Does not sound like she is ever tried co-Q10 to avoid myalgias with statin medication. MRI of the brain report and images were reviewed by myself. There is multi small subacute ischemic infarcts in the left centrum semi-ovale and subcortical white matter of the left parietal and temporal lobes. In addition there is noted to be moderate chronic subcortical white matter ischemic changes bilaterally. CTA of the head and neck showed a high-grade stenosis versus occlusion of the left M1 MCA In addition there is also noted to be a distal high-grade stenosis or occlusion of the right vertebral. Total cholesterol 312, LDL 215, HDL 42, triglycerides 274, hemoglobin A1c 6.0 Past medical history significant for CAD, dyslipidemia, hypertension and anxiety Family history is unremarkable. Patient denies any strokes or heart attacks at a young age. Social history: Patient is normally independent her activities of daily living. Former tobacco use. No regular alcohol or illegal drug use. Allergies Allergy/AdvReac Type Severity Reaction Status Date / Time clopidogrel Allergy Unknown BRUISING Verified 03/19/18 16:04 codeine Allergy Unknown CODEINE Verified 03/19/18 16:04 DERIVATIVES-CODED AFTER TAKING-VERY LOW BP,PASSING latex Allergy Unknown SWELLING Verified 03/19/18 16:04 AT SITE OF CONTACT [facility] Reductase Allergy Unknown MUSCLE Verified 03/19/18 16:04 Inhibitor ACHES analgesics AdvReac Hypotension Uncoded 03/19/18 16:04 Home Medications Home Medications Medication Instructions Recorded Confirmed Type acetaminophen [Tylenol Extra 1,000 mg PO Q6 PRN 03/19/18 03/20/18 History Strength] albuterol sulfate 1 - 2 puff INHALATION Q6H PRN 03/19/18 03/20/18 History aspirin [Aspir-81] 81 mg PO DAILY 03/19/18 03/20/18 History atenolol 100 mg PO DAILY 03/19/18 03/20/18 History biotin 1 mg PO DAILY 03/19/18 03/20/18 History cholecalciferol (vitamin D3) 5,000 unit PO DAILY 03/19/18 03/20/18 History cinnamon bark [Cinnamon] 1,000 mg PO DAILY 03/19/18 03/20/18 History clonidine HCl 0.1 mg PO UD PRN 03/19/18 03/20/18 History coenzyme Q10 [CoQ-10] 100 mg PO DAILY 03/19/18 03/20/18 History cyanocobalamin (vitamin B-12) 100 mcg PO DAILY 03/19/18 03/20/18 History diclofenac sodium 2 g TOPICAL UD PRN 03/19/18 03/20/18 History duloxetine 40 mg PO DAILY 03/19/18 03/20/18 History fenofibrate nanocrystallized 48 mg PO HS 03/19/18 03/20/18 History lisinopril 20 mg PO DAILY 03/19/18 03/20/18 History lorazepam 0.5 mg PO TID PRN 03/19/18 03/20/18 History meclizine 25 mg PO TID PRN 03/19/18 03/20/18 History multivitamin 1 tab PO DAILY 03/19/18 03/20/18 History nitroglycerin 0.4 mg SUBLINGUAL UD 03/19/18 03/20/18 History nystatin [Nystop] 1 applic TOPICAL UD PRN 03/19/18 03/20/18 History ondansetron HCl 4 mg PO Q6 PRN 03/19/18 03/20/18 History pantoprazole 40 mg PO BID 03/19/18 03/20/18 History Patient History Medical History Heart attack (Acute) Anxiety (Chronic) Family History Other Cancer Diabetes Heart disease Hypertension Social History Current Living Situation: Alone Feels Safe at Home: Yes Safety Concerns: Feels Safe At This Time Smoking Status: Unknown if ever smoked Beliefs That Will Affect Care: None Preferred Language: Italian Review of Systems Complete review of systems otherwise negative except for the above-noted in HPI Physical Exam 2 Vital Signs (Past 24 Hours): Last Vital Signs Temp 36.8 C 03/21/18 07:00 Pulse 65 03/21/18 07:00 Resp 16 03/21/18 07:00 BP 164/75 H 03/21/18 07:00 Pulse Ox 97 03/21/18 07:00 Physical Exam: Gen.: Patient is alert and oriented in no acute distress lying in bed Heart: Regular rate and rhythm Extremities: No gross deformities or rashes noted Neurological examination: Mental status: Patient is alert and oriented to person place and time. Able to give own history, but history is significantly limited by mixed aphasia. Not adequately able to assess fund of knowledge and short-term and long-term memory due to language barriers. Attention and concentration was normal for the situation. Speech was noted to have mixed expressive greater than receptive aphasia Cranial nerves: Visual zuniga intact to confrontation. Funduscopic examination was difficult to visualize but otherwise unremarkable and no signs of papilledema. Pupils equally round and reactive to light. Extraocular muscles intact without nystagmus. Mild right lower facial droop. Facial sensation intact. Tongue midline. Good palatal elevation. Good shoulder shrug bilaterally. Hearing grossly intact voice. Strength: Strength 5/5 both proximally distally in lower extremities. Patient did not give full effort with upper extremities but appeared to be full in bilateral upper extremities.Tone is normal. Sensation: Grossly intact to light touch in all extremities Deep tendon reflexes: +2 in bilateral biceps and patellar. Toes are upgoing to plantar stimulation on the right Coordination: Patient has good finger to nose without dysmetria. Station within the bed is normal. _ (1) CVA (cerebral vascular accident) CVA mechanism: unspecified Laterality of affected vessel: Precerebral and cerebral artery: Qualified Code(s): I63.9 - Cerebral infarction, unspecified
[2018-03-21] MEDS: DULOXETINE HCL 20 MG CAP PO SCH (10:05)
[2018-03-21] MEDS: ASPIRIN 81 MG ECTAB PO SCH (10:05)
[2018-03-21] MEDS: MULTIVITAMIN TAB PO SCH (10:05)
[2018-03-21] MEDS: PANTOprazole 40 MG TAB PO SCH ×2 (10:06→20:27)
[2018-03-21] MEDS: ATENOLOL 50 MG TABLET PO SCH (10:06)
[2018-03-21] MEDS: LISINOPRIL 20 MG TAB PO SCH (10:06)
--- NOTE | 2018-03-21 11:14 | Family Medicine Progress Note ---
Date of Service March 21, 2018 Assessment & Plan (1) CVA (cerebral vascular accident): 67-year-old female here with PMH HLD, CAD s/p stents x2, HTN, allergy to plavix and statins who presented with a L sided MCA stroke 4 days after symptoms started. Has more of an expressive aphasia. Cerebrovascular accident no tPA- outside window -PT/OT (recommend inpt rehab), speech therapy. Appreciate recs -Echo- showed mild MR, EF 60-65%, no interatrial shunt. No evidence of cardioembolic source. -lipids: total chol= 312, XEM=717, wnxylckmbcbve=107, A1c=6.0 -Neuro recs: Appreciated. Will start PO Plavix and Pravastatin in AM once speech evaluates. "Recommend initiating Plavix for secondary stroke prevention in the setting large vessel atherosclerotic disease. Discontinue aspirin 1 week after Plavix initiation. I am aware that she has been noted to have a Plavix intolerance in the past with noted bruising. It is unclear how severe this intolerance is. If the patient does have severe bleeding and bruising on Plavix, can try Aggrenox. Recommend starting low-dose pravastatin. Aware that she has been noted to have myalgias with multiple statin medications in the past. Unclear if this is dose dependent or not. Overall it would be beneficial from a stroke prevention standpoint to at least be on a low dose statin medication rather than no statin medication. Recommend trying co-Q10 supplement to see if this would prevent myalgias while taking statin medication. Follow-up echocardiogram results to rule out cardioembolic sources for stroke. If no arrhythmias are detected in hospital, recommend a 30-day cardiac event monitor as an outpatient to rule out cardiac arrhythmias and A. fib (especially since 1 of her initial symptoms was syncope.) Follow-up PT/OT and speech therapies for discharge planning. Blood pressure recommendations while in hospital 175/95-150/80 (MAPS 90-110) Avoid hypotension and dehydration Stroke risk factor modifications and recommendations: Blood pressure recommendations for the first month post hospital discharge 150/ 90-130/80, and after that blood pressure recommendations 130/80-110/70 Total cholesterol goal 100- 200 and LDL goal less than 100 Hemoglobin A1c goal less than 7 (at goal) Encourage cardiovascular exercise at least 3 times a week for 30 minutes. Follow-up in neurology clinic in 1 month for post stroke hospital follow-up." FEN/GI: N.p.o. until speech can evaluate DVT ppx: Lovenox every 12 CODE STATUS: Full code, as confirmed with patient's son DISPO: Telemetry Other ongoing medical problems CAD, hyperlipidemia, status post 2 stents RCA and LAD, intolerant of statins and Plavix, hypercholesterolemia -This certainly presents a difficult situation with regard to risk prevention -Currently on fenofibrate 48 mg p.o. at bedtime, lisinopril 20 mg daily, atenolol 100 mg daily, aspirin 81 mg daily Anxiety Continue home p.o. meds when cleared by speech -Duloxetine, lorazepam 0.5 mg p.o. 3 times daily GERD -Pantoprazole 40 mg p.o. twice daily (2) CAD (coronary artery disease): (3) Hypercholesterolemia with LDL greater than 190 mg/dL: (4) Benign essential hypertension: (5) Statin intolerance: (6) History of coronary artery stent placement: (7) Anxiety: (8) Dysarthria as late effect of cerebrovascular accident (CVA): Supervising Physician Co-Signing Physician Notes I personally examined the patient and verified all olmos points of history and exam, discussed case, and agree with decision making with Dr Tapia. Seems to be frustrated. Communication is quite difficult due to her aphasia. She seems to understand as I am talking with her, but she has hard time discussing back with me. She does seem to relate that she has failed both Lipitor and Crestor due to muscle aches, although it is difficult to discern exactly what the story is with those. When discussing statins she does get a frustrated glare across her face. Vitals noted, in general she is resting in bed quietly no distress. She does have focal neurologic deficits as outlined above and most notably a fairly significant expressive aphasia. It is hard to tell how much of her receptive a aphasia may or may not be there as well, given her fairly dense difficulty with getting words out, but it seems to be predominantly expressive if not entirely expressive. CVAappears to be due to MCA stenosis and/or thrombosissecondary risk reduction as best as possible. Tried to revisit the possibility of a higher potency statin, as the best patient is able to communicate these are not options , so agree with neurology on utilizing pravastatin for at least a degree of statin related benefit with less risk of myalgias. We will need to follow this closely. Continue antiplatelets, blood pressure control. Work towards rehab, hopefully tomorrow Subjective Pt was able to understand but had difficulty expressing herself. Was able to state her name but appeared to not know where she was as she responded yes both times to being asked whether she was at home or in the hospital. However was able to follow commands. Review of Systems Unobtainable due to mental health condition Physical Exam 2 Vital Signs (Past 24 Hours): Last Vital Signs Temp 36.8 C 03/21/18 07:00 Pulse 65 03/21/18 07:00 Resp 16 03/21/18 07:00 BP 164/75 H 03/21/18 07:00 Pulse Ox 95 03/21/18 10:56 General: Alert, orientedx1. No acute distress HEENT: NC/AT, PERRL, EOMI, oropharynx moist. Chest: Nontender to palpation. CV: RRR, Normal s1, s2. No murmurs appreciated Resp: Breath sounds clear bilaterally, no increased effort of breathing. No crackles/rhonchi/rales. Abdomen: BS+. Soft, nontender, nondistended. No guarding. No organomegaly appreciated. Extremities: No edema. Neuro: CN II-XII grossly intact, strength equal 5/5 in upper and lower extremities bilaterally. Results & Data Laboratory Results Laboratory Results - last 24 hr 03/20/18 03/20/18 03/20/18 19:55 19:55 20:30 WBC 8.48 RBC 4.68 Hgb 13.1 Hct 40.5 MCV 86.5 MCH 28.0 MCHC 32.3 RDW Std Deviation 42.7 RDW Coeff of Joni 13.6 Plt Count 323 MPV 10.0 Immature Gran % (Auto) 0.2 Neut % (Auto) 62.7 Lymph % (Auto) 30.8 [place] % (Auto) 5.3 Eos % (Auto) 0.6 Baso % (Auto) 0.4 Immature Gran # (Auto) 0.02 Neut # (Auto) 5.32 Lymph # (Auto) 2.61 [place] # (Auto) 0.45 Eos # (Auto) 0.05 Baso # (Auto) 0.03 PT INR Sodium 139 Potassium 4.2 Chloride 106 Carbon Dioxide 27 Anion Gap 6.0 BUN 20 H Creatinine 0.90 Est Cr Clr Drug Dosing 61.2 Est GFR ( Amer) 76.7 Est GFR (Non-Af Amer) 66.2 BUN/Creatinine Ratio 21.8 H Glucose 101 H POC Glucose 109 H Estimat Average Glucose Hemoglobin A1c Calcium 9.1 Total Bilirubin 0.4 AST 17 ALT 29 Alkaline Phosphatase 95 Troponin I < 0.015 Total Protein 7.6 Albumin 3.6 Globulin 4.0 Albumin/Globulin Ratio 0.9 Triglycerides Cholesterol LDL Cholesterol, Calc VLDL Cholesterol, Calc HDL Cholesterol Cholesterol/HDL Ratio TSH 1.610 03/21/18 03/21/18 03/21/18 06:47 06:47 06:47 WBC 6.15 RBC 4.53 Hgb 13.0 Hct 39.2 MCV 86.5 MCH 28.7 MCHC 33.2 RDW Std Deviation 42.4 RDW Coeff of Joni 13.4 Plt Count 248 MPV 9.4 Immature Gran % (Auto) 0.2 Neut % (Auto) 61.7 Lymph % (Auto) 30.9 [place] % (Auto) 5.9 Eos % (Auto) 0.8 Baso % (Auto) 0.5 Immature Gran # (Auto) 0.01 Neut # (Auto) 3.80 Lymph # (Auto) 1.90 [place] # (Auto) 0.36 Eos # (Auto) 0.05 Baso # (Auto) 0.03 PT INR Sodium 140 Potassium 3.8 Chloride 108 H Carbon Dioxide 24 Anion Gap 8.0 BUN 16 Creatinine 0.75 Est Cr Clr Drug Dosing 84.0 Est GFR ( Amer) 95.6 Est GFR (Non-Af Amer) 82.5 BUN/Creatinine Ratio 21.5 H Glucose 116 H POC Glucose Estimat Average Glucose 126 Hemoglobin A1c 6.0 H Calcium 8.6 Total Bilirubin AST ALT Alkaline Phosphatase Troponin I Total Protein Albumin Globulin Albumin/Globulin Ratio Triglycerides 274 H Cholesterol 312 H LDL Cholesterol, Calc 215 VLDL Cholesterol, Calc 55 HDL Cholesterol 42 Cholesterol/HDL Ratio 7 TSH 03/21/18 06:47 WBC RBC Hgb Hct MCV MCH MCHC RDW Std Deviation RDW Coeff of Joni Plt Count MPV Immature Gran % (Auto) Neut % (Auto) Lymph % (Auto) [place] % (Auto) Eos % (Auto) Baso % (Auto) Immature Gran # (Auto) Neut # (Auto) Lymph # (Auto) [place] # (Auto) Eos # (Auto) Baso # (Auto) PT 10.2 INR 1.0 Sodium Potassium Chloride Carbon Dioxide Anion Gap BUN Creatinine Est Cr Clr Drug Dosing Est GFR ( Amer) Est GFR (Non-Af Amer) BUN/Creatinine Ratio Glucose POC Glucose Estimat Average Glucose Hemoglobin A1c Calcium Total Bilirubin AST ALT Alkaline Phosphatase Troponin I Total Protein Albumin Globulin Albumin/Globulin Ratio Triglycerides Cholesterol LDL Cholesterol, Calc VLDL Cholesterol, Calc HDL Cholesterol Cholesterol/HDL Ratio TSH Medications Administered Home Medications acetaminophen [Tylenol Extra Strength] 1,000 mg PO Q6 PRN 03/19/18 [History Confirmed 03/20/18] albuterol sulfate 1 - 2 puff INHALATION Q6H PRN 03/19/18 [History Confirmed 06/02] aspirin [Aspir-81] 81 mg PO DAILY 03/19/18 [History Confirmed 03/20/18] atenolol 100 mg PO DAILY 03/19/18 [History Confirmed 03/20/18] biotin 1 mg PO DAILY 03/19/18 [History Confirmed 03/20/18] cholecalciferol (vitamin D3) 5,000 unit PO DAILY 03/19/18 [History Confirmed 06/02] cinnamon bark [Cinnamon] 1,000 mg PO DAILY 03/19/18 [History Confirmed 03/20/18] clonidine HCl 0.1 mg PO UD PRN 03/19/18 [History Confirmed 03/20/18] coenzyme Q10 [CoQ-10] 100 mg PO DAILY 03/19/18 [History Confirmed 03/20/18] cyanocobalamin (vitamin B-12) 100 mcg PO DAILY 03/19/18 [History Confirmed 03/20] diclofenac sodium 2 g TOPICAL UD PRN 03/19/18 [History Confirmed 03/20/18] duloxetine 40 mg PO DAILY 03/19/18 [History Confirmed 03/20/18] fenofibrate nanocrystallized 48 mg PO HS 03/19/18 [History Confirmed 03/20/18] lisinopril 20 mg PO DAILY 03/19/18 [History Confirmed 03/20/18] lorazepam 0.5 mg PO TID PRN 03/19/18 [History Confirmed 03/20/18] meclizine 25 mg PO TID PRN 03/19/18 [History Confirmed 03/20/18] multivitamin 1 tab PO DAILY 03/19/18 [History Confirmed 03/20/18] nitroglycerin 0.4 mg SUBLINGUAL UD 03/19/18 [History Confirmed 03/20/18] nystatin [Nystop] 1 applic TOPICAL UD PRN 03/19/18 [History Confirmed 03/20/18] ondansetron HCl 4 mg PO Q6 PRN 03/19/18 [History Confirmed 03/20/18] pantoprazole 40 mg PO BID 03/19/18 [History Confirmed 03/20/18] Active Medications Aspirin (Ecotrin Ectab) 81 mg PO DAILY [place] Stop: 04/20/18 08:59 Last Admin: 03/21/18 10:05 Dose: Not Given Atenolol (Tenormin) 100 mg PO DAILY [place] Stop: 04/20/18 08:59 Last Admin: 03/21/18 10:06 Dose: Not Given Duloxetine HCl (Cymbalta) 40 mg PO DAILY [place] Stop: 04/20/18 08:59 Last Admin: 03/21/18 10:05 Dose: Not Given Enoxaparin Sodium (Lovenox) 30 mg SQ Q12H [place] Stop: 04/20/18 05:59 Last Admin: 03/21/18 06:08 Dose: 30 mg Fenofibrate (Fenofibrate) 48 mg PO HS [place] Stop: 04/20/18 20:59 Gadobutrol (Gadavist 65ml) 7 ml IV ONCE PRN PRN Reason: Interaction Checking Stop: 03/24/18 21:17 Last Admin: 03/20/18 21:19 Dose: 7 ml Lorazepam (Ativan) 1 mg in 2 mls @ 2 mls/min IV ONE PRN PRN Reason: Anxiety Stop: 04/19/18 20:06 Sodium Chloride (Nss 1000ml) 1,000 mls @ 80 mls/hr IV .[id number] [place] Stop: 03/22/18 02:15 Last Admin: 03/21/18 15:59 Dose: 80 mls/hr Ioversol (Optiray 320 125ml) 125 ml IV ONCE PRN PRN Reason: Interaction Checking Stop: 03/25/18 01:28 Last Admin: 03/21/18 01:29 Dose: 119 ml Lisinopril (Zestril) 20 mg PO DAILY [place] Stop: 04/20/18 08:59 Last Admin: 03/21/18 10:06 Dose: Not Given Lorazepam (Ativan) 0.5 mg PO TID PRN PRN Reason: Anxiety Stop: 04/20/18 02:15 Metoprolol Tartrate (Lopressor) 5 mg IV Q4 PRN PRN Reason: HYPERTENSION Stop: 04/20/18 03:59 Miscellaneous Information (Pharmacist Discharge Med Rec Consult) 1 ea N/A UD PRN PRN Reason: Consult Stop: 04/20/18 02:15 Multivitamins (Multivitamin Tab) 1 tab PO DAILY [facility] Stop: 04/20/18 08:59 Last Admin: 03/21/18 10:05 Dose: Not Given Nitroglycerin (Nitrostat) 0.4 mg SL UD [facility] Stop: 04/20/18 02:15 Ondansetron HCl (Zofran) 4 mg PO Q6 PRN PRN Reason: Nausea Stop: 04/20/18 02:15 Pantoprazole Sodium (Protonix) 40 mg PO BID [facility] Stop: 04/20/18 08:59 Last Admin: 03/21/18 10:06 Dose: Not Given Resident Activity Tracking Resident Involvement: Resident Care Provided Care Provided: [facility] Medicine _ (1) CVA (cerebral vascular accident) CVA mechanism: unspecified Laterality of affected vessel: Precerebral and cerebral artery: Qualified Code(s): I63.9 - Cerebral infarction, unspecified
--- NOTE | 2018-03-21 16:05 | Emergency Department Note ---
Entered by Domo Samson acting as a scribe for Rayshawn Ochoa MD History of Present Illness General Chief complaint: Stroke/CVA Symptoms Stated complaint: SLURRED VOICE, WEAK Time Seen by Provider: 03/20/18 19:43 Source: patient and family History of Present Illness Onset (ago): day(s) (past couple) Location: head (confusion) Pain Consistency: + other (persistent) Quality: + other (confusion) Associated symptoms: + other (difficulty concentrating, trouble finding words); no chest pain, no fever/chills and no shortness of breath The patient is a 67 year old white female with a history of OK and HTN who presents to the Emergency Room with complaints of persistent confusion in the past couple of days. The patient reports I feel tired and fuzzy, and I dont know what to say is wrong. She notes difficulty concentrating, trouble finding words, and family states that the patient was unable to tell the current year. She denies fever, chills, hematuria, hematochezia, coughing, chest pain, shortness of breath, recent surgery, or history of stroke. She states that she has been taking her medications as prescribed. She notes that two days ago she fell and loss consciousness for a couple of hours, and she is unsure if she struck her head. She reports that she was evaluated in the ER yesterday for the same symptoms. Review of records shows that the patient was seen yesterday by Dr. Guerra. Her EKG was unremarkable. The x-ray of the right elbow, x-ray of the right shoulder, CT of the cervical spine, CT of the head, and urinalysis were all negative. The patients TSH, kidney function, white count, and H&H were all normal. Home Medications Home Medications Medication Instructions Recorded Confirmed Type acetaminophen [Tylenol Extra 1,000 mg PO Q6 PRN 03/19/18 03/20/18 History Strength] albuterol sulfate 1 - 2 puff INHALATION Q6H PRN 03/19/18 03/20/18 History aspirin [Aspir-81] 81 mg PO DAILY 03/19/18 03/20/18 History atenolol 100 mg PO DAILY 03/19/18 03/20/18 History biotin 1 mg PO DAILY 03/19/18 03/20/18 History cholecalciferol (vitamin D3) 5,000 unit PO DAILY 03/19/18 03/20/18 History cinnamon bark [Cinnamon] 1,000 mg PO DAILY 03/19/18 03/20/18 History clonidine HCl 0.1 mg PO UD PRN 03/19/18 03/20/18 History coenzyme Q10 [CoQ-10] 100 mg PO DAILY 03/19/18 03/20/18 History cyanocobalamin (vitamin B-12) 100 mcg PO DAILY 03/19/18 03/20/18 History diclofenac sodium 2 g TOPICAL UD PRN 03/19/18 03/20/18 History duloxetine 40 mg PO DAILY 03/19/18 03/20/18 History fenofibrate nanocrystallized 48 mg PO HS 03/19/18 03/20/18 History lisinopril 20 mg PO DAILY 03/19/18 03/20/18 History lorazepam 0.5 mg PO TID PRN 03/19/18 03/20/18 History meclizine 25 mg PO TID PRN 03/19/18 03/20/18 History multivitamin 1 tab PO DAILY 03/19/18 03/20/18 History nitroglycerin 0.4 mg SUBLINGUAL UD 03/19/18 03/20/18 History nystatin [Nystop] 1 applic TOPICAL UD PRN 03/19/18 03/20/18 History ondansetron HCl 4 mg PO Q6 PRN 03/19/18 03/20/18 History pantoprazole 40 mg PO BID 03/19/18 03/20/18 History Allergies Allergy/AdvReac Type Severity Reaction Status Date / Time clopidogrel Allergy Unknown BRUISING Verified 03/19/18 16:04 codeine Allergy Unknown CODEINE Verified 03/19/18 16:04 DERIVATIVES-CODED AFTER TAKING-VERY LOW BP,PASSING latex Allergy Unknown SWELLING Verified 03/19/18 16:04 AT SITE OF CONTACT Klcrulm-Fqy-Vno Reductase Allergy Unknown MUSCLE Verified 03/19/18 16:04 Inhibitor ACHES analgesics AdvReac Hypotension Uncoded 03/19/18 16:04 Past Med/Surg History Medical History Heart attack (Acute) Anxiety (Chronic) Family History Other Cancer Diabetes Heart disease Hypertension Social History marital status: Current Living Situation: Alone Feels Safe at Home: Yes Safety Concerns: Feels Safe At This Time Smoking Status: Unknown if ever smoked Beliefs That Will Affect Care: None Communication Ability: Impaired Review of Systems See HPI for pertinent positives & negatives. and A total of 10 systems reviewed and were otherwise negative Physical Exam Vital Signs Vital Signs - 24 hr 03/20/18 18:53 03/20/18 20:00 03/20/18 20:24 Temperature 36.6 C Temperature Source Oral Sepsis Recent Fever Within 48 Hours No Sepsis Action Taken by Nursing No Action Required Pulse Rate 69 Pulse Rate [Apical] 68 Pulse Rhythm [Apical] Pulse Strength [Apical] Respiratory Rate 20 18 Respiratory Effort / Characteristics Non-Labored Spontaneous Respiratory Depth Normal Respiratory Pattern Blood Pressure - Lying Blood Pressure 195/113 H Blood Pressure [Left Arm] Blood Pressure [Right Arm] 173/119 H Blood Pressure Mean 140 Blood Pressure Mean [Left Arm] Blood Pressure Mean [Right Arm] 137 Blood Pressure Position Sitting Blood Pressure Position [Left Arm] Blood Pressure Position [Right Arm] Pulse Oximetry 98 97 97 Pulse Oximetry [Post Treatment/Recovery] Oxygen Delivery Method Room Air Room Air Room Air Oxygen Flow Rate [Post Treatment/Recovery] 03/20/18 21:16 03/20/18 22:50 03/20/18 23:30 Temperature Temperature Source Sepsis Recent Fever Within 48 Hours Sepsis Action Taken by Nursing Pulse Rate Pulse Rate [Apical] 68 67 73 Pulse Rhythm [Apical] Pulse Strength [Apical] Respiratory Rate 16 16 18 Respiratory Effort / Characteristics Respiratory Depth Normal Respiratory Pattern Blood Pressure - Lying Blood Pressure Blood Pressure [Left Arm] Blood Pressure [Right Arm] 136/72 152/82 H 168/98 H Blood Pressure Mean Blood Pressure Mean [Left Arm] Blood Pressure Mean [Right Arm] 93 105 121 Blood Pressure Position Blood Pressure Position [Left Arm] Blood Pressure Position [Right Arm] Pulse Oximetry 93 97 96 Pulse Oximetry [Post Treatment/Recovery] Oxygen Delivery Method Room Air Room Air Room Air Oxygen Flow Rate [Post Treatment/Recovery] 03/21/18 00:00 03/21/18 01:00 03/21/18 01:28 Temperature Temperature Source Sepsis Recent Fever Within 48 Hours Sepsis Action Taken by Nursing Pulse Rate Pulse Rate [Apical] 60 61 65 Pulse Rhythm [Apical] Regular Pulse Strength [Apical] Normal Respiratory Rate 16 16 20 Respiratory Effort / Characteristics Non-Labored Spontaneous Respiratory Depth Normal Respiratory Pattern Agonal Blood Pressure - Lying Blood Pressure Blood Pressure [Left Arm] Blood Pressure [Right Arm] 161/89 H 167/93 H 174/91 H Blood Pressure Mean Blood Pressure Mean [Left Arm] Blood Pressure Mean [Right Arm] 113 117 118 Blood Pressure Position Blood Pressure Position [Left Arm] Blood Pressure Position [Right Arm] Sitting Pulse Oximetry 94 93 98 Pulse Oximetry [Post Treatment/Recovery] Oxygen Delivery Method Room Air Room Air Oxygen Flow Rate [Post Treatment/Recovery] 03/21/18 01:55 03/21/18 02:00 03/21/18 02:58 Temperature 37.1 C Temperature Source Oral Sepsis Recent Fever Within 48 Hours Sepsis Action Taken by Nursing Pulse Rate 57 L Pulse Rate [Apical] 68 Pulse Rhythm [Apical] Pulse Strength [Apical] Respiratory Rate 18 Respiratory Effort / Characteristics Non-Labored Spontaneous Respiratory Depth Respiratory Pattern Regular Blood Pressure - Lying Blood Pressure Blood Pressure [Left Arm] Blood Pressure [Right Arm] 183/88 H Blood Pressure Mean Blood Pressure Mean [Left Arm] Blood Pressure Mean [Right Arm] 119 Blood Pressure Position Blood Pressure Position [Left Arm] Blood Pressure Position [Right Arm] Lying Pulse Oximetry 96 Pulse Oximetry [Post Treatment/Recovery] Oxygen Delivery Method Room Air Room Air Oxygen Flow Rate [Post Treatment/Recovery] 03/21/18 03:14 03/21/18 07:00 03/21/18 08:00 Temperature 36.8 C Temperature Source Oral Sepsis Recent Fever Within 48 Hours Sepsis Action Taken by Nursing Pulse Rate 60 Pulse Rate [Apical] 59 L 65 Pulse Rhythm [Apical] Pulse Strength [Apical] Respiratory Rate 18 16 Respiratory Effort / Characteristics Non-Labored Spontaneous Respiratory Depth Normal Respiratory Pattern Blood Pressure - Lying Blood Pressure Blood Pressure [Left Arm] Blood Pressure [Right Arm] 164/84 H 164/75 H Blood Pressure Mean Blood Pressure Mean [Left Arm] Blood Pressure Mean [Right Arm] 110 104 Blood Pressure Position Blood Pressure Position [Left Arm] Blood Pressure Position [Right Arm] Lying Pulse Oximetry 96 97 Pulse Oximetry [Post Treatment/Recovery] Oxygen Delivery Method Room Air Nasal Cannula Oxygen Flow Rate [Post Treatment/Recovery] 03/21/18 10:56 03/21/18 12:04 03/21/18 15:06 Temperature 37.1 C 36.8 C Temperature Source Oral Oral Sepsis Recent Fever Within 48 Hours Sepsis Action Taken by Nursing Pulse Rate Pulse Rate [Apical] 65 68 Pulse Rhythm [Apical] Pulse Strength [Apical] Respiratory Rate 19 16 Respiratory Effort / Characteristics Respiratory Depth Respiratory Pattern Blood Pressure - Lying 178/92 H Blood Pressure Blood Pressure [Left Arm] 172/84 H Blood Pressure [Right Arm] 164/87 H Blood Pressure Mean Blood Pressure Mean [Left Arm] 113 Blood Pressure Mean [Right Arm] 112 Blood Pressure Position Blood Pressure Position [Left Arm] Semi-fowlers Blood Pressure Position [Right Arm] Sitting Pulse Oximetry 91 95 Pulse Oximetry [Post Treatment/Recovery] 95 Oxygen Delivery Method Room Air Room Air Oxygen Flow Rate [Post Treatment/Recovery] 0 GENERAL: Well appearing, well nourished, NAD, non-toxic, wearing glasses. EYE EXAM: Normal conjunctiva. PERRL, no anisocoria and EOM's grossly intact w/o pain. OROPHARYNX: No exudate, posterior pharynx is clear, no tonsillar/uvular deviation or swelling. NECK: Supple, no nuchal rigidity, no adenopathy, non-tender. No signs of meningismus. LUNGS: Clear to auscultation bilaterally. Normal chest wall mechanics. HEART: NSR, no MRG. ABDOMEN: Abdomen soft, non-tender, normo-active bowel sounds, no masses, no rebound or guarding. BACK: No CVA TTP. SKIN: No rashes and no bruising. UPPER EXTREMITIES: Upper extremities are grossly normal. LOWER EXTREMITIES: No pitting edema. No calf pain. NEURO EXAM: Cranial nerves II-XII grossly intact, mild dysarthria, occasionally takes time to speak, 5/5 strength in b/l upper and lower extremities, moves all 4 extremities without issue on command. Course 195: Past medical records reviewed. The patient was evaluated in room C3, and a complete history and physical examination were performed. 2240: I updated the patient's family on results. 2244: Dr. Hunter [facility] Hospitalist has been notified of the patient and will reevaluate her for hospitalization. 2353: I spoke to Dr. Hunter, who is evaluating the patient. Administered Medications Aspirin (Ecotrin Ectab) 81 mg PO DAILY [place] Stop: 04/20/18 08:59 Last Admin: 03/21/18 10:05 Dose: Not Given Atenolol (Tenormin) 100 mg PO DAILY [place] Stop: 04/20/18 08:59 Last Admin: 03/21/18 10:06 Dose: Not Given Duloxetine HCl (Cymbalta) 40 mg PO DAILY [place] Stop: 04/20/18 08:59 Last Admin: 03/21/18 10:05 Dose: Not Given Enoxaparin Sodium (Lovenox) 30 mg SQ Q12H [place] Stop: 04/20/18 05:59 Last Admin: 03/21/18 06:08 Dose: 30 mg Gadobutrol (Gadavist 65ml) 7 ml IV ONCE PRN PRN Reason: Interaction Checking Stop: 03/24/18 21:17 Last Admin: 03/20/18 21:19 Dose: 7 ml Sodium Chloride (Nss 1000ml) 1,000 mls @ 80 mls/hr IV .[id number] [facility] Stop: 03/22/18 02:15 Last Admin: 03/21/18 15:59 Dose: 80 mls/hr Infusion: 03/21/18 15:38 Dose: 80 mls/hr Admin: 03/21/18 03:08 Dose: 80 mls/hr Ioversol (Optiray 320 125ml) 125 ml IV ONCE PRN PRN Reason: Interaction Checking Stop: 03/25/18 01:28 Last Admin: 03/21/18 01:29 Dose: 119 ml Lisinopril (Zestril) 20 mg PO DAILY [place] Stop: 04/20/18 08:59 Last Admin: 03/21/18 10:06 Dose: Not Given Multivitamins (Multivitamin Tab) 1 tab PO DAILY [place] Stop: 04/20/18 08:59 Last Admin: 03/21/18 10:05 Dose: Not Given Pantoprazole Sodium (Protonix) 40 mg PO BID [place] Stop: 04/20/18 08:59 Last Admin: 03/21/18 10:06 Dose: Not Given Discontinued Medications Aspirin (Aspirin) 324 mg PO NOW STA Stop: 03/20/18 22:13 Last Admin: 03/20/18 22:54 Dose: 324 mg Lorazepam (Ativan) 1 mg in 2 mls @ 2 mls/min IV NOW STA Stop: 03/20/18 20:08 Last Admin: 03/20/18 20:28 Dose: 2 mls/min Medical Decision Making Medical Records Attestation: I reviewed the patient's medical records. Home Medications Current Medication List: was personally reviewed by me Laboratory Data Attestation: I reviewed the patient's lab results. Result diagrams: 03/21/18 06:47 03/21/18 06:47 Lab Results 03/20/18 03/20/18 03/20/18 Range/Units 19:55 19:55 20:30 WBC 8.48 (4.8-10.8) K/uL RBC 4.68 (4.2-5.4) M/uL Hgb 13.1 (12.0-16.0) g/dL Hct 40.5 (37-47) % MCV 86.5 (80-100) fL MCH 28.0 (25-34) pg MCHC 32.3 (32-36) g/dL RDW Std Deviation 42.7 (36.4-46.3) fL RDW Coeff of Joni 13.6 (11.5-14.5) % Plt Count 323 (130-400) K/uL MPV 10.0 (7.4-10.4) fL Immature Gran % (Auto) 0.2 % Neut % (Auto) 62.7 % Lymph % (Auto) 30.8 % [place]kin % (Auto) 5.3 % Eos % (Auto) 0.6 % Baso % (Auto) 0.4 % Immature Gran # (Auto) 0.02 (0.00-0.02) K/uL Neut # (Auto) 5.32 (1.4-6.5) K/uL Lymph # (Auto) 2.61 (1.2-3.4) K/uL [place]kin # (Auto) 0.45 (0.11-0.59) K/uL Eos # (Auto) 0.05 (0-0.5) K/uL Baso # (Auto) 0.03 (0-0.2) K/uL PT (9.0-12.0) Seconds INR (0.9-1.1) Sodium 139 (136-145) mmol/L Potassium 4.2 (3.5-5.1) mmol/L Chloride 106 (98-107) mmol/L Carbon Dioxide 27 (21-32) mmol/L Anion Gap 6.0 (3-11) BUN 20 H (7-18) mg/dl Creatinine 0.90 (0.6-1.2) mg/dl Est Cr Clr Drug Dosing 61.2 ml/min Est GFR ( Amer) 76.7 Est GFR (Non-Af Amer) 66.2 BUN/Creatinine Ratio 21.8 H (10-20) Glucose 101 H (70-99) mg/dl POC Glucose 109 H (70-99) Estimat Average Glucose mg/dl Hemoglobin A1c (4.5-5.6) % Calcium 9.1 (8.5-10.1) mg/dl Total Bilirubin 0.4 (0.2-1) mg/dl AST 17 (15-37) U/L ALT 29 (12-78) U/L Alkaline Phosphatase 95 (45-117) U/L Troponin I < 0.015 (0-0.045) ng/ml Total Protein 7.6 (6.4-8.2) gm/dl Albumin 3.6 (3.4-5.0) gm/dl Globulin 4.0 (2.5-4.0) gm/dl Albumin/Globulin Ratio 0.9 (0.9-2) Triglycerides (0-150) mg/dl Cholesterol (0-200) mg/dl LDL Cholesterol, Calc mg/dl VLDL Cholesterol, Calc mg/dl HDL Cholesterol mg/dl Cholesterol/HDL Ratio TSH 1.610 (0.300-4.500) uIu/ml 03/21/18 03/21/18 03/21/18 Range/Units 06:47 06:47 06:47 WBC 6.15 (4.8-10.8) K/uL RBC 4.53 (4.2-5.4) M/uL Hgb 13.0 (12.0-16.0) g/dL Hct 39.2 (37-47) % MCV 86.5 (80-100) fL MCH 28.7 (25-34) pg MCHC 33.2 (32-36) g/dL RDW Std Deviation 42.4 (36.4-46.3) fL RDW Coeff of Joni 13.4 (11.5-14.5) % Plt Count 248 (130-400) K/uL MPV 9.4 (7.4-10.4) fL Immature Gran % (Auto) 0.2 % Neut % (Auto) 61.7 % Lymph % (Auto) 30.9 % [place] % (Auto) 5.9 % Eos % (Auto) 0.8 % Baso % (Auto) 0.5 % Immature Gran # (Auto) 0.01 (0.00-0.02) K/uL Neut # (Auto) 3.80 (1.4-6.5) K/uL Lymph # (Auto) 1.90 (1.2-3.4) K/uL [place]kin # (Auto) 0.36 (0.11-0.59) K/uL Eos # (Auto) 0.05 (0-0.5) K/uL Baso # (Auto) 0.03 (0-0.2) K/uL PT (9.0-12.0) Seconds INR (0.9-1.1) Sodium 140 (136-145) mmol/L Potassium 3.8 (3.5-5.1) mmol/L Chloride 108 H (98-107) mmol/L Carbon Dioxide 24 (21-32) mmol/L Anion Gap 8.0 (3-11) BUN 16 (7-18) mg/dl Creatinine 0.75 (0.6-1.2) mg/dl Est Cr Clr Drug Dosing 84.0 ml/min Est GFR ( Amer) 95.6 Est GFR (Non-Af Amer) 82.5 BUN/Creatinine Ratio 21.5 H (10-20) Glucose 116 H (70-99) mg/dl POC Glucose (70-99) Estimat Average Glucose 126 mg/dl Hemoglobin A1c 6.0 H (4.5-5.6) % Calcium 8.6 (8.5-10.1) mg/dl Total Bilirubin (0.2-1) mg/dl AST (15-37) U/L ALT (12-78) U/L Alkaline Phosphatase (45-117) U/L Troponin I (0-0.045) ng/ml Total Protein (6.4-8.2) gm/dl Albumin (3.4-5.0) gm/dl Globulin (2.5-4.0) gm/dl Albumin/Globulin Ratio (0.9-2) Triglycerides 274 H (0-150) mg/dl Cholesterol 312 H (0-200) mg/dl LDL Cholesterol, Calc 215 mg/dl VLDL Cholesterol, Calc 55 mg/dl HDL Cholesterol 42 mg/dl Cholesterol/HDL Ratio 7 TSH (0.300-4.500) uIu/ml 03/21/18 Range/Units 06:47 WBC (4.8-10.8) K/uL RBC (4.2-5.4) M/uL Hgb (12.0-16.0) g/dL Hct (37-47) % MCV (80-100) fL MCH (25-34) pg MCHC (32-36) g/dL RDW Std Deviation (36.4-46.3) fL RDW Coeff of Joni (11.5-14.5) % Plt Count (130-400) K/uL MPV (7.4-10.4) fL Immature Gran % (Auto) % Neut % (Auto) % Lymph % (Auto) % [place] % (Auto) % Eos % (Auto) % Baso % (Auto) % Immature Gran # (Auto) (0.00-0.02) K/uL Neut # (Auto) (1.4-6.5) K/uL Lymph # (Auto) (1.2-3.4) K/uL [place] # (Auto) (0.11-0.59) K/uL Eos # (Auto) (0-0.5) K/uL Baso # (Auto) (0-0.2) K/uL PT 10.2 (9.0-12.0) Seconds INR 1.0 (0.9-1.1) Sodium (136-145) mmol/L Potassium (3.5-5.1) mmol/L Chloride (98-107) mmol/L Carbon Dioxide (21-32) mmol/L Anion Gap (3-11) BUN (7-18) mg/dl Creatinine (0.6-1.2) mg/dl Est Cr Clr Drug Dosing ml/min Est GFR ( Amer) Est GFR (Non-Af Amer) BUN/Creatinine Ratio (10-20) Glucose (70-99) mg/dl POC Glucose (70-99) Estimat Average Glucose mg/dl Hemoglobin A1c (4.5-5.6) % Calcium (8.5-10.1) mg/dl Total Bilirubin (0.2-1) mg/dl AST (15-37) U/L ALT (12-78) U/L Alkaline Phosphatase (45-117) U/L Troponin I (0-0.045) ng/ml Total Protein (6.4-8.2) gm/dl Albumin (3.4-5.0) gm/dl Globulin (2.5-4.0) gm/dl Albumin/Globulin Ratio (0.9-2) Triglycerides (0-150) mg/dl Cholesterol (0-200) mg/dl LDL Cholesterol, Calc mg/dl VLDL Cholesterol, Calc mg/dl HDL Cholesterol mg/dl Cholesterol/HDL Ratio TSH (0.300-4.500) uIu/ml Imaging Data Radiologist's Impression: Radiology results as stated below per my review and the radiologist's interpretation: MR brain wo/w con HISTORY: 67 years-old Female dysarthria, word finding difficulty, fall on Satur acute strokelike symptoms COMPARISON: CT head 03/19/2018, MRI brain 08/20/2015 TECHNIQUE: Multiplanar multisequence MRI of the brain was obtained both with and without the use of 7 mL Gadavist FINDINGS: Licensed Retail Supervisor localizer images demonstrate no gross extracranial abnormality. The midline structures including the corpus callosum, brainstem, optic chiasm, pituitary and pineal glands appear unremarkable the sagittal T1 series. No cerebellar tonsillar herniation. Degenerative changes about the cervical spine noted. There are multiple subcentimeter foci of restricted diffusion about the watershed distribution of the left centrum semiovale and subcortical white matter of the left parietal and temporal lobes measuring up to 4 mm demonstrating intermediate to low signal on the ADC map and intermediate slightly increased signal on the T2/FLAIR series compatible with areas of acute to subacute infarction. No large acute territorial infarct identified. Right cerebral hemisphere appears unremarkable. Single focus of slightly increased diffusion-weighted signal about the right frontal lobe on image 12 series 5 is favored be artifactual. Study is motion degraded. No acute intracranial hemorrhage, midline shift, abnormal extra axial collections, hydrocephalus or intracranial mass. Mild age- related involutional changes. Moderate T2/FLAIR hyperintensities about the white matter are suggestive of chronic microvascular ischemic changes. No pathologic blooming artifact on the T2 star series. There is no abnormal intra- axial or extra-axial enhancement identified. A normal right vertebral artery flow-void is not seen and may be secondary to hypoplastic or chronically occluded vessel. The remaining flow voids appear unremarkable. Orbits are unremarkable. Mastoid air cells are clear. Mild mucosal thickening about the ethmoid air cells. The skull and soft tissues are unremarkable. IMPRESSION: 1. Multiple subcentimeter foci of restricted diffusion about the watershed distribution of the left centrum semiovale and subcortical white matter of the left parietal and temporal lobes are compatible with areas of acute to subacute infarction. 2. No significant cytotoxic edema, midline shift or intracranial hemorrhage. 3. Suggestion of moderate chronic microvascular ischemic changes. 4. No abnormal enhancement. 5. Motion degraded exam. The above report was generated using voice recognition software. It may contain grammatical, syntax or spelling errors. Electronically signed by: Jeremy Pelaez M.D. 03/20/2018 9:32 PM ECG Data Attestation: I personally reviewed and interpreted this ECG as follows: Indication: other (confusion) Rate (beats per minute): 62 Rhythm: normal sinus Findings: + other (normal intervals, normal axis) and + T-wave inversion (lead III) Comparison ECG Date: from (03/19/18) Change: the following changes noted (T-wave inversion is new from yesterday) Blood Pressure Blood Pressure Findings: Elevated blood pressure Blood Pressure Disposition: further management by hospitalist ANEUDY Narrative Prior records/ancillary studies reviewed. Triage nursing notes reviewed. The patient is a 67 year old white female with a history of OK and HTN who presents to the Emergency Room with complaints of persistent confusion in the past couple of days. Differential diagnosis: Etiologies such as metabolic, infection, hypoglycemia, electrolyte abnormalities , cardiac sources, intracerebral event, toxicologic, neurologic, as well as others were entertained. Patient was seen and evaluated the bedside. The patient did have a recent presentation here and had a fairly negative workup with negative blood work and imaging. Patient reportedly has had some persistent confusion on exam the patient does have some dysarthria and does have to think before speaking what appears to be a slightly delayed time. The patient did have an MRI. The patient's initial EKG given her heart disease showed a new T wave T wave inversion in lead concern for acute to subacute stroke. The patient was given full dose aspirin. I did relay the findings to the patient's family as well as the patient. The patient was subsequently admitted to the medicine service. Impression & Plan CVA (cerebral vascular accident) Discharge Plan Visit Data *Final* Discharge Date/Time: 03/21/18 01:55 Chief Complaint: Stroke/CVA Symptoms Stated Complaint: SLURRED VOICE, WEAK ED Provider: Rayshawn Ochoa Discharge Problem: CVA (cerebral vascular accident) Patient Disposition: Admitted As Inpatient Discharge Instructions Interventions: ED Discharge Assessment Last Done: 03/21/18 01:55 The scribe's documentation has been prepared under my direction and personally reviewed by me in its entirety. I confirm that the note above accurately reflects all work, treatment, procedures, and medical decision making performed by me.
[2018-03-21] MEDS ORDERED: FENOFIBRATE NANOCRYSTALLIZED 48 MG TABLET PO SCH (21:00)
[2018-03-22 07:01] LABS: Basophils # (auto) 0.02 K/uL (0-0.2); Basophils % (auto) 0.3 %; Eosinophils # (auto) 0.04 K/uL (0-0.5); Eosinophils % (auto) 0.6 %; Hematocrit (blood only) 39.9 % (37-47); Hemoglobin 13.3 g/dL (12.0-16.0); Immature Granulocytes # (auto) 0.01 K/uL (0.00-0.02); Immature Granulocytes % (auto) 0.2 %; Lymphocytes # (auto) 1.85 K/uL (1.2-3.4); Mean Corpuscular Hgb Conc 33.3 g/dL (32-36); Mean Corpuscular Volume 85.6 fL (80-100); Mean Platelet Volume 9.5 fL (7.4-10.4); Monocytes # (auto) 0.42 K/uL (0.11-0.59); Monocytes % (auto) 6.4 %; Neutrophils # (auto) 4.26 K/uL (1.4-6.5); Neutrophils % (auto) 64.5 %; Platelet Count 267 K/uL (130-400); RDW Coefficient of Variation 13.3 % (11.5-14.5); RDW Standard Deviation 41.4 fL (36.4-46.3); Red Blood Count 4.66 M/uL (4.2-5.4)
[2018-03-22 07:32] LABS: BUN Creatinine Ratio 21.7 (10-20); Calcium 8.3 mg/dl (8.5-10.1); Creatinine Clr Calc Pharmacy 100.4 ml/min; Est GFR (African American) 107.6; Est GFR (Non-African American) 92.8; Potassium 3.4 mmol/L (3.5-5.1)
[2018-03-22] MEDS: DULOXETINE HCL 20 MG CAP PO SCH (08:16)
[2018-03-22] MEDS: PANTOprazole 40 MG TAB PO SCH (08:16)
[2018-03-22] MEDS: ATENOLOL 50 MG TABLET PO SCH (08:16)
[2018-03-22] MEDS: ASPIRIN 81 MG ECTAB PO SCH (08:16)
[2018-03-22] MEDS: LISINOPRIL 20 MG TAB PO SCH (08:18)
[2018-03-22] MEDS: MULTIVITAMIN TAB PO SCH (08:18)
[2018-03-22] MEDS ORDERED: CLOPIDOGREL BISULFATE 75 MG TAB PO SCH (09:00)
[2018-03-22] MEDS ORDERED: ENOXAPARIN INJ 40 MG/0.4 ML SYR SQ SCH (09:00)
[2018-03-22 11:47] VITALS: PULSE 58; TEMP 97.9; O2SAT 94
--- NOTE | 2018-03-22 11:59 | Discharge Summary ---
Date of Service March 22, 2018 Admission HPI Per Admitting Provider 67-year-old female here with multiple neurological complaints starting 4 days ago with syncope at home, nonspecific weakness and difficulty finding her words. She was seen in the emergency room yesterday. A CT of the head without contrast showed no acute abnormalities. She did not present with any neurologic findings on exam. She was advised to proceed with MRI however patient declined and said she would go to her PCP to schedule as outpatient. Patient was seen for physical exam today in her PCP office. Imaging was scheduled. Patient then presented to the emergency room. Brain MRI with and without contrast showed acute to subacute infarct in the left temporal and parietal lobes. Imaging also suggests moderate chronic microvascular ischemic changes, no intracranial hemorrhage. On my examination, patient was status post 1 mg of Ativan for sedation for MRI. Review of systems and history very limited due to her somnolence subsequently. History provided by review of outpatient records as well as patient's son Luis Dickinson at the bedside. He says she has not been able to form her words or make any sense today. On review of outpatient records, patient was seen earlier today and there was no mention of speech deficit. Her speech deficit seems to have progressed within a few hours upon presenting to the emergency room. PMH 1. GERD 2. Anxiety 3. Coronary artery disease, status post stents to RCA and LAD 4. Chronic pain 5. Intolerant of statins including atorvastatin, pravastatin, Crestor, Zetia. 6. Not on Plavix due to side effect of bruising 7. Hypertension 8. Hypercholesterolemia, LDL over 200 9. History of tobacco use PSH 1. Cardiac cath 2. 3. Cholecystectomy 4. Hysterectomy Social history: Owns her own business. Lives alone. Has a son Luis Dickinson who lives 45 minutes away, 2 other children in [place] and [place]. Former smoker, no alcohol or drug use. Principal Diagnosis CVA Discharge Data Allergies Allergy/AdvReac Type Severity Reaction Status Date / Time clopidogrel Allergy Unknown BRUISING Verified 03/19/18 16:04 codeine Allergy Unknown CODEINE Verified 03/19/18 16:04 DERIVATIVES-CODED AFTER TAKING-VERY LOW BP,PASSING latex Allergy Unknown SWELLING Verified 03/19/18 16:04 AT SITE OF CONTACT [id number] Reductase Allergy Unknown MUSCLE Verified 03/19/18 16:04 Inhibitor ACHES analgesics AdvReac Hypotension Uncoded 03/19/18 16:04 Consultations 03/20/18 22:11 ED Decision to Admit Stat 03/21/18 02:16 Consult Case Management - Discharge Planning Routine Consult Neurology Routine Ordered Studies 03/20/18 20:02 MR brain wo/w con Stat 03/21/18 00:52 CT angio head w con Urgent CT angio neck with con Urgent Hospital Course (1) CVA (cerebral vascular accident): 67-year-old female here with PMH HLD, CAD s/p stents x2, HTN, allergy to plavix and statins who presented with a L sided MCA stroke 4 days after symptoms started. Has more of an expressive aphasia. Cerebrovascular accident no tPA- outside window -PT/OT (recommend inpt rehab), speech therapy. Appreciate recs -Echo- showed mild MR, EF 60-65%, no interatrial shunt. No evidence of cardioembolic source. -lipids: total chol= 312, WPX=420, ygnnbukhgwlfd=640, A1c=6.0 -Neuro recs: Appreciated. Will start PO Plavix and Pravastatin in AM once speech evaluates. "Recommend initiating Plavix for secondary stroke prevention in the setting large vessel atherosclerotic disease. Discontinue aspirin 1 week after Plavix initiation. I am aware that she has been noted to have a Plavix intolerance in the past with noted bruising. It is unclear how severe this intolerance is. If the patient does have severe bleeding and bruising on Plavix, can try Aggrenox. Recommend starting low-dose pravastatin. Aware that she has been noted to have myalgias with multiple statin medications in the past. Unclear if this is dose dependent or not. Overall it would be beneficial from a stroke prevention standpoint to at least be on a low dose statin medication rather than no statin medication. Recommend trying co-Q10 supplement to see if this would prevent myalgias while taking statin medication. Follow-up echocardiogram results to rule out cardioembolic sources for stroke. If no arrhythmias are detected in hospital, recommend a 30-day cardiac event monitor as an outpatient to rule out cardiac arrhythmias and A. fib (especially since 1 of her initial symptoms was syncope.) Follow-up PT/OT and speech therapies for discharge planning. Blood pressure recommendations while in hospital 175/95-150/80 (MAPS 90-110) Avoid hypotension and dehydration Stroke risk factor modifications and recommendations: Blood pressure recommendations for the first month post hospital discharge 150/ 90-130/80, and after that blood pressure recommendations 130/80-110/70 Total cholesterol goal 100- 200 and LDL goal less than 100 Hemoglobin A1c goal less than 7 (at goal) Encourage cardiovascular exercise at least 3 times a week for 30 minutes. Follow-up in neurology clinic in 1 month for post stroke hospital follow-up." FEN/GI: N.p.o. until speech can evaluate DVT ppx: Lovenox every 12 CODE STATUS: Full code, as confirmed with patient's son DISPO: Telemetry Other ongoing medical problems CAD, hyperlipidemia, status post 2 stents RCA and LAD, intolerant of statins and Plavix, hypercholesterolemia -This certainly presents a difficult situation with regard to risk prevention -Currently on fenofibrate 48 mg p.o. at bedtime, lisinopril 20 mg daily, atenolol 100 mg daily, aspirin 81 mg daily Anxiety Continue home p.o. meds when cleared by speech -Duloxetine, lorazepam 0.5 mg p.o. 3 times daily GERD -Pantoprazole 40 mg p.o. twice daily (2) CAD (coronary artery disease): (3) Hypercholesterolemia with LDL greater than 190 mg/dL: (4) Benign essential hypertension: (5) Statin intolerance: (6) History of coronary artery stent placement: (7) Anxiety: (8) Dysarthria as late effect of cerebrovascular accident (CVA): Total Time Total Time Spent Total Time Spent (In Minutes): <30 Discharge Plan Discharge Items Patient Disposition: Transfer Inpatient Rehab Fac Reason For Visit: CVA Discharge Diagnosis: CVA Discharge Goals: Improve function and Increase independence Activity: Resume your previous activity Activity Comment: As tolerated Non-emergency contact: Primary Care Provider and Therapist Call non-emergency contact if: you have any medication questions, your symptoms worsen and your pain is not controlled Diet: Heart Healthy Addtl Provider Instructions: You were admitted because you had a left sided stroke that resulted in symptoms that include primarily an inability to express yourself verbally. The workup done in the hospital did not determine what caused the blockage in your brain but it was certainly related to your history of high cholesterol in combination with your history of hypertension, previous heart attack and your inability to take statins and Plavix in the past. Due to the timing of presentation, there is not much that can be done to treat the stroke that already happened. We did physical and occupational therapy as well as speech therapy and evaluation to help you function and bring you as close to baseline as you can as a result of this stroke. However, in order to prevent additional strokes and additional loss of function, we recommend the followin. Please take your hypertension medications 2. Please take the Plavix, Pravastatin and Zedia and Coenzyme Q medications you are being discharged with. The Coenzyme Q should help with the adverse symtpoms that you previously experienced while on the statin. 3. Please followup with your primary care physician once out of outpatient rehab. Also please consider these additional instructions from the neurologist you saw while hospitalized: "Blood pressure recommendations for the first month post hospital discharge 150/ 90-130/80, and after that blood pressure recommendations 130/80-110/70 Total cholesterol goal 100- 200 and LDL goal less than 100 Hemoglobin A1c goal less than 7 (at goal) Encourage cardiovascular exercise at least 3 times a week for 30 minutes. Follow-up in neurology clinic in 1 month for post stroke hospital follow-up." Please go to the nearest emergency room with new onset changes in speech, facial droop, chest pain, shortness of breath or palpitations. Prescriptions: New pravastatin [Pravachol] 40 mg tablet 40 mg PO DAILY Qty: 60 RF: 0 clopidogrel [Plavix] 75 mg tablet 75 mg PO DAILY Qty: 60 RF: 0 ezetimibe 10 mg tablet 10 mg PO DAILY Qty: 60 RF: 0 Continue multivitamin Tablet 1 tab PO DAILY RF: 0 cyanocobalamin (vitamin B-12) 100 mcg Tablet 100 mcg PO DAILY RF: 0 atenolol 100 mg tablet 100 mg PO DAILY RF: 0 lisinopril 20 mg tablet 20 mg PO DAILY RF: 0 ondansetron HCl 4 mg tablet 4 mg PO Q6 PRN (Reason: Nausea) RF: 0 aspirin [Aspir-81] 81 mg Tablet,Delayed Release (Dr/Ec) 81 mg PO DAILY RF: 0 acetaminophen [Tylenol Extra Strength] 500 mg Tablet 1,000 mg PO Q6 PRN (Reason: Pain) RF: 0 lorazepam 0.5 mg Tablet 0.5 mg PO TID PRN (Reason: Anxiety) RF: 0 meclizine 25 mg tablet 25 mg PO TID PRN (Reason: Dizziness Or Vertigo) RF: 0 pantoprazole 40 mg tablet,delayed release (DR/EC) 40 mg PO BID RF: 0 nitroglycerin 0.4 mg Tablet, Sublingual 0.4 mg Sublingual UD RF: 0 nystatin 100,000 unit/gram powder 1 applic topical UD PRN (Reason: Skin Irritation) RF: 0 albuterol sulfate 90 mcg/actuation Hfa Aerosol Inhaler 1 - 2 puff INHALATION Q6H PRN (Reason: Shortness Of Breath Or Wheezing) RF: 0 coenzyme Q10 [CoQ-10] 100 mg Capsule 100 mg PO DAILY RF: 0 cinnamon bark [Cinnamon] 500 mg Capsule 1,000 mg PO DAILY RF: 0 duloxetine 20 mg capsule,delayed release(DR/EC) 40 mg PO DAILY RF: 0 biotin 1 mg Tablet 1 mg PO DAILY RF: 0 fenofibrate nanocrystallized 48 mg tablet 48 mg PO HS RF: 0 diclofenac sodium 1 % Gel 2 g TOPICAL UD PRN (Reason: Pain) RF: 0 cholecalciferol (vitamin D3) 5,000 unit Tablet 5,000 unit PO DAILY RF: 0 Discontinued clonidine HCl 0.1 mg Tablet 0.1 mg PO UD PRN (Reason: Hypertensive Emergency) RF: 0 Stand-Alone Forms: [facility], [facility] Discharge Orders: Discharge Order (Routine); Ordered 03/22/18 Ordered By: Tommy Fleming Skilled Items Patient informed of condition?: Yes DNR: No Discharge Level of Care: Acute rehab Communicable Disease: No Discharge Prognosis: Stable Admission Data Admit Date/Time: 03/21/18 00:52 Attending Provider: Tommy Fleming Admit Provider: Charissa Manrqiuez Primary Care Provider: Broderick Carmona V. Other Providers: Guilherme Hunter Leslie S. Service: Telemetry Other Interventions: Discharge Summary Assessment (RN) Last Done: 03/22/18 15:23 DC Date/Time DO NOT enter until pt leaves facility: 03/22/18 15:59 Supervising Physician Co-Signing Physician Notes I personally examined the patient and verified all olmos points of history and exam, discussed case, and agree with decision making with Dr Tapia. Ready for rehab, stable to go. In discussion with clinical pharmacist [place] is now back in guidelines for use in a situation where moderate to high potency statins are not tolerated. No other new complaints Vitals noted, in general she is resting in bed quietly no distress. She does have focal neurologic deficits as outlined above and most notably a fairly significant expressive aphasia. She does seem to be L to communicate a bit better than yesterday. No other new focal deficits noted CVAappears to be due to MCA stenosis and/or thrombosissecondary risk reduction as best as possible. Aggressive med management for blood pressure per stroke guidelines, lipids as best as possible given her limitations with adverse reactions, antiplatelets. Stable for rehab.
[2018-03-22] MEDS ORDERED: STROKE PATIENT DISCHARGE STA (13:16)
[2018-03-22 15:34] VITALS: BP 164/87
[2018-03-22] MEDS ORDERED: PRAVASTATIN SOD 40 MG TAB PO SCH (17:00)
== END 2018-03-22 15:59 | DRG 65 ==
LOC: ED 18:50 → 2S 03-21 00:52 → SUATTDRO 03-21 00:52 → 2S 03-21 01:55

== ENCOUNTER 2018-03-27 17:22 | Inpatient (IN) ==
--- NOTE | 2018-03-27 17:34 | CT Scan Report ---
CT SCAN OF THE BRAIN WITHOUT IV CONTRAST CLINICAL HISTORY: Strokelike symptoms. COMPARISON STUDY: CT of the brain dated 03/19/2018. MRI of the brain dated 03/20/2018. TECHNIQUE: Unenhanced axial CT scan of the brain is performed from the vertex to the skull base. A do se lowering technique was utilized adhering to the principles of ALARA. CT DOSE: 537.48 mGy.cm FINDINGS: Brain parenchyma: There is progressive low-attenuation throughout the left-sided subcortical and kiki ventricular white matter. This likely represents evolving infarction correlated with the 03/20/2018 MRI . There is no evidence of acute territorial ischemia by CT criteria. There is moderate patchy subcort ical and and periventricular microangiopathic change. There is no hemorrhage or mass effect. No extra -axial fluid collection is seen. Ventricles, sulci, cisterns: Prominent secondary to involutional change. Intracranial vasculature: There is atherosclerotic calcification of the cavernous carotid arteries. Calvarium: Unremarkable. Sinuses and mastoids: The visualized paranasal sinuses are clear. The mastoid air cells are well pneu matized. Orbits: The bony orbits are grossly intact. IMPRESSION: 1. There is no hemorrhage, mass effect, or evidence of acute territorial ischemia by CT criteria. 2. There is progressive low-attenuation throughout the left-sided subcortical and periventricular whi te matter. This likely represents evolving infarcts when correlated with recent prior examinations. Electronically signed by: Josue Corral M.D. 03/27/2018 5:33 PM
[2018-03-27 17:38] LABS: Basophils # (auto) 0.03 K/uL (0-0.2); Basophils % (auto) 0.3 %; Eosinophils # (auto) 0.04 K/uL (0-0.5); Eosinophils % (auto) 0.4 %; Hematocrit (blood only) 42.6 % (37-47); Immature Granulocytes # (auto) 0.02 K/uL (0.00-0.02); Immature Granulocytes % (auto) 0.2 %; Lymphocytes % (auto) 22.2 %; Mean Corpuscular Hgb Conc 32.9 g/dL (32-36); Mean Corpuscular Volume 85.7 fL (80-100); Mean Platelet Volume 10.6 fL (7.4-10.4); Monocytes # (auto) 0.56 K/uL (0.11-0.59); Monocytes % (auto) 5.6 %; Neutrophils # (auto) 7.07 K/uL (1.4-6.5); Neutrophils % (auto) 71.3 %; Platelet Count 286 K/uL (130-400); RDW Coefficient of Variation 13.3 % (11.5-14.5); RDW Standard Deviation 41.2 fL (36.4-46.3); Red Blood Count 4.97 M/uL (4.2-5.4); White Blood Count 9.92 K/uL (4.8-10.8)
[2018-03-27 17:49] LABS: INR 1.1 (0.9-1.1); Partial Thromboplastin Time 25.2 Seconds (21.0-31.0); Prothrombin Time 10.6 Seconds (9.0-12.0)
--- NOTE | 2018-03-27 18:04 | XRay Report ---
SINGLE VIEW CHEST CLINICAL HISTORY: Generalized weakness. FINDINGS: An AP, portable, upright chest radiograph is compared to study dated 03/19/2018. The heart is enlarged and there is atherosclerotic calcification of the thoracic aorta. The pulmonary vasculature is noncongested. Bibasilar atelectasis is observed. No airspace consolidation or large pleural effus ion is identified. No pneumothorax is seen. The skeletal structures are osteopenic. The bony thorax i s grossly intact. IMPRESSION: Cardiomegaly with no acute cardiopulmonary abnormality. Electronically signed by: Josue Corral M.D. 03/27/2018 6:02 PM
[2018-03-27 18:10] LABS: BUN Creatinine Ratio 24.9 (10-20); Blood Urea Nitrogen 21 mg/dl (7-18); Calcium 9.1 mg/dl (8.5-10.1); Carbon Dioxide 28 mmol/L (21-32); Chloride 108 mmol/L (98-107); Est GFR (African American) 84.6; Glucose 108 mg/dl (70-99); Magnesium 2.3 mg/dl (1.8-2.4); Sodium 140 mmol/L (136-145)
[2018-03-27 18:15] LABS: Troponin I < 0.015 ng/ml (0-0.045)
[2018-03-27] MEDS ORDERED: OPTIRAY 320 125ml IV PRN (18:22)
--- NOTE | 2018-03-27 18:26 | Emergency Department Note ---
Entered by Aneesh Joy acting as a scribe for Kyle Benedict DO History of Present Illness General Chief complaint: Stroke Alert Stated complaint: STROKE SX Source: EMS Limitations: clinical acuity History of Present Illness Provider complaint: Stroke/right weakness/speech aphasia Onset (ago): hour(s) Location: upper extremity, lower extremity and right Pain Consistency: + other (worsened) Quality: + other (weakness) Associated symptoms: + other (Abd Pain ); no headaches Treatments prior to arrival: other ([facility] rehabilitation ) This history is limited secondary to clinical acuity. The patient is a 67 year old female who presents to the Emergency Room with complaints of worsening stroke-like symptoms. The patient was seen here in the department on March 22 and diagnosed with a stroke. She was discharged to [facility]. EMS state that the patient was found to be worsening this afternoon. A timeline was difficult to obtain. The patient is currently denying any hallucinations, but does note some abdominal pain. [facility] was called and state that the patient was found at baseline 1100. The patient's family believed the patient to be worsening acutely at 1200 this afternoon, 5.5 hours ago. They state that the right sided weakness found on exam is new per family and [facility] staff. Home Medications Home Medications Medication Instructions Recorded Confirmed Type albuterol sulfate 1 - 2 puff INHALATION Q6H PRN 03/19/18 03/27/18 History aspirin [Aspir-81] 81 mg PO DAILY 03/19/18 03/27/18 History biotin 1 mg PO DAILY 03/19/18 03/27/18 History cholecalciferol (vitamin D3) 5,000 unit PO DAILY 03/19/18 03/27/18 History cinnamon bark [Cinnamon] 1,000 mg PO DAILY 03/19/18 03/27/18 History coenzyme Q10 [CoQ-10] 100 mg PO DAILY 03/19/18 03/27/18 History cyanocobalamin (vitamin B-12) 100 mcg PO DAILY 03/19/18 03/27/18 History diclofenac sodium 2 g TOPICAL UD PRN 03/19/18 03/27/18 History duloxetine 40 mg PO DAILY 03/19/18 03/27/18 History fenofibrate nanocrystallized 48 mg PO HS 03/19/18 03/27/18 History lorazepam 0.5 mg PO TID PRN 03/19/18 03/27/18 History meclizine 25 mg PO TID PRN 03/19/18 03/27/18 History multivitamin 1 tab PO DAILY 03/19/18 03/27/18 History nitroglycerin 0.4 mg SUBLINGUAL UD 03/19/18 03/27/18 History nystatin 1 applic TOPICAL UD PRN 03/19/18 03/27/18 History ondansetron HCl 4 mg PO Q6 PRN 03/19/18 03/27/18 History pantoprazole 40 mg PO BID 03/19/18 03/27/18 History clopidogrel [Plavix] 75 mg PO DAILY #60 tab 03/22/18 03/27/18 Rx ezetimibe 10 mg PO DAILY #60 tab 03/22/18 03/27/18 Rx pravastatin [Pravachol] 40 mg PO DAILY #60 tab 03/22/18 03/27/18 Rx acetaminophen [Tylenol] 650 mg PO Q4H PRN 03/27/18 03/27/18 History atenolol 25 mg PO DAILY 03/27/18 03/27/18 History bisacodyl 10 mg CO DAILY PRN 03/27/18 03/27/18 History clonidine HCl 0.1 mg PO BID 03/27/18 03/27/18 History docusate sodium 100 mg PO BID PRN 03/27/18 03/27/18 History enoxaparin 40 mg SUBCUT DAILY 03/27/18 03/27/18 History lisinopril 40 mg PO DAILY 03/27/18 03/27/18 History magnesium hydroxide [Milk Of 30 ml PO DAILY PRN 03/27/18 03/27/18 History Magnesia Concentrated] polyethylene glycol 3350 [Miralax] 17 g PO DAILY PRN 03/27/18 03/27/18 History sennosides-docusate sodium 1 tab PO .DAILY@LUNCH 03/27/18 03/27/18 History [Senokot-S] sodium phosphates [Fleet Enema] 118 ml CO DAILY PRN 03/27/18 03/27/18 History Allergies Allergy/AdvReac Type Severity Reaction Status Date / Time clopidogrel Allergy Unknown BRUISING Verified 03/19/18 16:04 codeine Allergy Unknown CODEINE Verified 03/19/18 16:04 DERIVATIVES-CODED AFTER TAKING-VERY LOW BP,PASSING latex Allergy Unknown SWELLING Verified 03/19/18 16:04 AT SITE OF CONTACT Ggmxhjj-Oko-Oan Reductase Allergy Unknown MUSCLE Verified 03/19/18 16:04 Inhibitor ACHES analgesics AdvReac Hypotension Uncoded 03/19/18 16:04 Past Med/Surg History Medical History Heart attack (Acute) Anxiety (Chronic) Family History Other Cancer Diabetes Heart disease Hypertension Social History marital status: Current Living Situation: Alone Feels Safe at Home: Yes Smoking Status: Unknown if ever smoked Beliefs That Will Affect Care: None Preferred Language: Hebrew Review of Systems See HPI for pertinent positives & negatives. and A total of 10 systems reviewed and were otherwise negative Physical Exam Vital Signs Vital Signs - 24 hr 03/27/18 17:38 03/27/18 17:45 03/27/18 17:46 Temperature 36.7 C Temperature Source Oral Sepsis Recent Fever Within 48 Hours No Sepsis New/Unexplained Change in Mental Status No Sepsis Action Taken by Nursing No Action Required Pulse Rate 57 L 58 L 57 L Pulse Rate [Right Finger] Pulse Rhythm Regular Pulse Rhythm [Right Finger] Pulse Strength Normal Pulse Strength [Right Finger] Respiratory Rate 24 Respiratory Effort / Characteristics Non-Labored Respiratory Depth Normal Respiratory Pattern Regular Blood Pressure 198/91 H Blood Pressure [Left Arm] Blood Pressure Mean 126 Blood Pressure Mean [Left Arm] Blood Pressure Position Lying Blood Pressure Position [Left Arm] Pulse Oximetry 94 94 95 Oxygen Delivery Method Room Air 03/27/18 18:29 03/27/18 18:30 03/27/18 18:31 Temperature Temperature Source Sepsis Recent Fever Within 48 Hours Sepsis New/Unexplained Change in Mental Status Sepsis Action Taken by Nursing Pulse Rate 60 63 Pulse Rate [Right Finger] 61 Pulse Rhythm Pulse Rhythm [Right Finger] Pulse Strength Pulse Strength [Right Finger] Respiratory Rate 20 Respiratory Effort / Characteristics Respiratory Depth Respiratory Pattern Blood Pressure 176/90 H Blood Pressure [Left Arm] 182/98 H Blood Pressure Mean 118 Blood Pressure Mean [Left Arm] 126 Blood Pressure Position Blood Pressure Position [Left Arm] Lying Pulse Oximetry 98 94 96 Oxygen Delivery Method 03/27/18 18:35 03/27/18 18:45 03/27/18 19:00 Temperature Temperature Source Sepsis Recent Fever Within 48 Hours Sepsis New/Unexplained Change in Mental Status Sepsis Action Taken by Nursing Pulse Rate 59 L 59 L 58 L Pulse Rate [Right Finger] 59 L Pulse Rhythm Pulse Rhythm [Right Finger] Pulse Strength Pulse Strength [Right Finger] Respiratory Rate 20 Respiratory Effort / Characteristics Respiratory Depth Respiratory Pattern Blood Pressure 182/98 H Blood Pressure [Left Arm] 182/98 H Blood Pressure Mean 126 Blood Pressure Mean [Left Arm] 126 Blood Pressure Position Blood Pressure Position [Left Arm] Pulse Oximetry 97 96 94 Oxygen Delivery Method 03/27/18 19:05 03/27/18 19:15 03/27/18 19:16 Temperature Temperature Source Sepsis Recent Fever Within 48 Hours Sepsis New/Unexplained Change in Mental Status Sepsis Action Taken by Nursing Pulse Rate 60 58 L 58 L Pulse Rate [Right Finger] Pulse Rhythm Pulse Rhythm [Right Finger] Pulse Strength Pulse Strength [Right Finger] Respiratory Rate Respiratory Effort / Characteristics Respiratory Depth Respiratory Pattern Blood Pressure 176/96 H 175/85 H 175/77 H Blood Pressure [Left Arm] Blood Pressure Mean 122 115 109 Blood Pressure Mean [Left Arm] Blood Pressure Position Blood Pressure Position [Left Arm] Pulse Oximetry 95 95 96 Oxygen Delivery Method 03/27/18 19:18 03/27/18 19:23 03/27/18 19:30 Temperature Temperature Source Sepsis Recent Fever Within 48 Hours Sepsis New/Unexplained Change in Mental Status Sepsis Action Taken by Nursing Pulse Rate 59 L 55 L Pulse Rate [Right Finger] Pulse Rhythm Pulse Rhythm [Right Finger] Pulse Strength Pulse Strength [Right Finger] Respiratory Rate Respiratory Effort / Characteristics Respiratory Depth Respiratory Pattern Blood Pressure Blood Pressure [Left Arm] Blood Pressure Mean Blood Pressure Mean [Left Arm] Blood Pressure Position Blood Pressure Position [Left Arm] Pulse Oximetry 95 95 94 Oxygen Delivery Method Room Air 03/27/18 19:31 03/27/18 19:45 03/27/18 19:46 Temperature Temperature Source Sepsis Recent Fever Within 48 Hours Sepsis New/Unexplained Change in Mental Status Sepsis Action Taken by Nursing Pulse Rate 58 L 62 63 Pulse Rate [Right Finger] Pulse Rhythm Pulse Rhythm [Right Finger] Pulse Strength Pulse Strength [Right Finger] Respiratory Rate Respiratory Effort / Characteristics Respiratory Depth Respiratory Pattern Blood Pressure 197/93 H 184/103 H Blood Pressure [Left Arm] Blood Pressure Mean 127 130 Blood Pressure Mean [Left Arm] Blood Pressure Position Blood Pressure Position [Left Arm] Pulse Oximetry 94 96 95 Oxygen Delivery Method 03/27/18 19:55 03/27/18 20:00 03/27/18 20:01 Temperature Temperature Source Sepsis Recent Fever Within 48 Hours Sepsis New/Unexplained Change in Mental Status Sepsis Action Taken by Nursing Pulse Rate 58 L 61 Pulse Rate [Right Finger] 57 L Pulse Rhythm Pulse Rhythm [Right Finger] Regular Pulse Strength Pulse Strength [Right Finger] Normal Respiratory Rate 16 Respiratory Effort / Characteristics Non-Labored Respiratory Depth Normal Respiratory Pattern Blood Pressure 170/100 H Blood Pressure [Left Arm] 184/103 H Blood Pressure Mean 123 Blood Pressure Mean [Left Arm] 130 Blood Pressure Position Blood Pressure Position [Left Arm] Lying Pulse Oximetry 97 95 96 Oxygen Delivery Method Room Air 03/27/18 20:15 03/27/18 20:16 03/27/18 20:30 Temperature Temperature Source Sepsis Recent Fever Within 48 Hours Sepsis New/Unexplained Change in Mental Status Sepsis Action Taken by Nursing Pulse Rate 52 L 52 L Pulse Rate [Right Finger] Pulse Rhythm Pulse Rhythm [Right Finger] Pulse Strength Pulse Strength [Right Finger] Respiratory Rate Respiratory Effort / Characteristics Respiratory Depth Respiratory Pattern Blood Pressure 156/77 H Blood Pressure [Left Arm] Blood Pressure Mean 103 Blood Pressure Mean [Left Arm] Blood Pressure Position Blood Pressure Position [Left Arm] Pulse Oximetry 94 93 93 Oxygen Delivery Method 03/27/18 20:31 03/27/18 20:45 03/27/18 20:46 Temperature Temperature Source Sepsis Recent Fever Within 48 Hours Sepsis New/Unexplained Change in Mental Status Sepsis Action Taken by Nursing Pulse Rate 50 L 50 L 50 L Pulse Rate [Right Finger] Pulse Rhythm Pulse Rhythm [Right Finger] Pulse Strength Pulse Strength [Right Finger] Respiratory Rate Respiratory Effort / Characteristics Respiratory Depth Respiratory Pattern Blood Pressure 143/68 H 120/60 Blood Pressure [Left Arm] Blood Pressure Mean 93 80 Blood Pressure Mean [Left Arm] Blood Pressure Position Blood Pressure Position [Left Arm] Pulse Oximetry 93 93 92 Oxygen Delivery Method 03/27/18 21:00 Temperature Temperature Source Sepsis Recent Fever Within 48 Hours Sepsis New/Unexplained Change in Mental Status Sepsis Action Taken by Nursing Pulse Rate 51 L Pulse Rate [Right Finger] Pulse Rhythm Pulse Rhythm [Right Finger] Pulse Strength Pulse Strength [Right Finger] Respiratory Rate Respiratory Effort / Characteristics Respiratory Depth Respiratory Pattern Blood Pressure Blood Pressure [Left Arm] Blood Pressure Mean Blood Pressure Mean [Left Arm] Blood Pressure Position Blood Pressure Position [Left Arm] Pulse Oximetry 93 Oxygen Delivery Method GENERAL: Patient is listless and slow to respond to questions. EYES: The conjunctivae are clear. The pupils are round and reactive. EARS, NOSE, MOUTH AND THROAT: The nose is without any evidence of any deformity. Mucous membranes are moist tongue is midline NECK: The neck is nontender and supple. RESPIRATORY: Normal respiratory effort is noted there is no evidence of wheezing rhonchi or rales CARDIOVASCULAR: Regular rate and rhythm noted there no murmurs rubs or gallops normal S1 normal S2 GASTROINTESTINAL: The abdomen is soft. Bowel sounds are present in all quadrants. Abdomen is nontender MUSCULOSKELETAL/EXTREMITIES: There is no evidence of gross deformity full range of motion is noted in the hips and shoulders SKIN: There is no obvious evidence of any rash. Trace pedal edema was noted bilaterally. NEUROLOGIC: Patient has severe aphasia at this time. She is answering questions inappropriately. Words are slurred. The patient has a right facial droop with forehead sparing. The patient is flaccid in the right upper and right lower extremity. Course 172: Past medical records reviewed. The patient was evaluated in room B1, and a complete history and physical examination were performed. 1547: I reviewed the patient's case with Dr. Knott - Stroke Neurology - [facility]. He would like a STAT CTA. He will evaluate the patient. 1811: Dr. Knott is talking to the family at this time. 1943: The Clinical Margarine Churn Operator states that all EMS crews are refusing to transport the patient due to the declining weather climate at this time. 2019: I discussed the situation with Dr. Knott. He states that he is OK with her going to any facility that can evaluate for possible endovascular treatment. He agrees that the situation may be that there is not anything that can be done as her symptoms have been present for so long. 2031: I discussed the case with Dr. Purvis - Neurosurgery. He will call me back with further information. 2053: I discussed with Dr. Florez - [facility] stroke neurology. 2057: Nursing staff reports that the family now wants to stay with [facility]. They will stay here in the hospital and be transferred in the morning if they must. They do not want to go to [facility]. Administered Medications Ioversol (Optiray 320 125ml) 115 ml IV ONCE PRN PRN Reason: Interaction Checking Stop: 03/31/18 18:21 Last Admin: 03/27/18 18:22 Dose: 115 ml Discontinued Medications Magnesium Sulfate/Dextrose (Magnesium Sulfate / D5w) 1 gm in 100 mls @ 100 mls/ hr IV Q1H [place] Stop: 03/27/18 19:59 Last Admin: 03/27/18 20:23 Dose: 100 mls/hr Infusion: 03/27/18 20:19 Dose: 0 mls/hr Admin: 03/27/18 18:49 Dose: 100 mls/hr Medical Decision Making Differential Diagnosis Differential Diagnosis includes: Differential includes acute coronary syndrome, myocardial infarction, CVA, TIA, anemia, infection, pneumonia, UTI, pyelonephritis, poor nutrition, dehydration, electrolyte disturbance,hypoglycemia. Medical Records Attestation: I reviewed the patient's medical records. Home Medications Current Medication List: was personally reviewed by me Laboratory Data Attestation: I reviewed the patient's lab results. Result diagrams: 03/27/18 17:15 03/27/18 17:15 Lab Results 03/27/18 03/27/18 03/27/18 Range/Units 17:15 17:15 17:15 WBC 9.92 (4.8-10.8) K/uL RBC 4.97 (4.2-5.4) M/uL Hgb 14.0 (12.0-16.0) g/dL Hct 42.6 (37-47) % MCV 85.7 (80-100) fL MCH 28.2 (25-34) pg MCHC 32.9 (32-36) g/dL RDW Std Deviation 41.2 (36.4-46.3) fL RDW Coeff of Joni 13.3 (11.5-14.5) % Plt Count 286 (130-400) K/uL MPV 10.6 H (7.4-10.4) fL Immature Gran % (Auto) 0.2 % Neut % (Auto) 71.3 % Lymph % (Auto) 22.2 % Caldwell % (Auto) 5.6 % Eos % (Auto) 0.4 % Baso % (Auto) 0.3 % Immature Gran # (Auto) 0.02 (0.00-0.02) K/uL Neut # (Auto) 7.07 H (1.4-6.5) K/uL Lymph # (Auto) 2.20 (1.2-3.4) K/uL Caldwell # (Auto) 0.56 (0.11-0.59) K/uL Eos # (Auto) 0.04 (0-0.5) K/uL Baso # (Auto) 0.03 (0-0.2) K/uL PT 10.6 (9.0-12.0) Seconds INR 1.1 (0.9-1.1) APTT 25.2 (21.0-31.0) Seconds PTT Ratio 1.0 Sodium 140 (136-145) mmol/L Potassium 4.0 (3.5-5.1) mmol/L Chloride 108 H (98-107) mmol/L Carbon Dioxide 28 (21-32) mmol/L Anion Gap 4.0 (3-11) BUN 21 H (7-18) mg/dl Creatinine 0.83 (0.6-1.2) mg/dl Est Cr Clr Drug Dosing 74.0 ml/min Est GFR ( Amer) 84.6 Est GFR (Non-Af Amer) 73.0 BUN/Creatinine Ratio 24.9 H (10-20) Glucose 108 H (70-99) mg/dl Calcium 9.1 (8.5-10.1) mg/dl Magnesium 2.3 (1.8-2.4) mg/dl Troponin I < 0.015 (0-0.045) ng/ml Imaging Data Attestation: I personally reviewed and interpreted this imaging study as follows : Radiologist's Impression: CT ANGIOGRAM OF THE BRAIN; CT ANGIOGRAM OF THE NECK CLINICAL HISTORY: Right-sided weakness. COMPARISON STUDY: Unenhanced CT of the brain dated 03/27/2018. CT angiogram of the brain dated 03/21/2018. CT angiogram of the neck dated 03/21/2018. TECHNIQUE: Following the IV administration of 116 of Optiray 320, CT angiogram of the head and neck was performed from the aortic arch to the vertex. Images are reviewed in the axial, sagittal, and coronal planes. 3-D MIPS images are created and assessed. IV contrast was administered without complication. All measurements were calculated based on NASCET criteria. A dose lowering technique was utilized adhering to the principles of ALARA. CT DOSE: 544.35 mGy.cm FINDINGS: Brain parenchyma: There are age-related involutional changes noting moderate subcortical and periventricular microangiopathic disease. Asymmetric low- attenuation is seen within the left-sided subcortical and periventricular white matter. There is no hemorrhage, mass effect, or evidence of acute territorial ischemia by CT criteria. There is no evidence of enhancing mass lesion on the angiogram phase images. The ventricles, sulci, and cisterns are normal in configuration. No extra-axial fluid collection is seen. Thoracic aorta: Visualized portions of the thoracic aorta are normal in caliber. 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 Right carotid arterial system: The right common carotid artery is widely patent , as are the right internal and external carotid arteries. Left carotid arterial system: Left common carotid artery is widely patent, as are the left internal and external carotid arteries. Vertebral arteries: The left vertebral artery in the neck is widely patent and dominant. The right vertebral artery is diminutive. The right vertebral artery is patent in the neck and occluded at the skull base. This is unchanged from previous. Subclavian arteries: The subclavian arteries are widely patent bilaterally. Intracranial vasculature: The internal carotid arteries at the skull base are widely patent. There is a 4 mm focus of near complete to occlude occlusion identified involving the distal M1 segment of the left middle cerebral artery with distal reconstitution. The anterior cerebral arteries and the right middle cerebral artery are patent. The left vertebral artery at the skull base is widely patent and dominant. The right vertebral artery at the skull base is diminutive and largely occluded. There is minimal reconstitution just below the basilar artery. The posterior cervical arteries are patent. There is no aneurysm aneurysm identified throughout the intracranial circulation. Jugular veins: Widely patent bilaterally. Dural sinuses: Patent. Lung apices: Partially visualized upper lobe lung parenchyma appears clear. Soft tissues: The visualized pharyngeal soft tissues are normal in appearance noting angiographic phase technique. The oropharyngeal airway appears widely patent. Low-attenuation thyroid nodules are seen bilaterally and measure up to 8 mm. The salivary glands are normal in appearance. No cervical lymphadenopathy is seen. Skeletal structures: The skeletal structures are osteopenic. The calvarium appears intact. The cervical spine appears maintained noting multilevel spondylosis. No lytic or blastic lesion is seen. Sinuses and mastoids: The paranasal sinuses are clear. The mastoid air cells are well pneumatized. IMPRESSION: 1. There is no hemorrhage, mass effect, or evidence of acute territorial ischemia by CT criteria on this angiographic phase examination. 2. 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 This is unchanged from 03/21/2018. 3. The right vertebral artery at the skull base is diminutive and largely thrombosed. This is unchanged from 03/21/2018. 4. Unremarkable CT angiogram of the neck. 5. An aberrant right subclavian artery is incidentally noted. Electronically signed by: Josue Corral M.D. 03/27/2018 6:[address] SCAN OF THE BRAIN WITHOUT IV CONTRAST CLINICAL HISTORY: Strokelike symptoms. COMPARISON STUDY: CT of the brain dated 03/19/2018. MRI of the brain dated 2018. TECHNIQUE: Unenhanced axial CT scan of the brain is performed from the vertex to the skull base. A dose lowering technique was utilized adhering to the principles of ALARA. CT DOSE: 537.48 mGy.cm FINDINGS: Brain parenchyma: There is progressive low-attenuation throughout the left- sided subcortical and periventricular white matter. This likely represents evolving infarction correlated with the 03/20/2018 MRI. There is no evidence of acute territorial ischemia by CT criteria. There is moderate patchy subcortical and and periventricular microangiopathic change. There is no hemorrhage or mass effect. No extra-axial fluid collection is seen. Ventricles, sulci, cisterns: Prominent secondary to involutional change. Intracranial vasculature: There is atherosclerotic calcification of the cavernous carotid arteries. Calvarium: Unremarkable. Sinuses and mastoids: The visualized paranasal sinuses are clear. The mastoid air cells are well pneumatized. Orbits: The bony orbits are grossly intact. IMPRESSION: 1. There is no hemorrhage, mass effect, or evidence of acute territorial ischemia by CT criteria. 2. There is progressive low-attenuation throughout the left-sided subcortical and periventricular white matter. This likely represents evolving infarcts when correlated with recent prior examinations. Electronically signed by: Josue Corral M.D. 03/27/2018 5:33 PM SINGLE VIEW CHEST CLINICAL HISTORY: Generalized weakness. FINDINGS: An AP, portable, upright chest radiograph is compared to study dated . The heart is enlarged and there is atherosclerotic calcification of the thoracic aorta. The pulmonary vasculature is noncongested. Bibasilar atelectasis is observed. No airspace consolidation or large pleural effusion is identified. No pneumothorax is seen. The skeletal structures are osteopenic. The bony thorax is grossly intact. IMPRESSION: Cardiomegaly with no acute cardiopulmonary abnormality. Electronically signed by: Josue Corral M.D. 03/27/2018 6:02 PM ECG Data Attestation: I personally reviewed and interpreted this ECG as follows: Indication: weakness Rate (beats per minute): 62 Rhythm: normal sinus Findings: + Q waves (anterior); no ST depression and no ST elevation Comparison ECG Date: from (03/20/2018) Change: no significant change Blood Pressure Blood Pressure Findings: Elevated blood pressure Blood Pressure Disposition: further management by hospitalist ANEUDY Campo The patient is a 67-year-old female who presented to the emergency department for a stroke alert. The patient was seen in our facility recently and was diagnosed with a stroke. 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 She was stabilized at our facility and then sent to [facility] for inpatient rehab. Apparently the patient has been declining over the last few days but there was a large change noted by the family today and there is a family meeting after which the decision was made to send the patient to the emergency department. She was made a stroke alert. I discussed the patient's laboratory and radiographic studies with her. I discussed her case with the [facility] stroke neurologist. I discussed the patient's findings with her family as well. At this time she has a continued occlusion noted of the left MCA. Given the patient's fluctuating symptoms I was concerned that she still may have some viable areas in a watershed distribution which could still be salvaged. I discussed this with the stroke neurologist at [facility]. At this point he recommended IV fluid and IV magnesium. He did recommend transfer as soon as possible. Transfer paperwork was filled out by myself but because of the weather the patient was unable to be transferred. We are awaiting ground transport at this time or air transport if it becomes available. I discussed this with the patient as well as her son who is making the decisions at this time. I also discussed this case with [facility] they were willing to accept the patient for a similar workup and intervention plan however the son then change his mind and wish the patient to stay here until such time she could be transferred to [facility]. I discussed the possibility with him that this may be a long time and he was willing to wait I also discussed with him that the treatment at either Medical [facility] would be appropriate and likely very similar. The patient was reevaluated multiple times. I discussed her case with the on-call [facility] hospitalist. They have agreed to accept the patient for further management and disposition. Impression & Plan CVA (cerebral vascular accident) Discharge Plan Visit Data Chief Complaint: Stroke Alert Stated Complaint: STROKE SX ED Provider: Kyle Benedict Discharge Problem: CVA (cerebral vascular accident) Forms Stand Alone Forms: My [facility] Prescriptions Prescriptions: No Action multivitamin Tablet 1 tab PO DAILY RF: 0 cyanocobalamin (vitamin B-12) 100 mcg Tablet 100 mcg PO DAILY RF: 0 ondansetron HCl 4 mg tablet 4 mg PO Q6 PRN (Reason: Nausea) RF: 0 aspirin [Aspir-81] 81 mg Tablet,Delayed Release (Dr/Ec) 81 mg PO DAILY RF: 0 lorazepam 0.5 mg Tablet 0.5 mg PO TID PRN (Reason: Anxiety) RF: 0 meclizine 25 mg tablet 25 mg PO TID PRN (Reason: Dizziness Or Vertigo) RF: 0 pantoprazole 40 mg tablet,delayed release (DR/EC) 40 mg PO BID RF: 0 nitroglycerin 0.4 mg Tablet, Sublingual 0.4 mg Sublingual UD RF: 0 nystatin 100,000 unit/gram powder 1 applic topical UD PRN (Reason: Skin Irritation) RF: 0 albuterol sulfate 90 mcg/actuation Hfa Aerosol Inhaler 1 - 2 puff INHALATION Q6H PRN (Reason: Shortness Of Breath Or Wheezing) RF: 0 coenzyme Q10 [CoQ-10] 100 mg Capsule 100 mg PO DAILY RF: 0 cinnamon bark [Cinnamon] 500 mg Capsule 1,000 mg PO DAILY RF: 0 duloxetine 20 mg capsule,delayed release(DR/EC) 40 mg PO DAILY RF: 0 biotin 1 mg Tablet 1 mg PO DAILY RF: 0 fenofibrate nanocrystallized 48 mg tablet 48 mg PO HS RF: 0 diclofenac sodium 1 % Gel 2 g TOPICAL UD PRN (Reason: Pain) RF: 0 cholecalciferol (vitamin D3) 5,000 unit Tablet 5,000 unit PO DAILY RF: 0 pravastatin [Pravachol] 40 mg tablet 40 mg PO DAILY Qty: 60 RF: 0 clopidogrel [Plavix] 75 mg tablet 75 mg PO DAILY Qty: 60 RF: 0 ezetimibe 10 mg tablet 10 mg PO DAILY Qty: 60 RF: 0 enoxaparin 40 mg/0.4 mL Syringe 40 mg SUBCUT DAILY RF: 0 lisinopril 20 mg Tablet 40 mg PO DAILY RF: 0 atenolol 25 mg Tablet 25 mg PO DAILY RF: 0 clonidine HCl 0.1 mg Tablet 0.1 mg PO BID RF: 0 docusate sodium 100 mg Capsule 100 mg PO BID PRN (Reason: Constipation) RF: 0 magnesium hydroxide [Milk Of Magnesia Concentrated] 2,400 mg/10 mL Suspension 30 ml PO DAILY PRN (Reason: Constipation) RF: 0 bisacodyl 10 mg Suppository 10 mg CO DAILY PRN (Reason: Constipation) RF: 0 acetaminophen [Tylenol] 325 mg Tablet 650 mg PO Q4H PRN (Reason: Pain (Scale Score 1-3)) RF: 0 polyethylene glycol 3350 [Miralax] 17 gram/dose Powder 17 g PO DAILY PRN (Reason: Constipation) RF: 0 sennosides-docusate sodium [Senokot-S] 8.6-50 mg Tablet 1 tab PO .DAILY@LUNCH RF: 0 sodium phosphates [Fleet Enema] 19-7 gram/118 mL Enema 118 ml CO DAILY PRN (Reason: Constipation) RF: 0 The scribe's documentation has been prepared under my direction and personally reviewed by me in its entirety. I confirm that the note above accurately reflects all work, treatment, procedures, and medical decision making performed by me.
[2018-03-27] MEDS: MAGNESIUM SULFATE / D5W 1 GM/100 ML BAG IV SCH ×2 (18:49→20:23)
--- NOTE | 2018-03-27 18:53 | CT Scan Report ---
CT ANGIOGRAM OF THE BRAIN; CT ANGIOGRAM OF THE NECK CLINICAL HISTORY: Right-sided weakness. COMPARISON STUDY: Unenhanced CT of the brain dated 03/27/2018. CT angiogram of the brain dated 03/21/[address] angiogram of the neck dated 03/21/2018. TECHNIQUE: Following the IV administration of 116 of Optiray 320, CT angiogram of the head and neck w as performed from the aortic arch to the vertex. Images are reviewed in the axial, sagittal, and mo nal planes. 3-D MIPS images are created and assessed. IV contrast was administered without complicati on. All measurements were calculated based on NASCET criteria. A dose lowering technique was utilize d adhering to the principles of ALARA. CT DOSE: 544.35 mGy.cm FINDINGS: Brain parenchyma: There are age-related involutional changes noting moderate subcortical and perivent ricular microangiopathic disease. Asymmetric low-attenuation is seen within the left-sided subcortica l and periventricular white matter. There is no hemorrhage, mass effect, or evidence of acute territo rial ischemia by CT criteria. There is no evidence of enhancing mass lesion on the angiogram phase im ages. The ventricles, sulci, and cisterns are normal in configuration. No extra-axial fluid collecti on is seen. Thoracic aorta: Visualized portions of the thoracic aorta are normal in caliber. The aortic arch demo nstrates 4-vessel variant anatomy, with an aberrant right subclavian artery arising as a fourth branc h. Right carotid arterial system: The right common carotid artery is widely patent, as are the right int ernal and external carotid arteries. Left carotid arterial system: Left common carotid artery is widely patent, as are the left internal a nd external carotid arteries. Vertebral arteries: The left vertebral artery in the neck is widely patent and dominant. The right ve rtebral artery is diminutive. The right vertebral artery is patent in the neck and occluded at the sk ull base. This is unchanged from previous. Subclavian arteries: The subclavian arteries are widely patent bilaterally. Intracranial vasculature: The internal carotid arteries at the skull base are widely patent. There is a 4 mm focus of near complete to occlude occlusion identified involving the distal M1 segment of the left middle cerebral artery with distal reconstitution. The anterior cerebral arteries and the right middle cerebral artery are patent. The left vertebral artery at the skull base is widely patent and dominant. The right vertebral artery at the skull base is diminutive and largely occluded. There is m inimal reconstitution just below the basilar artery. The posterior cervical arteries are patent. Ther e is no aneurysm aneurysm identified throughout the intracranial circulation. Jugular veins: Widely patent bilaterally. Dural sinuses: Patent. Lung apices: Partially visualized upper lobe lung parenchyma appears clear. Soft tissues: The visualized pharyngeal soft tissues are normal in appearance noting angiographic pha se technique. The oropharyngeal airway appears widely patent. Low-attenuation thyroid nodules are see n bilaterally and measure up to 8 mm. The salivary glands are normal in appearance. No cervical lymph adenopathy is seen. Skeletal structures: The skeletal structures are osteopenic. The calvarium appears intact. The cervic al spine appears maintained noting multilevel spondylosis. No lytic or blastic lesion is seen. Sinuses and mastoids: The paranasal sinuses are clear. The mastoid air cells are well pneumatized. IMPRESSION: 1. There is no hemorrhage, mass effect, or evidence of acute territorial ischemia by CT criteria on t his angiographic phase examination. 2. 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 This is unchanged from 03/21/2018. 3. The right vertebral artery at the skull base is diminutive and largely thrombosed. This is unchang ed from 03/21/2018. 4. Unremarkable CT angiogram of the neck. 5. An aberrant right subclavian artery is incidentally noted. Electronically signed by: Josue Corral M.D. 03/27/2018 6:52 PM
[2018-03-27] MEDS ORDERED: SODIUM CHLORIDE 0.9% 500 ML IV ONE (21:58)
[2018-03-27] MEDS ORDERED: BISACODYL 10 MG SUPP PR PRN (22:53)
[2018-03-27] MEDS ORDERED: DOCUSATE SODIUM 100 MG CAP PO PRN (22:53)
[2018-03-27] MEDS ORDERED: LORazepam 0.5 MG TAB PO PRN (22:53)
[2018-03-27] MEDS ORDERED: ONDANSETRON 4 MG TAB PO PRN (22:53)
[2018-03-27] MEDS ORDERED: ALBUTEROL HFA 8 GM INHALER INH PRN (22:53)
[2018-03-27] MEDS ORDERED: MECLIZINE HCL 25 MG TAB PO PRN (22:53)
[2018-03-27] MEDS ORDERED: DICLOFENAC SOD 1% GEL 100 GM TUBE EXT PRN (22:53)
[2018-03-27] MEDS ORDERED: NYSTATIN POWDER 15GM BTL EXT PRN (22:53)
[2018-03-27] MEDS ORDERED: NITROGLYCERIN SL 0.4 MG/TAB TAB SL PRN (23:00)
--- NOTE | 2018-03-27 23:57 | History & Physical Report ---
Date of Service March 27, 2018 Assessment & Plan (1) Dysarthria as late effect of cerebrovascular accident (CVA): CVA -Plan to transfer to [facility] for endovascular intervention as soon as transport available -no tPA indicated -Neuro checks -Neuro consult -Cont asa/plavix -Speech eval -Permissive HTN: lisinopril, atenolol held. Continue clonidine. -Cont zetia, fenofibrate, pravchol -echo on prev admission: EF 60-65, no evidence of cardioembolic source -Lipids: Lzss=791, BP=761, SDR=335, VLDL=55, HDL=42 on 03/21/18 -AIC=6 on 03/21/18 CAD s/p 2 stents RCA/LAD -med management as above Anxiety -duloxetine, ativan -PO meds when OKd by speech DVTP: SCDs CODE: Full Dispo: Tele, awaiting transport (2) CVA (cerebral vascular accident): (3) Generalized weakness: History of Present Illness Chief Complaint: progressive stroke symptoms Primary Care Provider: Broderick Sommer MD Patient is a 67yo Female who presents with worsening stroke symptoms after being discharged from [facility] earlier today. Patient initially presented to ER on with confusion and aphasia--CT was negative and MRI was recommended due to suspicion of evolving stroke but patient declined and left without further intervention. Patient returned on 03/20 with same symptoms, MRI was performed and showed L sided stroke, CTA confirming MCA occlusion. She was medically optimized and sent to [facility] for rehab on 03/22. Today, she left [facility] at 1100, and acutely at 1200, family noted her to have new R sided weakness and worsening speech, facial droop from previous. Her case was discussed between ER physician and Dr. Knott with stroke neurology at [facility], who recommended stat CTA. Based upon findings of progressive low-attenuation throughout left-sided subcortical and periventricular white matter (indicating evolving infarcts), it was recommended she be transferred to facility for possible endovascular treatment. Due to inclement weather, patient was unable to be transported to [place] on evening of 03/27. [facility] was contacted and were willing to accept patient for similar intervention plan, however the son of the patient declined transfer to any facility aside from [place] [facility]. He is aware of the risks of delaying potential intervention. Allergies Allergy/AdvReac Type Severity Reaction Status Date / Time codeine Allergy Unknown CODEINE Verified 03/19/18 16:04 DERIVATIVES-CODED AFTER TAKING-VERY LOW BP,PASSING latex Allergy Unknown SWELLING Verified 03/19/18 16:04 AT SITE OF CONTACT [facility] Reductase AdvReac Unknown MUSCLE Verified 03/27/18 23:29 Inhibitor ACHES analgesics AdvReac Hypotension Uncoded 03/19/18 16:04 Home Medications Home Medications Medication Instructions Recorded Confirmed Type albuterol sulfate 1 - 2 puff INHALATION Q6H PRN 03/19/18 03/27/18 History aspirin [Aspir-81] 81 mg PO DAILY 03/19/18 03/27/18 History biotin 1 mg PO DAILY 03/19/18 03/27/18 History cholecalciferol (vitamin D3) 5,000 unit PO DAILY 03/19/18 03/27/18 History cinnamon bark [Cinnamon] 1,000 mg PO DAILY 03/19/18 03/27/18 History coenzyme Q10 [CoQ-10] 100 mg PO DAILY 03/19/18 03/27/18 History cyanocobalamin (vitamin B-12) 100 mcg PO DAILY 03/19/18 03/27/18 History diclofenac sodium 2 g TOPICAL UD PRN 03/19/18 03/27/18 History duloxetine 40 mg PO DAILY 03/19/18 03/27/18 History fenofibrate nanocrystallized 48 mg PO HS 03/19/18 03/27/18 History lorazepam 0.5 mg PO TID PRN 03/19/18 03/27/18 History meclizine 25 mg PO TID PRN 03/19/18 03/27/18 History multivitamin 1 tab PO DAILY 03/19/18 03/27/18 History nitroglycerin 0.4 mg SUBLINGUAL UD 03/19/18 03/27/18 History nystatin 1 applic TOPICAL UD PRN 03/19/18 03/27/18 History ondansetron HCl 4 mg PO Q6 PRN 03/19/18 03/27/18 History pantoprazole 40 mg PO BID 03/19/18 03/27/18 History clopidogrel [Plavix] 75 mg PO DAILY #60 tab 03/22/18 03/27/18 Rx ezetimibe 10 mg PO DAILY #60 tab 03/22/18 03/27/18 Rx pravastatin [Pravachol] 40 mg PO DAILY #60 tab 03/22/18 03/27/18 Rx acetaminophen [Tylenol] 650 mg PO Q4H PRN 03/27/18 03/27/18 History atenolol 25 mg PO DAILY 03/27/18 03/27/18 History bisacodyl 10 mg [place] DAILY PRN 03/27/18 03/27/18 History clonidine HCl 0.1 mg PO BID 03/27/18 03/27/18 History docusate sodium 100 mg PO BID PRN 03/27/18 03/27/18 History enoxaparin 40 mg SUBCUT DAILY 03/27/18 03/27/18 History lisinopril 40 mg PO DAILY 03/27/18 03/27/18 History magnesium hydroxide [Milk Of 30 ml PO DAILY PRN 03/27/18 03/27/18 History Magnesia Concentrated] polyethylene glycol 3350 [Miralax] 17 g PO DAILY PRN 03/27/18 03/27/18 History sennosides-docusate sodium 1 tab PO .DAILY@LUNCH 03/27/18 03/27/18 History [Senokot-S] sodium phosphates [Fleet Enema] 118 ml [place] DAILY PRN 03/27/18 03/27/18 History Past Med/Surg History Medical History Heart attack (Acute) Anxiety (Chronic) Family History Other Cancer Diabetes Heart disease Hypertension Social History marital status: Current Living Situation: Rehab Other Information That Helps Us Care for You: No Feels Safe at Home: Yes Smoking Status: Unknown if ever smoked Hx Alcohol Use: No Hx Substance Use: No Beliefs That Will Affect Care: None Communication Ability: Impaired Communication Ability Comment: PROGRESSION OF CVA AT THIS TIME Automatic Profile Shaper Operator Required: No Review of Systems Unobtainable due to cognitive status Physical Exam 2 Vital Signs (Past 24 Hours): Last Vital Signs Temp 36.7 C 03/27/18 17:46 Pulse 53 L 03/27/18 23:16 Resp 16 03/27/18 19:55 BP 149/79 H 03/27/18 23:30 Pulse Ox 96 03/27/18 23:30 Constitutional: WD/WN, vitals as above Patient slow to answer questions, somnolent/listless. Expressive aphasia, able to answer some yes/no questions Eyes: PERRL, conjunctivae normal, anicteric sclerae ENMT: external ear and nose normal, oropharynx normal Neck: normal visual inspection Respiratory: normal respiratory effort, lungs clear to auscultation Cardiovascular: RRR, no murmur, no edema Gastrointestinal (Abdomen): normal bowel sounds, soft, nontender, no hepatosplenomegaly Skin: no rashes, warm and dry Neurologic: + focal motor deficit Speech / Cognition: + expressive aphasia Decreased ROM and international trade analyst strength in Right upper extremity. Able to move in non-coordinated effort. Right facial droop, forehead sparing, flaccid RUE and RLE. Results & Data Laboratory Results 03/27/18 03/27/18 03/27/18 Range/Units 17:15 17:15 17:15 WBC 9.92 (4.8-10.8) K/uL RBC 4.97 (4.2-5.4) M/uL Hgb 14.0 (12.0-16.0) g/dL Hct 42.6 (37-47) % MCV 85.7 (80-100) fL MCH 28.2 (25-34) pg MCHC 32.9 (32-36) g/dL RDW Std Deviation 41.2 (36.4-46.3) fL RDW Coeff of Joni 13.3 (11.5-14.5) % Plt Count 286 (130-400) K/uL MPV 10.6 H (7.4-10.4) fL Immature Gran % (Auto) 0.2 % Neut % (Auto) 71.3 % Lymph % (Auto) 22.2 % [place] % (Auto) 5.6 % Eos % (Auto) 0.4 % Baso % (Auto) 0.3 % Immature Gran # (Auto) 0.02 (0.00-0.02) K/uL Neut # (Auto) 7.07 H (1.4-6.5) K/uL Lymph # (Auto) 2.20 (1.2-3.4) K/uL [place] # (Auto) 0.56 (0.11-0.59) K/uL Eos # (Auto) 0.04 (0-0.5) K/uL Baso # (Auto) 0.03 (0-0.2) K/uL PT 10.6 (9.0-12.0) Seconds INR 1.1 (0.9-1.1) APTT 25.2 (21.0-31.0) Seconds PTT Ratio 1.0 Sodium 140 (136-145) mmol/L Potassium 4.0 (3.5-5.1) mmol/L Chloride 108 H (98-107) mmol/L Carbon Dioxide 28 (21-32) mmol/L Anion Gap 4.0 (3-11) BUN 21 H (7-18) mg/dl Creatinine 0.83 (0.6-1.2) mg/dl Est Cr Clr Drug Dosing 74.0 ml/min Est GFR ( Amer) 84.6 Est GFR (Non-Af Amer) 73.0 BUN/Creatinine Ratio 24.9 H (10-20) Glucose 108 H (70-99) mg/dl Calcium 9.1 (8.5-10.1) mg/dl Magnesium 2.3 (1.8-2.4) mg/dl Troponin I < 0.015 (0-0.045) ng/ml Medications Administered Current Inpatient Medications Acetaminophen (Tylenol) 650 mg PO Q4H PRN PRN Reason: Pain (Scale Score 1-3) Stop: 04/26/18 22:52 Al Hydrox/Mg Hydrox/Simethicone (Maalox) 15 ml PO Q4H PRN PRN Reason: Dyspepsia Stop: 04/27/18 00:01 Albuterol (Ventolin Hfa) 2 puffs INH Q6H PRN PRN Reason: Shortness Of Breath Or Wheezing Stop: 04/26/18 22:52 Aspirin (Ecotrin Ectab) 81 mg PO DAILY [facility] Stop: 04/27/18 08:59 Atenolol (Tenormin) 25 mg PO DAILY [facility] Stop: 04/27/18 08:59 Bisacodyl (Dulcolax) 10 mg [place] DAILY PRN PRN Reason: Constipation Stop: 04/26/18 22:52 Clonidine HCl (Catapres) 0.1 mg PO BID [facility] Stop: 04/27/18 08:59 Clopidogrel Bisulfate (Plavix) 75 mg PO DAILY [facility] Stop: 04/27/18 08:59 Diclofenac Sodium (Voltaren 1% Top) 2 appln EXT DAILY PRN PRN Reason: Pain Stop: 04/26/18 22:52 Docusate Sodium (Colace) 100 mg PO BID PRN PRN Reason: Constipation Stop: 04/26/18 22:52 Duloxetine HCl (Cymbalta) 40 mg PO DAILY [facility] Stop: 04/27/18 08:59 Ezetimibe (Zetia) 10 mg PO DAILY [facility] Stop: 04/27/18 08:59 Fenofibrate (Fenofibrate) 48 mg PO HS [facility] Stop: 04/27/18 20:59 Sodium Chloride (Nss 1000ml) 1,000 mls @ 100 mls/hr IV .Q10H [facility] Stop: 04/27/18 00:29 Last Admin: 03/28/18 00:51 Dose: 100 mls/hr Lisinopril (Zestril) 40 mg PO DAILY [facility] Stop: 04/27/18 08:59 Lorazepam (Ativan) 0.5 mg PO TID PRN PRN Reason: Anxiety Stop: 04/26/18 22:52 Magnesium Hydroxide (Milk Of Magnesia) 30 ml PO Q12H PRN PRN Reason: Constipation Stop: 04/27/18 00:01 Meclizine HCl (Antivert) 25 mg PO TID PRN PRN Reason: Dizziness Or Vertigo Stop: 04/26/18 22:52 Miscellaneous Information (Pharmacist Discharge Med Rec Consult) 1 ea N/A UD PRN PRN Reason: Consult Stop: 04/27/18 00:01 Nitroglycerin (Nitrostat) 0.4 mg SL UD PRN PRN Reason: CHEST PAIN Stop: 04/26/18 22:59 Nystatin (Mycostatin) 1 appln EXT DAILY PRN PRN Reason: SKIN IRRITATION Stop: 04/26/18 22:52 Ondansetron HCl (Zofran) 4 mg PO Q6 PRN PRN Reason: Nausea Stop: 04/26/18 22:52 Ondansetron HCl (Zofran) 4 mg IV Q6H PRN PRN Reason: Nausea Stop: 04/27/18 00:01 Pantoprazole Sodium (Protonix) 40 mg PO BID [facility] Stop: 04/27/18 08:59 Polyethylene Glycol (Miralax Powder Packet) 17 gm PO DAILY PRN PRN Reason: Constipation Stop: 04/27/18 00:01 Pravastatin Sodium (Pravachol) 40 mg PO DAILY [facility] Stop: 04/27/18 08:59 Code Status & VTE Plan Code Status Full VTE Prophylaxis Plan VTE Prophylaxis will be ordered: Yes Supervising Physician Co-Signing Physician Notes Patient seen and examined, chart reviewed, case discussed with Dr. Joe and I agree with her assessment and plan as documented above. Briefly, patient is a 67yo right-handed female presenting with L MCA CVA with evolving neurologic defecit. She is to be transferred to [facility] for possible endovascular intervention, however, is unable to transfer this evening due to inclement weather. On exam she is afebrile, HR=56, MB=127/75, RR=20, 95% on RA She is somnolent, wakes to verbal stimuli, answers some yes/no questions, follows commands HEENT: NC/AT, PERRL, anicteric, MMM, neck supple Heart: +S1/S2, regular, no m/r/g Lungs: equal air entry bilaterally, no rales/rhonchi/wheezes Abd: +BS, soft ,NT/ND, no masses/organomegaly/ascites Ext: warm, well perfused, no clubbing/cyanosis or edema Neuro: Somnolent, awakes to verbal stimuli, right facial droop present, not moving RUE on command, able to move RLE with diminished strength 4/5, strength and sensation intact LLE/LUE Labs and images reviewed. Dcn=[id number] CT Head - There is progressive low-attenuation throughout the left-sided subcortical and periventricular white matter. This likely represents evolving infarcts when correlated with recent prior examinations. CTA Head - 4mm focus of near complete to complete occlusion of the distal M1 segment of the left MCA. Unchanged from 03/21/18. Right vertebral artery is largely thrombosed. Unchanged from 03/21/18. AIC=6 on 03/21/18 Obvs=580, VV=986, MUZ=533, VLDL=55, HDL=42 on 03/21/18 Assessment/Plan: Admit to PCU Neuro checks Neurology consult Allow for permissive hypertension PT/OT/Speech evaluation Will hold Lisinopril and Atenolol for now to allow for permissive hypertension Continue Clonidine Continue Pravastatin, Zetia, Fenofibrate Remainder of plan as above Resident Activity Tracking Resident Involvement: Resident Care Provided Care Provided: Adult [facility] Medicine _ (1) CVA (cerebral vascular accident) CVA mechanism: occlusion Laterality of affected vessel: left Precerebral and cerebral artery: middle cerebral artery Qualified Code(s): I63.512 - Cerebral infarction due to unspecified occlusion or stenosis of left middle cerebral artery
[2018-03-28] MEDS ORDERED: ALUMINUM/MAGNESIUM SUSP 30 ML UDC PO PRN (00:02)
[2018-03-28] MEDS ORDERED: PHARMACIST DISCHARGE MED REC CONSULT PRN (00:02)
[2018-03-28] MEDS ORDERED: MAGNESIUM HYDROXIDE SUSP 30 ML UDC PO PRN (00:02)
[2018-03-28] MEDS ORDERED: ONDANSETRON INJ 2 MG/ML 2 ML VIAL IV PRN (00:02)
[2018-03-28] MEDS ORDERED: POLYETHYLENE (MIRALAX) 17 GM PACK PO PRN (00:02)
[2018-03-28] MEDS: SODIUM CHLORIDE 0.9% 1000ML 1,000 ML IV SCH ×3 (00:51→21:46)
[2018-03-28] MEDS ORDERED: INFLUENZA VACCINE HIGH DOSE 65+ 0.5 ML SYR IM ONE (04:30)
[2018-03-28] MEDS ORDERED: INFLUENZA ADMINISTRATION CHARGE ONE (04:30)
[2018-03-28 08:10] LABS: Basophils # (auto) 0.04 K/uL (0-0.2); Basophils % (auto) 0.5 %; Eosinophils # (auto) 0.04 K/uL (0-0.5); Eosinophils % (auto) 0.5 %; Hematocrit (blood only) 40.8 % (37-47); Hemoglobin 13.6 g/dL (12.0-16.0); Immature Granulocytes # (auto) 0.02 K/uL (0.00-0.02); Immature Granulocytes % (auto) 0.2 %; Lymphocytes # (auto) 1.59 K/uL (1.2-3.4); Lymphocytes % (auto) 19.2 %; Mean Corpuscular Hgb Conc 33.3 g/dL (32-36); Mean Corpuscular Volume 85.7 fL (80-100); Mean Platelet Volume 10.5 fL (7.4-10.4); Monocytes # (auto) 0.45 K/uL (0.11-0.59); Monocytes % (auto) 5.4 %; Neutrophils # (auto) 6.12 K/uL (1.4-6.5); Neutrophils % (auto) 74.2 %; Platelet Count 262 K/uL (130-400); RDW Coefficient of Variation 13.2 % (11.5-14.5); RDW Standard Deviation 41.1 fL (36.4-46.3); Red Blood Count 4.76 M/uL (4.2-5.4); White Blood Count 8.26 K/uL (4.8-10.8)
[2018-03-28] MEDS ORDERED: LISINOPRIL 20 MG TAB PO SCH (09:00)
[2018-03-28] MEDS ORDERED: ATENOLOL 25 MG TABLET PO SCH (09:00)
[2018-03-28 09:36] LABS: Albumin Level 3.2 gm/dl (3.4-5.0); BUN Creatinine Ratio 25.5 (10-20); Bilirubin Direct 0.1 mg/dl (0-0.2); Calcium 8.3 mg/dl (8.5-10.1); Creatinine Clr Calc Pharmacy 86.3 ml/min; Est GFR (African American) 104.4; Est GFR (Non-African American) 90.1; Potassium 3.7 mmol/L (3.5-5.1)
[2018-03-28 09:39] LABS: Bilirubin,Total 0.5 mg/dl (0.2-1); Total Protein 6.7 gm/dl (6.4-8.2)
--- NOTE | 2018-03-28 10:29 | Neurology Consultation ---
Date of Consultation March 28, 2018 Assessment & Plan (1) Left acute arterial ischemic stroke, MCA (middle cerebral artery): Evolving left middle cerebral artery territory infarct with evidence of occlusion of the left M1 segment on CT angiography. Clinically, this patient has a global aphasia as well as a dense right hemiplegia. Would recommend a repeat MRI of the brain to evaluate the extent of her evolving stroke. Continue with aspirin and Plavix. Permissive hypertension. Systolic blood pressure between 160 and 180 mmHg would be appropriate. Transfer to [facility] for possible thrombectomy when weather allows. Consultations with PT/OT/speech therapy. History of Present Illness Reason for Consultation: Evolving stroke Requesting Physician: Rachel Joe MD Attending Physician: Amy Wyatt History of Present Illness The patient is a 67-year old female who has been readmitted to the [facility] for further evaluation of an evolving left middle cerebral artery territory infarct. She was evaluated by Dr. Carpio on March 21 for symptoms consistent with a left hemispheric stroke that probably began several days prior. She was found to have an occlusion of the left M1 segment of the middle cerebral artery with distal reconstitution at that time. She was discharged to rehabilitation on antiplatelet therapy. Unfortunately, the patient's symptoms have progressed. She was readmitted to the hospital with global aphasia and a dense right hemiplegia affecting the face arm and leg. There is no evidence of hemorrhage on the up-to-date CT of the head although the study did reveal evolution of the previously identified left cerebral hemispheric infarcts. A repeat CT angiogram was also obtained which was unchanged and also revealed a stable thrombosed right vertebral artery. The emergency department physician had discussed this patient's case with the stroke specialist at [facility] who suggested a transfer for consideration of possible intra-arterial thrombectomy. However, due to inclement weather, a transfer is currently on hold. The patient currently exhibits a rather significant global aphasia and is unable to provide any specific details regarding her history of present illness. See examination below. Allergies Allergy/AdvReac Type Severity Reaction Status Date / Time codeine Allergy Unknown CODEINE Verified 03/19/18 16:04 DERIVATIVES-CODED AFTER TAKING-VERY LOW BP,PASSING latex Allergy Unknown SWELLING Verified 03/19/18 16:04 AT SITE OF CONTACT [id number] Reductase AdvReac Unknown MUSCLE Verified 03/27/18 23:29 Inhibitor ACHES analgesics AdvReac Hypotension Uncoded 03/19/18 16:04 Home Medications Home Medications Medication Instructions Recorded Confirmed Type albuterol sulfate 1 - 2 puff INHALATION Q6H PRN 03/19/18 03/27/18 History aspirin [Aspir-81] 81 mg PO DAILY 03/19/18 03/27/18 History biotin 1 mg PO DAILY 03/19/18 03/27/18 History cholecalciferol (vitamin D3) 5,000 unit PO DAILY 03/19/18 03/27/18 History cinnamon bark [Cinnamon] 1,000 mg PO DAILY 03/19/18 03/27/18 History coenzyme Q10 [CoQ-10] 100 mg PO DAILY 03/19/18 03/27/18 History cyanocobalamin (vitamin B-12) 100 mcg PO DAILY 03/19/18 03/27/18 History diclofenac sodium 2 g TOPICAL UD PRN 03/19/18 03/27/18 History duloxetine 40 mg PO DAILY 03/19/18 03/27/18 History fenofibrate nanocrystallized 48 mg PO HS 03/19/18 03/27/18 History lorazepam 0.5 mg PO TID PRN 03/19/18 03/27/18 History meclizine 25 mg PO TID PRN 03/19/18 03/27/18 History multivitamin 1 tab PO DAILY 03/19/18 03/27/18 History nitroglycerin 0.4 mg SUBLINGUAL UD 03/19/18 03/27/18 History nystatin 1 applic TOPICAL UD PRN 03/19/18 03/27/18 History ondansetron HCl 4 mg PO Q6 PRN 03/19/18 03/27/18 History pantoprazole 40 mg PO BID 03/19/18 03/27/18 History clopidogrel [Plavix] 75 mg PO DAILY #60 tab 03/22/18 03/27/18 Rx ezetimibe 10 mg PO DAILY #60 tab 03/22/18 03/27/18 Rx pravastatin [Pravachol] 40 mg PO DAILY #60 tab 03/22/18 03/27/18 Rx acetaminophen [Tylenol] 650 mg PO Q4H PRN 03/27/18 03/27/18 History atenolol 25 mg PO DAILY 03/27/18 03/27/18 History bisacodyl 10 mg RI DAILY PRN 03/27/18 03/27/18 History clonidine HCl 0.1 mg PO BID 03/27/18 03/27/18 History docusate sodium 100 mg PO BID PRN 03/27/18 03/27/18 History enoxaparin 40 mg SUBCUT DAILY 03/27/18 03/27/18 History lisinopril 40 mg PO DAILY 03/27/18 03/27/18 History magnesium hydroxide [Milk Of 30 ml PO DAILY PRN 03/27/18 03/27/18 History Magnesia Concentrated] polyethylene glycol 3350 [Miralax] 17 g PO DAILY PRN 03/27/18 03/27/18 History sennosides-docusate sodium 1 tab PO .DAILY@LUNCH 03/27/18 03/27/18 History [Senokot-S] sodium phosphates [Fleet Enema] 118 ml RI DAILY PRN 03/27/18 03/27/18 History Patient History Medical History Heart attack (Acute) Anxiety (Chronic) Family History Other Cancer Diabetes Heart disease Hypertension Social History marital status: Current Living Situation: Rehab Other Information That Helps Us Care for You: No Feels Safe at Home: Yes Smoking Status: Unknown if ever smoked Hx Alcohol Use: No Hx Substance Use: No Beliefs That Will Affect Care: None Communication Ability: Impaired Communication Ability Comment: PROGRESSION OF CVA AT THIS TIME Education Courses Sales Representative Required: No Review of Systems A review of systems cannot be obtained given patient's global aphasia Physical Exam 2 Vital Signs (Past 24 Hours): Last Vital Signs Temp 37.3 C 03/28/18 07:35 Pulse 60 03/28/18 07:35 Resp 16 03/28/18 07:35 BP 172/93 H 03/28/18 07:35 Pulse Ox 94 03/28/18 07:35 Physical Exam: The patient is a well-developed elderly female. She is lying comfortably in bed. She is alert. Orientation cannot be assessed due to her global aphasia. Memory cannot be assessed. Attention seems normal. Concentration cannot be assessed. Patient is unable to name objects or repeat phrases. She is able to follow very simple commands but otherwise language comprehension seems very limited. Fund of knowledge cannot be assessed. Visual zuniga grossly full to confrontation. Visual acuity cannot be assessed. Pupils equal round reactive to light and accommodation. Eye movements intact. No gaze preference. No nystagmus. Facial sensation cannot be assessed. There is a right lower facial droop present. Hearing intact. Palate elevates to midline. Shoulder shrug weak on the right. Tongue protrudes to midline. Sensation cannot be assessed. Deep tendon reflexes are notably brisk for the right arm and leg relative to the left. The right plantar response is upgoing. Left plantar response downgoing. There is no dysdiadochokinesia or dysmetria finger to nose or heel to alvares on the left. Patient unable to perform these maneuvers on the right due to a dense hemiplegia. Ophthalmoscopic examination reveals normal-appearing optic disks and posterior segments. No papilledema or hemorrhages. Carotid pulses normal bilaterally, no bruits to auscultation. Gait and station cannot be tested. Patient has a dense right hemiplegia with 0 out of 5 strength for the right arm and perhaps 1 out of 5 strength for the right leg. Strength for the left arm and leg normal. Muscle tone for the right arm and leg flaccid. Tone for the left arm and leg normal. No atrophy. No abnormal movements observed. Results & Data Laboratory Results A CBC and conference of metabolic panel completed this morning are unremarkable. Diagnostic Findings I reviewed the images as well as the radiologist interpretation of the CT of the head and CT angiography of the head and neck as described in the history of present illness. An electrocardiogram completed yesterday revealed a normal sinus rhythm, 62 bpm.
[2018-03-28] MEDS: ASPIRIN 81 MG ECTAB PO SCH (11:02)
[2018-03-28] MEDS: cloNIDine HCl 0.1 MG TAB PO SCH ×2 (11:02→20:28)
[2018-03-28] MEDS: CLOPIDOGREL BISULFATE 75 MG TAB PO SCH (11:02)
[2018-03-28] MEDS: EZETIMIBE 10 MG TABLET PO SCH (11:02)
[2018-03-28] MEDS: DULOXETINE HCL 20 MG CAP PO SCH (11:03)
[2018-03-28] MEDS: PANTOprazole 40 MG TAB PO SCH ×2 (11:03→20:28)
[2018-03-28] MEDS: PRAVASTATIN SOD 40 MG TAB PO SCH (11:03)
[2018-03-28] MEDS ORDERED: GADOBUTROL 65ML VIAL IV PRN (14:34)
--- NOTE | 2018-03-28 14:48 | Magnetic Resonance Report ---
MRI OF THE BRAIN COMBO CLINICAL HISTORY: Stroke. COMPARISON STUDY: CT of the brain dated 03/27/2018. MRI of the brain dated 03/20/2018. TECHNIQUE: MRI of the brain was performed utilizing various T1 and T2-weighted sequences in the axial , sagittal, and coronal planes. Contrast-enhanced sequences were acquired following the administratio n of 8 cc of Gadavist. The examination is degraded by motion artifact. FINDINGS: Brain parenchyma: There is extensive confluent restricted diffusion seen throughout the left subcorti noelle and periventricular white matter. There is also restricted diffusion identified within the bhagat hed region of the left posterior temporal lobe. More patchy foci of restricted diffusion are seen wit hin the left frontal white matter. This has significantly progressed from the 03/20/2018 examination is consistent with acute to subacute ischemia. There is no hemorrhage or midline shift. No foci of rest ricted diffusion are identified within the right hemisphere. No enhancing mass lesion is identified o n the postcontrast images. There are age-related involutional changes noting moderate subcortical and periventricular moderate arthropathic disease. The cerebellar tonsils are normal in configuration. Ventricles, sulci, and cisterns: Prominent secondary to involutional change. Pituitary and sella: Unremarkable. Intracranial vasculature: There is loss of the right vertebral artery flow-void at the skull base. Th e left vertebral artery is dominant. The carotid flow voids are maintained. Orbits: The bony orbits are grossly intact. Orbital contents are normal in appearance. Sinuses and mastoids: Clear. Calvarium: Unremarkable. Cervical cord: Partially visualized cervical spinal cord is normal in morphology and signal intensity . IMPRESSION: 1. There is extensive confluent restricted diffusion identified throughout the left MCA territory, pr edominantly involving the subcortical and periventricular white matter as well as the watershed regio n of the left posterior temporal lobe. This is consistent with acute to subacute ischemia, and has si gnificantly progressed from the 03/20/2018 examination. 2. No foci of restricted diffusion are identified within the right hemisphere. 3. There is no hemorrhage or midline shift. Electronically signed by: Josue Corral M.D. 03/28/2018 2:47 PM
--- NOTE | 2018-03-28 17:33 | Family Medicine Progress Note ---
Date of Service March 28, 2018 Assessment & Plan (1) Left acute arterial ischemic stroke, MCA (middle cerebral artery): Daja Spivey is a 67 y.o female with history of CAD s/p 2 stents, GERD , HTN, HLD, anxiety and recent CVA admitted for ischemic stroke management. 1. CVA - Left acute arterial Ischemic stroke - Evolving left middle cerebral artery territory infarct with occlusion of left M1 segment on CTA -Per further history the patient was experiencing stroke-like symptoms ( confusion/aphasia) since seen at [facility] ED on 03/19 and after discharge from [facility] rehab at 1200 on 03/27 -CT head negative on 03/19 with recommendation for brain MRI but pt declined and pt left the hospital -Seen by PCP on 03/20 and presented to the ED during the evening of 03/20 with complaint of speech deficit - MRI completed in ED on 03/20 showed left sided stroke (subacute infarct in left temporal and parietal lobes) with CTA confirming MCA occlusion -Hospitalized from 03/20-03/22 for management of CVA with initiation of Plavix and Pravastatin -Further recs during 03/20-03/22 hospitalization to take co-Q10 to prevent myalgias , was noted to be intolerant of plavix -Admitted to [facility] for rehab and discharged on 03/27; tolerated ASA and statin at [facility] - CTA on 03/27 showed progressive low-attenuation throughout left-sided subcortical and periventricular white matter (consistent with evolving infarcts) - Recommendations made for transfer to outside facility in [place] for possible thrombectomy -Son declined transfer except to [facility] [place] -On morning of 03/28 decision made to cancel transfer due to complete occlution of M1 branch and LMCA and inclement weather. -Neuro evaluated on 03/28 and appreciate recommendations: continue ASA and Plavix Allow for permissive HTN SBP bw 160-180 -MRI of brain completed on 03/28 consistent with progressive subacute ischemia -Currently the pt is stable and has a global aphasia with right hemiplegia - Will plan to continue stroke protocol with neuro checks, speech eval, PT/OT -Hasn't been able to tolerate statin. Last admission was put on pravastatin and became nauseous at [facility] so stopped. Will retry. HTN: - Hold home medications (lisinopril and clonidine) -Hold atenolol CAD: Continue ASA, Plavix Hold Statin but consider adding as she tolerated it at [facility] GERD: Switch PPI to zantac to avoid limitation in effective of plavix. Anxiety: Hold Duloxetine, Lorazepam until cleared by speech FEN/GI Fluids: NS at 100cc/hr Electrolytes: Monitor and replace as needed Nutrition: NPO DVT PPX: SCD GI PPX: None Code status: Full code Dispo: Continue inpatient admission on tele monitoring for management of ischemic stroke. (2) Dysarthria as late effect of cerebrovascular accident (CVA): (3) Global aphasia: (4) Right hemiplegia: (5) CAD (coronary artery disease): (6) Hypercholesterolemia with LDL greater than 190 mg/dL: Supervising Physician Co-Signing Physician Notes Resident Physician Supervision Note: I independently interviewed and examined the patient and verified the olmos history and physical, reviewed labs and image studies, discussed the case with the resident Dr. Villafana and agree with the findings and care plan. Extensive discussion with Dr. Knott over the phone about management, need for transfer - He recommended patient will not benefit from interventional procedure considering complete occlusion of the M1 artery. I called Santana Asuncion neuro interventionalist quality control projectionist. Updated daughter who was going to update the two sons of patient. Subjective Daja Spivey is lying in bed and has difficulty communicating to me. She is able to understand what I am saying but responses are unclear. Is tolerating pureed foods well. Denies pain but feels slightly lightheaded. Unable to obtain complete review of symptoms due to CVA. Physical Exam 2 Vital Signs (Past 24 Hours): Last Vital Signs Temp 36.9 C 03/28/18 15:36 Pulse 65 03/28/18 15:36 Resp 18 03/28/18 15:36 BP 94/56 L 03/28/18 15:36 Pulse Ox 92 03/28/18 15:36 Constitutional: well developed, well nourished and cooperative; no acute distress Eyes: PERRL and EOM intact bilaterally ENMT: external ear and nose normal, oropharynx normal Throat: uvula midline dry mucus membranes no dentition present Neck: neck supple nttp ROM intact Respiratory: normal respiratory effort, lungs clear to auscultation no respiratory distress Auscultation: no rales, no rhonchi and no wheezes Cardiovascular: RRR, no murmur, no edema Heart Sounds: normal S1 and normal S2 Vessels: normal peripheral pulses Gastrointestinal (Abdomen): Inspection/Auscultation: abdomen normal to inspection Percussion/Palpation: abdomen soft; abdomen nontender bowel sounds decreased Musculoskeletal: Strength of LUE and LLE are 5/5 Strength of RUE and RLE are 1/5 Skin: no rashes, warm and dry Neurologic: CN II - intact CN VII- unable to bite down/smile on command CN VIII intact Unable to evaluate CN IX and X CN XI-deficit CN XII- Unable to stick tongue out/swallow on command Sensation intact on left side of body; sensation deficit on right side of body Psychiatric: Orientation: alert and cooperative Results & Data Diagnostic Findings Brain MRI from 03/28 1. There is extensive confluent restricted diffusion identified throughout the left MCA territory, predominantly involving the subcortical and periventricular white matter as well as the watershed region of the left posterior temporal lobe. This is consistent with acute to subacute ischemia, and has significantly progressed from the 03/20/2018 examination. 2. No foci of restricted diffusion are identified within the right hemisphere. 3. There is no hemorrhage or midline shift. Neck CTA 1. There is no hemorrhage, mass effect, or evidence of acute territorial ischemia by CT criteria on this angiographic phase examination. 2. 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 This is unchanged from 03/21/2018. 3. The right vertebral artery at the skull base is diminutive and largely thrombosed. This is unchanged from 03/21/2018. 4. Unremarkable CT angiogram of the neck. 5. An aberrant right subclavian artery is incidentally noted.
[2018-03-28] MEDS: FENOFIBRATE NANOCRYSTALLIZED 48 MG TABLET PO SCH (20:28)
[2018-03-29 07:09] LABS: Basophils # (auto) 0.03 K/uL (0-0.2); Basophils % (auto) 0.4 %; Eosinophils # (auto) 0.03 K/uL (0-0.5); Eosinophils % (auto) 0.4 %; Hematocrit (blood only) 37.3 % (37-47); Hemoglobin 12.4 g/dL (12.0-16.0); Immature Granulocytes # (auto) 0.02 K/uL (0.00-0.02); Immature Granulocytes % (auto) 0.3 %; Lymphocytes # (auto) 1.51 K/uL (1.2-3.4); Lymphocytes % (auto) 22.1 %; Mean Corpuscular Hgb Conc 33.2 g/dL (32-36); Mean Corpuscular Volume 85.4 fL (80-100); Mean Platelet Volume 10.2 fL (7.4-10.4); Monocytes # (auto) 0.47 K/uL (0.11-0.59); Monocytes % (auto) 6.9 %; Neutrophils # (auto) 4.77 K/uL (1.4-6.5); Neutrophils % (auto) 69.9 %; Platelet Count 224 K/uL (130-400); RDW Standard Deviation 40.9 fL (36.4-46.3); Red Blood Count 4.37 M/uL (4.2-5.4); White Blood Count 6.83 K/uL (4.8-10.8)
[2018-03-29] MEDS: SODIUM CHLORIDE 0.9% 1000ML 1,000 ML IV SCH ×2 (07:12→15:27)
[2018-03-29 07:51] LABS: Albumin Level 2.9 gm/dl (3.4-5.0); BUN Creatinine Ratio 18.9 (10-20); Calcium 7.9 mg/dl (8.5-10.1); Creatinine Clr Calc Pharmacy 94.7 ml/min; Est GFR (African American) 107.6; Est GFR (Non-African American) 92.8; Potassium 3.5 mmol/L (3.5-5.1)
[2018-03-29 07:53] LABS: Albumin Globulin Ratio 0.9 (0.9-2); Bilirubin,Total 0.4 mg/dl (0.2-1); Globulin 3.1 gm/dl (2.5-4.0)
[2018-03-29] MEDS: CLOPIDOGREL BISULFATE 75 MG TAB PO SCH (08:38)
[2018-03-29] MEDS: cloNIDine HCl 0.1 MG TAB PO SCH (08:39)
[2018-03-29] MEDS: ASPIRIN 81 MG ECTAB PO SCH (08:40)
[2018-03-29] MEDS: DULOXETINE HCL 20 MG CAP PO SCH ×2 (08:40→15:24)
[2018-03-29] MEDS: PRAVASTATIN SOD 40 MG TAB PO SCH (08:42)
[2018-03-29] MEDS: EZETIMIBE 10 MG TABLET PO SCH (08:43)
[2018-03-29] MEDS: RANITIDINE HCL SYRUP 150 MG/10 ML UDC PO SCH ×2 (08:43→20:02)
--- NOTE | 2018-03-29 10:26 | Neurology Progress Note ---
Date of Service March 29, 2018 Assessment & Plan (1) Left acute arterial ischemic stroke, MCA (middle cerebral artery): This patient has a persistent, severe, global aphasia and right hemiplegia , (face and arm greater than leg) as a result of extension of a previously identified left MCA territory ischemic stroke. Her CT angiography suggests near complete to complete occlusion of the left M1 segment with distal reconstitution which appears unchanged. The reason for her stroke extension is not completely clear although thrombus progression and/or further hypoperfusion injury are possible. Intra-arterial thrombectomy or thrombolysis would be very high risk, especially at this point in time, and would not likely be offered at a tertiary center. Case discussed with Dr. Wyatt, hospitalist. Continue supportive medical care. Continue with permissive hypertension and neuro checks. Would recommend obtaining a repeat CT of the head without contrast tomorrow to evaluate for hemorrhagic transformation. Subjective Follow-up for stroke The patient is a 67-year-old female who was readmitted to the hospital for extension of a previously identified left MCA territory stroke. Clinically, she has a significant mixed aphasia and a dense right hemiplegia. She is unable to provide a history of present illness or answer questions pertaining to a review of systems due to her considerable aphasia. She did complete the requested follow-up brain MRI yesterday. I reviewed the images as well as the radiologist interpretation of this test. The study reveals significant progression of the previously identified left MCA territory stroke. The stroke is primarily subcortical and periventricular in location with an element of a posterior watershed distribution extending to the cortex. There is no evidence of hemorrhage. Physical Exam 2 Vital Signs (Past 24 Hours): Last Vital Signs Temp 36.8 C 03/29/18 06:48 Pulse 61 03/29/18 09:00 Resp 16 03/29/18 06:48 BP 183/84 H 03/29/18 09:00 Pulse Ox 96 03/29/18 06:48 Physical Exam: The patient is alert. Orientation cannot be assessed due to her considerable mixed aphasia. Patient is unable to name objects or repeat phrases. She has difficulty with language comprehension and is unable to follow commands. Attention seems normal. Concentration impaired. Fund of knowledge cannot be assessed. Assessment of visual zuniga suggest that there may be an element of right hemifield neglect with confrontation testing. Again , her considerable aphasia makes this evaluation difficult. Pupils equal round reactive to light. There is no gaze preference. There is no nystagmus. There is a right lower facial droop noted. Palate elevates to midline. Tongue protrudes to midline. Deep tendon reflexes are relatively increased for the right arm and leg as compared to the left. The right plantar response is upgoing, left plantar response downgoing. Patient has a dense right hemiplegia with strength 0 out of 5 for the upper extremity and either 1 or 2 for the right lower extremity. Again, patient's aphasia makes a reliable strength assessment difficult.
--- NOTE | 2018-03-29 15:19 | Family Medicine Progress Note ---
Date of Service March 29, 2018 Assessment & Plan (1) Left acute arterial ischemic stroke, MCA (middle cerebral artery): Daja Spivey is a 67 y.o female with history of CAD s/p 2 stents, GERD , HTN, HLD, anxiety and recent CVA admitted with evolving ischemic stroke for ischemic stroke management. 1. CVA - Left acute arterial Ischemic stroke - Evolving left middle cerebral artery territory infarct with occlusion of left M1 segment on CTA -Per further history the patient was experiencing stroke-like symptoms ( confusion/aphasia) since seen at [facility] ED on 03/19 and after discharge from [facility] rehab at 1200 on 03/27 -CT head negative on 03/19 with recommendation for brain MRI but pt declined and pt left the hospital -Seen by PCP on 03/20 and presented to the ED during the evening of 03/20 with complaint of speech deficit - MRI completed in ED on 03/20 showed left sided stroke (subacute infarct in left temporal and parietal lobes) with CTA confirming MCA occlusion -Hospitalized from 03/20-03/22 for management of CVA with initiation of Plavix and Pravastatin -Further recs during 03/20-03/22 hospitalization to take co-Q10 to prevent myalgias , was noted to be intolerant of plavix -Admitted to [facility] for rehab and discharged on 03/27; tolerated ASA and statin at [facility] - CTA on 03/27 showed progressive low-attenuation throughout left-sided subcortical and periventricular white matter (consistent with evolving infarcts) - Recommendations made for transfer to outside facility in [place] for possible thrombectomy -Son declined transfer except to [facility] -On morning of 03/28 decision made to cancel transfer due to complete occlusion of M1 branch and LMCA and inclement weather. -Neuro evaluated on 03/28 and appreciate recommendations: continue ASA and Plavix, has been tolerating Pravastatin this admission and will continue - has h/o statin intolerance in past Allow for permissive HTN SBP bw 160-180; clonidine discontinued in AM on 2018 which resulted in a prior blood pressure of 90s/60s -MRI of brain completed on 03/28 consistent with progressive subacute ischemia -Currently the pt is stable and has a global aphasia with right hemiplegia -- Will plan to continue stroke protocol with neuro checks, speech eval, PT/OT -On 03/29 discussion held with Neurologist Dr. Griffin and his recommendations are appreciated: reason for evolving stroke may be due to thrombus progression or further hypoperfusion injury; there are currently no recommended interventions of intra-arterial thrombectomy/thrombolysis as the risk would be very high at this point -Further recs per Dr. Griffin to repeat CT head w/o contrast on 03/30 -Per discussion with the family they would like a second opinion from [place] or [facility] HTN: - Please allow for permissive hypertension - Hold home medications (lisinopril and clonidine) -Clonidine discontinued in AM on 03/29/2018 -Hold atenolol CAD: Continue ASA, Plavix, Statin GERD: Switch PPI to zantac to avoid limitation in effective of plavix. Anxiety: Hold Duloxetine, Lorazepam until cleared by speech FEN/GI Fluids: NS at 100cc/hr Electrolytes: Monitor and replace as needed Nutrition: Pureed diet with aspiration precautions DVT PPX: SCD GI PPX: None Code status: Full code Dispo: Continue inpatient admission on tele monitoring for management of ischemic stroke with likely transfer to outside facility. (2) Right hemiplegia: (3) Global aphasia: (4) CAD (coronary artery disease): Supervising Physician Co-Signing Physician Notes Resident Physician Supervision Note: I independently interviewed and examined the patient and verified the olmos history and physical, reviewed labs and image studies, discussed the case with the resident Dr. Villafana and agree with the findings and care plan. Spoke to patient's daughter and Dr. Knott, neurologist in [place] and plan to transfer to [facility] in am for second opinion and higher level of care. Subjective No acute overnight events per nursing. Ms. Spivey is awake and lying in bed. She is unable to have a conversation with me but understands all that is spoken. When asked if she is having any pain she responds with no. When asked if she is tolerating PO well, she responds with yes. Review of Systems Unobtainable due to cognitive status (Pt has global aphasia from ischemic stroke ) Physical Exam 2 Vital Signs (Past 24 Hours): Last Vital Signs Temp 36.8 C 03/29/18 06:48 Pulse 61 03/29/18 09:00 Resp 16 03/29/18 06:48 BP 183/84 H 03/29/18 09:00 Pulse Ox 96 03/29/18 06:48 Constitutional: well developed, well nourished and cooperative; no acute distress Eyes: PERRL and EOM intact bilaterally ENMT: external ear and nose normal, oropharynx normal Throat: uvula midline Respiratory: normal respiratory effort, lungs clear to auscultation no respiratory distress Auscultation: no rales, no rhonchi and no wheezes Cardiovascular: RRR, no murmur, no edema Heart Sounds: normal S1 and normal S2 Vessels: normal peripheral pulses Gastrointestinal (Abdomen): Inspection/Auscultation: abdomen normal to inspection Percussion/Palpation: abdomen soft; abdomen nontender Musculoskeletal: Strength of LUE and LLE are 5/5 Strength of RUE and RLE are 1/5 Skin: no rashes, warm and dry Neurologic: CN II - intact CN VII- unable to bite down. smile on command has improved since exam on 03/28 but with continued right sided facial droop CN VIII intact Unable to evaluate CN IX and X CN XI-deficit CN XII- Unable to stick tongue out/swallow on command Psychiatric: Orientation: alert and cooperative
[2018-03-29] MEDS: FENOFIBRATE NANOCRYSTALLIZED 48 MG TABLET PO SCH (20:02)
[2018-03-30] MEDS: SODIUM CHLORIDE 0.9% 1000ML 1,000 ML IV SCH (02:22)
[2018-03-30] MEDS: EZETIMIBE 10 MG TABLET PO SCH (08:06)
[2018-03-30] MEDS: CLOPIDOGREL BISULFATE 75 MG TAB PO SCH (08:06)
[2018-03-30] MEDS: RANITIDINE HCL SYRUP 150 MG/10 ML UDC PO SCH ×2 (08:06→21:50)
[2018-03-30] MEDS: DULOXETINE HCL 20 MG CAP PO SCH (08:06)
[2018-03-30] MEDS: PRAVASTATIN SOD 40 MG TAB PO SCH (08:06)
[2018-03-30] MEDS: ASPIRIN 81 MG CHEW PO SCH (09:45)
--- NOTE | 2018-03-30 18:36 | Family Medicine Progress Note ---
Date of Service March 30, 2018 Assessment & Plan (1) Left acute arterial ischemic stroke, MCA (middle cerebral artery): Left acute arterial ischemic stroke, MCA (middle cerebral artery): Daja Spivey is a 67 y.o female with history of CAD s/p 2 stents, GERD, HTN, HLD, anxiety and recent CVA admitted with evolving ischemic stroke for ischemic stroke management now planning to transfer to [facility] for further management. 1. CVA - Left acute arterial Ischemic stroke - Evolving left middle cerebral artery territory infarct with occlusion of left M1 segment on CTA -Per further history the patient was experiencing stroke-like symptoms ( confusion/aphasia) since seen at [facility] ED on 03/19 and after discharge from [facility] rehab at 1200 on 03/27 -CT head negative on 03/19 with recommendation for brain MRI but pt declined and pt left the hospital -Seen by PCP on 03/20 and presented to the ED during the evening of 03/20 with complaint of speech deficit - MRI completed in ED on 03/20 showed left sided stroke (subacute infarct in left temporal and parietal lobes) with CTA confirming MCA occlusion -Hospitalized from 03/20-03/22 for management of CVA with initiation of Plavix and Pravastatin -Further recs during 03/20-03/22 hospitalization to take co-Q10 to prevent myalgias , was noted to be intolerant of plavix -Admitted to [facility] for rehab and discharged on 03/27; tolerated ASA and statin at [facility] - CTA on 03/27 showed progressive low-attenuation throughout left-sided subcortical and periventricular white matter (consistent with evolving infarcts) - Recommendations made for transfer to outside facility in [place] for possible thrombectomy -Son declined transfer except to [facility] -On morning of 03/28 decision made to cancel transfer due to complete occlusion of M1 branch and LMCA and inclement weather. -Neuro evaluated on 03/28 and appreciate recommendations: continue ASA and Plavix, has been tolerating Pravastatin this admission and will continue - has h/o statin intolerance in past Allow for permissive HTN SBP bw 160-180; clonidine discontinued in AM on 2018 which resulted in a prior blood pressure of 90s/60s -MRI of brain completed on 03/28 consistent with progressive subacute ischemia -Currently the pt is stable and has a global aphasia with right hemiplegia -- Will plan to continue stroke protocol with neuro checks, PT/OT -On 03/29 discussion held with Neurologist Dr. Griffin and his recommendations are appreciated: reason for evolving stroke may be due to thrombus progression or further hypoperfusion injury; there are currently no recommended interventions of intra-arterial thrombectomy/thrombolysis as the risk would be very high at this point -Further recs per Dr. Griffin to repeat CT head w/o contrast on 03/30 but not completed due to pending transfer to [facility] -Patient accepted at [facility] for further management and transfer is pending - Speech has signed off as patient will be transferring to [facility] HTN: - Continue permissive hypertension - Lisinopril, Clonidine, and Atenolol held -Clonidine discontinued in AM on 03/29/2018 CAD: Continue ASA, Plavix, Statin GERD: Continue Zantac to avoid limitation in effective of plavix. Anxiety: Hold Duloxetine, and Lorazepam ( will discuss with speech on 03/31) FEN/GI Fluids: None Electrolytes: Monitor and replace as needed Nutrition: Pureed diet with aspiration precautions DVT PPX: SCD GI PPX: None Code status: Full code Dispo: Continue inpatient admission on tele monitoring for management of ischemic stroke with plan to transfer to [facility]. (2) Right hemiplegia: (3) Global aphasia: Supervising Physician Co-Signing Physician Notes Resident Physician Supervision Note: I independently interviewed and examined the patient and verified the olmos history and physical, reviewed labs and image studies, discussed the case with the resident Dr. Villafana and agree with the findings and care plan. Subjective No acute events per nursing. This morning the patient is sitting up in bed and smiling. Her niece is at the bedside. States that she remembers me. She is tolerating PO pureed foods well. She denies pain, n/v, diarrhea. Frustration expressed by Daja as she is unable to communicate effectively. Review of Systems Unobtainable due to cognitive status (Due to left ischemic stroke, she has a global aphasia.) Physical Exam 2 Vital Signs (Past 24 Hours): Last Vital Signs Temp 36.8 C 03/30/18 16:27 Pulse 69 03/30/18 16:27 Resp 18 03/30/18 16:27 BP 187/89 H 03/30/18 16:27 Pulse Ox 94 03/30/18 16:27 Constitutional: well developed, well nourished and cooperative; no acute distress Eyes: PERRL and EOM intact bilaterally ENMT: external ear and nose normal, oropharynx normal Throat: uvula midline Respiratory: normal respiratory effort, lungs clear to auscultation no respiratory distress Auscultation: no rales and no wheezes Cardiovascular: RRR, no murmur, no edema Heart Sounds: normal S1 and normal S2 Vessels: normal peripheral pulses Gastrointestinal (Abdomen): Inspection/Auscultation: abdomen normal to inspection Percussion/Palpation: abdomen soft; abdomen nontender Skin: no rashes, warm and dry Neurologic: Reflexes intact (brachioradialis/knee jerk) intact CN II - intact CN VII- unable to bite down. smile on command has improved since exam on 03/28 but with continued right sided facial droop CN VIII intact Psychiatric: Orientation: alert and cooperative
[2018-03-30] MEDS: FENOFIBRATE NANOCRYSTALLIZED 48 MG TABLET PO SCH (21:50)
[2018-03-30] MEDS: ACETAMINOPHEN 325 MG TAB PO PRN (23:42)
[2018-03-31] MEDS: ASPIRIN 81 MG CHEW PO SCH (08:16)
[2018-03-31] MEDS: EZETIMIBE 10 MG TABLET PO SCH (08:16)
[2018-03-31] MEDS: CLOPIDOGREL BISULFATE 75 MG TAB PO SCH (08:16)
[2018-03-31] MEDS: DULOXETINE HCL 20 MG CAP PO SCH (08:16)
[2018-03-31] MEDS: PRAVASTATIN SOD 40 MG TAB PO SCH (08:16)
[2018-03-31] MEDS: RANITIDINE HCL SYRUP 150 MG/10 ML UDC PO SCH ×2 (08:17→21:12)
--- NOTE | 2018-03-31 09:57 | Neurology Progress Note ---
Date of Service March 31, 2018 Assessment & Plan (1) Left acute arterial ischemic stroke, MCA (middle cerebral artery): Left MCA territory infarct, primarily subcortical/periventricular with some extension to the cortex posteriorly in the parieto-occipital watershed region. Clinically, this patient has a significant global aphasia and right hemiplegia. She is clinically stable since my last assessment of her. I would like her to have a follow-up CT of the head completed today to exclude any evidence of hemorrhagic transformation. Continue with permissive hypertension. Continue with antiplatelet therapy. Transfer to [facility] or another tertiary center is pending. Subjective Follow-up for stroke The patient is a 67-year-old female with a recent left MCA territory infarct. She has a significant mixed aphasia and hemiplegia. Her clinical status is not significantly changed since my last assessment of her. She remains unable to provide any details pertaining to her history of present illness due to her aphasia. As her comprehension remains significantly impaired she is unable to answer specific questions pertaining to a review of systems. Her case has been discussed with Dr. Wyatt. A transfer to a tertiary center for a second opinion and rehabilitation is pending. Physical Exam 2 Vital Signs (Past 24 Hours): Last Vital Signs Temp 36.9 C 03/31/18 07:05 Pulse 56 L 03/31/18 07:05 Resp 18 03/31/18 07:05 BP 174/83 H 03/31/18 07:05 Pulse Ox 97 03/31/18 07:05 Physical Exam: As above, the patient continues to exhibit a significant global aphasia. She is unable to name objects or repeat phrases. Comprehension is significantly impaired as well. She is able to mimic simple commands such as smile and she will lift up her left arm as well. Pupils equal round reactive to light and accommodation. Eye movements intact. There is no gaze preference. There is flattening of the right nasolabial fold. Palate elevates to midline. Tongue protrudes to midline. Patient continues to exhibit a significant right hemiplegia. Right upper extremity 0-1 out of 5. No volitional movement of the hand, however. Muscle tone is increased for the right upper extremity as well. Right lower extremity strength 1 out of 5. Muscle strength for the left arm and leg are normal. Deep tendon reflexes are increased for the right arm and leg as well there is a Babinski response with plantar stimulation on the right.
--- NOTE | 2018-03-31 10:40 | CT Scan Report ---
CT head/brain wo con CT DOSE: 729.78 mGycm HISTORY: Stroke stroke, r/o hemorrhage TECHNIQUE: Multiaxial CT images of the head were performed without the use of intravenous contrast. A dose lowering technique was utilized adhering to the principles of ALARA. Comparison: 03/27/2017 Findings: The paranasal sinuses and mastoid air cells are clear. Findings of a left middle cerebral a rterial infarct. This is unchanged in the prior exam. No evidence for acute intracranial hemorrhage. No midline shift. Impression: Unchanging left middle cerebral arterial infarct. No evidence for acute intracranial hemorrhage. The above report was generated using voice recognition software. It may contain grammatical, syntax or spelling errors. Electronically signed by: Flip Beckwith M.D. 03/31/2018 10:39 AM
--- NOTE | 2018-03-31 13:53 | Family Medicine Progress Note ---
Date of Service March 31, 2018 Assessment & Plan (1) Left acute arterial ischemic stroke, MCA (middle cerebral artery): Left acute arterial ischemic stroke, MCA (middle cerebral artery): Daja Spivey is a 67 y.o female with history of CAD s/p 2 stents, GERD, HTN, HLD, anxiety and recent CVA admitted with evolving ischemic stroke for ischemic stroke management now waiting for transfer to [facility] for further management. 1. CVA - Left acute arterial Ischemic stroke - Admitted with evolving left middle cerebral artery territory infarct with occlusion of left M1 segment on CTA -Per further history the patient was experiencing stroke-like symptoms ( confusion/aphasia) since seen at [facility] ED on 03/19 and after discharge from [facility] rehab at 1200 on 03/27 -CT head negative on 03/19 with recommendation for brain MRI but pt declined and pt left the hospital -Seen by PCP on 03/20 and presented to the ED during the evening of 03/20 with complaint of speech deficit - MRI completed in ED on 03/20 showed left sided stroke (subacute infarct in left temporal and parietal lobes) with CTA confirming MCA occlusion -Hospitalized from 03/20-03/22 for management of CVA with initiation of Plavix and Pravastatin -Further recs during 03/20-03/22 hospitalization to take co-Q10 to prevent myalgias , was noted to be intolerant of plavix -Admitted to [facility] for rehab and discharged on 03/27; tolerated ASA and statin at [facility] - CTA on 03/27 showed progressive low-attenuation throughout left-sided subcortical and periventricular white matter (consistent with evolving infarcts) - Recommendations made for transfer to outside facility in [place] for possible thrombectomy -Son declined transfer except to [facility] -On morning of 03/28 decision made to cancel transfer due to complete occlusion of M1 branch and LMCA and inclement weather. -Per Dr Griffin: reason for evolving stroke may be due to thrombus progression or further hypoperfusion injury; there are currently no recommended interventions of intra-arterial thrombectomy/thrombolysis as the risk would be very high at this point -MRI of brain completed on 03/28 consistent with progressive subacute ischemia -Currently the pt is stable and has a global aphasia with right hemiplegia -CT head completed on 03/31 showed left middle cerebral arterior infarct without change from CT head on 03/28 -continue ASA and Plavix, has been tolerating Pravastatin this admission and will continue - has h/o statin intolerance in past Allow for permissive HTN SBP bw 160-180; clonidine discontinued in AM on 2018 which resulted in a prior blood pressure of 90s/60s -Tele monitor showing sinus rhythm -Will plan to continue PT/OT/Speech Therapy until transfer Transfer: -Patient accepted at [facility] for further management and transfer is pending bed availability at [facility]. If unable to get to [facility] - will transfer to [facility] facility. Process initiated. HTN: - Continue permissive hypertension - Lisinopril, Clonidine, and Atenolol held -Clonidine discontinued in AM on 03/29/2018 CAD: Continue ASA, Plavix, Statin GERD: Continue Zantac to avoid limitation in effective of plavix. Anxiety: Duloxetine daily Lorazepam (on hold) FEN/GI Fluids: None Electrolytes: Monitor and replace as needed Nutrition: Pureed diet with aspiration precautions DVT PPX: SCD GI PPX: None Code status: Full code Dispo: Continue inpatient admission on tele monitoring for management of ischemic stroke with plan to transfer to [facility] when bed available. (2) Right hemiplegia: (3) Global aphasia: Supervising Physician Co-Signing Physician Notes Resident Physician Supervision Note: I independently interviewed and examined the patient and verified the olmos history and physical, reviewed labs and image studies, discussed the case with the resident Dr. Villafana and agree with the findings and care plan. Multiple discussions with daughter Rosalba about patient transfer to [facility]. Spoke to Dr. Knott - still waiting on bed at [facility]. If unable to transfer to [facility] - to start process of getting transferred to acute rehab in [place]. Process initiated. hose coupling joiner updated. Subjective No acute events overnight. Nursing assisted with breakfast and Ms. Spivey had no difficulty eating. Today Ms. Spivey is resting in bed. When told that we are waiting for [facility] to have an open bed see non-verbally expressed frustration. There have been no episodes of vomiting and she is voiding well. Physical Exam 2 Vital Signs (Past 24 Hours): Last Vital Signs Temp 37.1 C 03/31/18 12:31 Pulse 57 L 03/31/18 12:31 Resp 16 03/31/18 12:31 BP 169/83 H 03/31/18 12:31 Pulse Ox 96 03/31/18 12:31 Constitutional: well developed, well nourished and cooperative; no acute distress Eyes: PERRL and EOM intact bilaterally ENMT: external ear and nose normal, oropharynx normal Throat: uvula midline Respiratory: normal respiratory effort, lungs clear to auscultation no respiratory distress Auscultation: no rales, no rhonchi and no wheezes Cardiovascular: RRR, no murmur, no edema Heart Sounds: normal S1 and normal S2 Vessels: normal peripheral pulses Gastrointestinal (Abdomen): Inspection/Auscultation: abdomen normal to inspection Percussion/Palpation: abdomen soft; abdomen nontender Skin: no rashes, warm and dry Neurologic: deep tendon reflexes 2+ bilaterally and awake Speech / Cognition: + expressive aphasia Cranial Nerves: EOM intact bilaterally, normal facial strength (facial strength decreased), able to rotate head bilaterally and symmetric palate elevation Psychiatric: Orientation: alert and cooperative Results & Data Diagnostic Findings CT head without contrast Findings: The paranasal sinuses and mastoid air cells are clear. Findings of a left middle cerebral arterial infarct. This is unchanged in the prior exam. No evidence for acute intracranial hemorrhage. No midline shift. Impression: Unchanging left middle cerebral arterial infarct. No evidence for acute intracranial hemorrhage.
[2018-03-31] MEDS: LISINOPRIL 40 MG TAB PO SCH (16:01)
[2018-03-31] MEDS ORDERED: AMLODIPINE BESYLATE 5 MG TAB PO ONE (16:36)
[2018-03-31] MEDS: FENOFIBRATE NANOCRYSTALLIZED 48 MG TABLET PO SCH (21:12)
[2018-03-31] MEDS: ACETAMINOPHEN 325 MG TAB PO PRN (21:15)
[2018-04-01 03:50] VITALS: O2SAT 94
[2018-04-01] MEDS: ASPIRIN 81 MG CHEW PO SCH (08:13)
[2018-04-01] MEDS: CLOPIDOGREL BISULFATE 75 MG TAB PO SCH (08:14)
[2018-04-01] MEDS: LISINOPRIL 40 MG TAB PO SCH (08:14)
[2018-04-01] MEDS: EZETIMIBE 10 MG TABLET PO SCH (08:15)
[2018-04-01] MEDS: PRAVASTATIN SOD 40 MG TAB PO SCH (08:15)
[2018-04-01 08:16] LABS: Basophils # (auto) 0.02 K/uL (0-0.2); Basophils % (auto) 0.3 %; Eosinophils # (auto) 0.05 K/uL (0-0.5); Eosinophils % (auto) 0.6 %; Hematocrit (blood only) 40.6 % (37-47); Hemoglobin 13.6 g/dL (12.0-16.0); Immature Granulocytes # (auto) 0.01 K/uL (0.00-0.02); Immature Granulocytes % (auto) 0.1 %; Lymphocytes # (auto) 0.93 K/uL (1.2-3.4); Lymphocytes % (auto) 11.6 %; Mean Corpuscular Hgb Conc 33.5 g/dL (32-36); Mean Corpuscular Volume 83.9 fL (80-100); Mean Platelet Volume 10.9 fL (7.4-10.4); Monocytes # (auto) 0.44 K/uL (0.11-0.59); Monocytes % (auto) 5.5 %; Neutrophils # (auto) 6.55 K/uL (1.4-6.5); Neutrophils % (auto) 81.9 %; Platelet Count 269 K/uL (130-400); RDW Coefficient of Variation 13.3 % (11.5-14.5); Red Blood Count 4.84 M/uL (4.2-5.4)
[2018-04-01] MEDS: RANITIDINE HCL SYRUP 150 MG/10 ML UDC PO SCH (08:16)
[2018-04-01 08:42] LABS: Albumin Level 3.2 gm/dl (3.4-5.0); BUN Creatinine Ratio 21.6 (10-20); Calcium 8.7 mg/dl (8.5-10.1); Creatinine Clr Calc Pharmacy 86.2 ml/min; Est GFR (African American) 104.4; Est GFR (Non-African American) 90.1; Potassium 3.2 mmol/L (3.5-5.1)
[2018-04-01 08:45] LABS: Albumin Globulin Ratio 0.9 (0.9-2); Bilirubin,Total 0.5 mg/dl (0.2-1); Globulin 3.5 gm/dl (2.5-4.0); Total Protein 6.7 gm/dl (6.4-8.2)
[2018-04-01] MEDS ORDERED: AMLODIPINE BESYLATE 5 MG TAB PO SCH (09:00)
[2018-04-01] MEDS: DULOXETINE HCL 20 MG CAP PO SCH (09:49)
[2018-04-01] MEDS ORDERED: POTASSIUM CHLORIDE 20 MEQ TABCR PO STA (10:12)
[2018-04-01 12:00] VITALS: BP 100/62; PULSE 78; TEMP 99.3
[2018-04-01] MEDS ORDERED: STROKE PATIENT DISCHARGE STA (12:43)
[2018-04-01] MEDS ORDERED: ALPRAZolam 0.25 MG TABLET PO ONE (13:19)
--- NOTE | 2018-04-01 14:10 | Discharge Summary ---
Date of Service April 01, 2018 Admission HPI Per Admitting Provider Patient is a 67yo Female who presents with worsening stroke symptoms after being discharged from [facility] earlier today. Patient initially presented to ER on with confusion and aphasia--CT was negative and MRI was recommended due to suspicion of evolving stroke but patient declined and left without further intervention. Patient returned on 03/20 with same symptoms, MRI was performed and showed L sided stroke, CTA confirming MCA occlusion. She was medically optimized and sent to [facility] for rehab on 03/22. Today, she left [facility] at 1100, and acutely at 1200, family noted her to have new R sided weakness and worsening speech, facial droop from previous. Her case was discussed between ER physician and Dr. Knott with stroke neurology at [facility], who recommended stat CTA. Based upon findings of progressive low-attenuation throughout left-sided subcortical and periventricular white matter (indicating evolving infarcts), it was recommended she be transferred to facility for possible endovascular treatment. Due to inclement weather, patient was unable to be transported to [place] on evening of 03/27. [place] was contacted and were willing to accept patient for similar intervention plan, however the son of the patient declined transfer to any facility aside from [place]. He is aware of the risks of delaying potential intervention. Principal Diagnosis Acute Left MCA CVA Discharge Exam Constitutional well developed, well nourished and cooperative; no acute distress Eyes PERRL and EOM intact bilaterally ENMT external ear and nose normal, oropharynx normal Throat: uvula midline Respiratory normal respiratory effort, lungs clear to auscultation no respiratory distress Auscultation: no rales, no rhonchi and no wheezes Cardiovascular RRR, no murmur, no edema Heart Sounds: normal S1 and normal S2 Vessels: normal peripheral pulses Gastrointestinal (Abdomen) Inspection/Auscultation: abdomen normal to inspection Percussion/Palpation: abdomen soft; abdomen nontender Skin no rashes, warm and dry Neurologic deep tendon reflexes 2+ bilaterally and awake Speech / Cognition: + expressive aphasia Cranial Nerves: EOM intact bilaterally, normal facial strength (facial strength decreased), able to rotate head bilaterally and symmetric palate elevation Right side hemiparesis. UE- flaccid. LE - some withdrawal movement. Right side facial droop Psychiatric Orientation: alert and cooperative Discharge Data Allergies Allergy/AdvReac Type Severity Reaction Status Date / Time codeine Allergy Unknown CODEINE Verified 03/19/18 16:04 DERIVATIVES-CODED AFTER TAKING-VERY LOW BP,PASSING latex Allergy Unknown SWELLING Verified 03/19/18 16:04 AT SITE OF CONTACT Wekbylg-Cwa-Zye Reductase AdvReac Unknown MUSCLE Verified 03/27/18 23:29 Inhibitor ACHES analgesics AdvReac Hypotension Uncoded 03/19/18 16:04 Consultations 03/27/18 19:59 ED Decision to Admit Stat 03/28/18 00:02 Consult Case Management - Discharge Planning Routine Consult Neurology Routine 03/28/18 11:36 Burn CD for patient Routine 04/01/18 13:20 Burn CD for patient Stat Ordered Studies 03/27/18 17:21 CT head/brain wo con Stat 03/27/18 17:53 CT angio head w con Stat 03/27/18 18:10 CT angio neck with con Stat 03/28/18 11:00 MR brain wo/w con Routine 03/31/18 09:58 CT head/brain wo con Routine Hospital Course (1) Left acute arterial ischemic stroke, MCA (middle cerebral artery): Left acute arterial ischemic stroke, MCA (middle cerebral artery): Daja Spivey is a 67 y.o female with history of CAD s/p 2 stents, GERD, HTN, HLD, anxiety and recent CVA admitted with evolving ischemic stroke for ischemic stroke management now waiting for transfer to [facility] for further management. 1. CVA - Left acute arterial Ischemic stroke - Admitted with evolving left middle cerebral artery territory infarct with occlusion of left M1 segment on CTA -Per further history the patient was experiencing stroke-like symptoms ( confusion/aphasia) since seen at [facility] ED on 03/19 and after discharge from [facility] rehab at 1200 on 03/27 -CT head negative on 03/19 with recommendation for brain MRI but pt declined and pt left the hospital -Seen by PCP on 03/20 and presented to the ED during the evening of 03/20 with complaint of speech deficit - MRI completed in ED on 03/20 showed left sided stroke (subacute infarct in left temporal and parietal lobes) with CTA confirming MCA occlusion -Hospitalized from 03/20-03/22 for management of CVA with initiation of Plavix and Pravastatin -Further recs during 03/20-03/22 hospitalization to take co-Q10 to prevent myalgias , was noted to be intolerant of plavix -Admitted to [facility] for rehab and discharged on 03/27; tolerated ASA and statin at [facility] - CTA on 03/27 showed progressive low-attenuation throughout left-sided subcortical and periventricular white matter (consistent with evolving infarcts) - Recommendations made for transfer to outside facility in [place] for possible thrombectomy -Son declined transfer except to [facility] -On morning of 03/28 decision made to cancel transfer due to complete occlusion of M1 branch and LMCA and inclement weather. -Per Dr Griffin: reason for evolving stroke may be due to thrombus progression or further hypoperfusion injury; there are currently no recommended interventions of intra-arterial thrombectomy/thrombolysis as the risk would be very high at this point -MRI of brain completed on 03/28 consistent with progressive subacute ischemia -Currently the pt is stable and has a global aphasia with right hemiplegia -CT head completed on 03/31 showed left middle cerebral arterior infarct without change from CT head on 03/28 -continued ASA and Plavix, has been tolerating Pravastatin this admission and will continue - has h/o statin intolerance in past Allow for permissive HTN SBP bw 160-180; clonidine discontinued in AM on 2018 which resulted in a prior blood pressure of 90s/60s Transferred to [facility] for rehab. HTN: - Lisinopril, Clonidine, and Atenolol held initially. - resumed lisinopril. - Later amlodipine added. CAD: Continued ASA, Plavix, Statin GERD: Changed protonix to zantac to avoid limitation in effective of plavix. Anxiety: Duloxetine daily Lorazepam prn Nutrition: Diet advanced to minced and moist. (2) Right hemiplegia: (3) Global aphasia: Total Time Total Time Spent Total Time Spent (In Minutes): 60min Discharge Plan Discharge Items Patient Disposition: Transfer Inpatient Rehab Fac Reason For Visit: PROGRESSION OF CVA Discharge Diagnosis: Evolving left middle cerebral artery territory infarct, Global Aphasia, Right hemiplegia Discharge Goals: Improve function Activity: As commented below Activity Comment: Activity per [facility] recommendations Non-emergency contact: Primary Care Provider Call non-emergency contact if: you have any medication questions Diet: Heart Healthy Diet Texture: Pureed (blended smooth) Addtl Provider Instructions: You have a progressing stroke of the left middle cerebral artery and will need to be transferred to a tertiary care center for further management. You will be transferring to [facility]. You will continue the medications taken at [facility]. You will also need rehabilitation services that will be available in the [place] area. Please f/u with your Primary Care Provider after your stay in [place]. Prescriptions: New amlodipine [Norvasc] 5 mg Tablet 10 mg PO QAM Qty: 1 RF: 0 ranitidine HCl [Zantac] 150 mg tablet 150 mg PO BID Qty: 1 RF: 0 Continue ondansetron HCl 4 mg tablet 4 mg PO Q6 PRN (Reason: Nausea) RF: 0 aspirin [Aspir-81] 81 mg Tablet,Delayed Release (Dr/Ec) 81 mg PO DAILY RF: 0 lorazepam 0.5 mg Tablet 0.5 mg PO TID PRN (Reason: Anxiety) RF: 0 meclizine 25 mg tablet 25 mg PO TID PRN (Reason: Dizziness Or Vertigo) RF: 0 nitroglycerin 0.4 mg Tablet, Sublingual 0.4 mg Sublingual UD RF: 0 nystatin 100,000 unit/gram powder 1 applic topical UD PRN (Reason: Skin Irritation) RF: 0 albuterol sulfate 90 mcg/actuation Hfa Aerosol Inhaler 1 - 2 puff INHALATION Q6H PRN (Reason: Shortness Of Breath Or Wheezing) RF: 0 duloxetine 20 mg capsule,delayed release(DR/EC) 40 mg PO DAILY RF: 0 fenofibrate nanocrystallized 48 mg tablet 48 mg PO HS RF: 0 diclofenac sodium 1 % Gel 2 g TOPICAL UD PRN (Reason: Pain) RF: 0 pravastatin [Pravachol] 40 mg tablet 40 mg PO DAILY Qty: 60 RF: 0 clopidogrel [Plavix] 75 mg tablet 75 mg PO DAILY Qty: 60 RF: 0 ezetimibe 10 mg tablet 10 mg PO DAILY Qty: 60 RF: 0 lisinopril 20 mg Tablet 40 mg PO DAILY RF: 0 docusate sodium 100 mg Capsule 100 mg PO BID PRN (Reason: Constipation) RF: 0 bisacodyl 10 mg Suppository 10 mg MO DAILY PRN (Reason: Constipation) RF: 0 polyethylene glycol 3350 [Miralax] 17 gram/dose Powder 17 g PO DAILY PRN (Reason: Constipation) RF: 0 sodium phosphates [Fleet Enema] 19-7 gram/118 mL Enema 118 ml MO DAILY PRN (Reason: Constipation) RF: 0 Discontinued multivitamin Tablet 1 tab PO DAILY RF: 0 cyanocobalamin (vitamin B-12) 100 mcg Tablet 100 mcg PO DAILY RF: 0 pantoprazole 40 mg tablet,delayed release (DR/EC) 40 mg PO BID RF: 0 coenzyme Q10 [CoQ-10] 100 mg Capsule 100 mg PO DAILY RF: 0 cinnamon bark [Cinnamon] 500 mg Capsule 1,000 mg PO DAILY RF: 0 biotin 1 mg Tablet 1 mg PO DAILY RF: 0 cholecalciferol (vitamin D3) 5,000 unit Tablet 5,000 unit PO DAILY RF: 0 enoxaparin 40 mg/0.4 mL Syringe 40 mg SUBCUT DAILY RF: 0 atenolol 25 mg Tablet 25 mg PO DAILY RF: 0 clonidine HCl 0.1 mg Tablet 0.1 mg PO BID RF: 0 magnesium hydroxide [Milk Of Magnesia Concentrated] 2,400 mg/10 mL Suspension 30 ml PO DAILY PRN (Reason: Constipation) RF: 0 acetaminophen [Tylenol] 325 mg Tablet 650 mg PO Q4H PRN (Reason: Pain (Scale Score 1-3)) RF: 0 sennosides-docusate sodium [Senokot-S] 8.6-50 mg Tablet 1 tab PO .DAILY@LUNCH RF: 0 Stand-Alone Forms: [facility] Discharge Orders: Discharge Order (Routine); Ordered 04/01/18 Ordered By: Amy Wyatt Admission Data Admit Date/Time: 03/27/18 23:23 Attending Provider: Amy Wyatt Admit Provider: Wendi Landon Primary Care Provider: Broderick Carmona V. Other Providers: Shane Griffin ; Wendi Landon Service: Telemetry Other Interventions: Discharge Summary Assessment (RN) Last Done: 04/01/18 13:47 DC Date/Time DO NOT enter until pt leaves facility: 04/01/18 14:40 Supervising Physician Co-Signing Physician Notes .
== END 2018-04-01 14:40 | DRG 65 ==
LOC: ED 17:22 → SUATTDRO 23:23 → 2S 23:23